=== PATIENT | female | born 1935 | race African-American/Black ===

== ENCOUNTER 2017-03-07 14:50 | Emergency (ER) | payer OTHER ==
[2017-03-07 15:20] VITALS: TEMP 97.3; BMI 20.7
--- NOTE | 2017-03-07 15:30 | PDOC ---
Attending Attestation - Resident Resident Name: Heather Abarca - HPI HPI: 03/07/17 18:48 Pt presents to the ED after witnessed fall down 12 stairs. Denies pain. Denies LOC. Patient was able to ambulate after the injury. - Physicial Exam PE: 03/07/17 18:49 Agree with resident exam. Patient is alert and oriented x 3, with no external signs of trauma except for small abrasion to head. Bedside FAST negative. - Medical Decision Making 03/07/17 18:53 Pt presents to the ED after fall down 12 stairs. Despite age and mechanism of injury, patient is largely asymptomatic. Ct head and C spine checked to rule out intracranial or cervical spinal injury. Xray pelvis is negative for fx. Will check cxr to rule out rib fracture. Patient complaining of vertigo, improved after meclizine. Will discharge home if cxr is negative.
--- NOTE | 2017-03-07 15:45 | PDOC ---
History of Present Illness - General Chief Complaint: Injury Stated Complaint: FALL/HEAD INJURY Time Seen by Provider: 03/07/17 15:28 History Source: Patient - History of Present Illness Initial Comments: 03/07/17 15:43 Patient is a 81 y.o. female with a PMH of HTN, DLD, Breast CA (s/p radiation) who presents following a fall down 12 stairs. Patient states she was walking down a flight of stairs when she tripped and slid down the stairs on her back. Patient denies any pre-fall dyspnea, chest pain, nausea or lightheadedness. Patient denies any post fall LOC and was immediately ambulatory after the fall. Patient is c/o of headache but denies and visual changes, AMS, nausea/ vomiting. NKDA Surgical: cholecystectomy Past History - Past Medical History Allergies/Adverse Reactions: Allergies Allergy/AdvReac Type Severity Reaction Status Date / Time No Known Drug Allergies Allergy Verified 03/07/17 15:17 Home Medications: Ambulatory Orders Atenolol [Tenormin -] 50 mg PO DAILY 03/07/17 Bimatoprost [Lumigan] 1 drop OU HS 03/07/17 Brimonidine Tartrate/Timolol [Combigan Eye Drops] 1 drop OU BID 03/07/17 Diltiazem Cd [Cardizem Cd -] 240 mg PO DAILY 03/07/17 Hydrochlorothiazide 12.5 mg PO DAILY 03/07/17 Lisinopril [Prinivil -] 40 mg PO DAILY 03/07/17 Meclizine HCl 25 mg PO TID PRN #21 tab.chew 03/07/17 [place]-3 Fatty Acids [[place]-3] 1,000 mg PO DAILY 03/07/17 Pilocarpine 4% [Pilostat 4% -] 1 drop OS TID 03/07/17 Cancer: Yes (lt breast) COPD: No HTN: Yes - Immunization History Immunization Up to Date: No - Suicide/Smoking/Psychosocial Hx Smoking History: Never smoked Have you smoked in the past 12 months: No Information on smoking cessation initiated: No Hx Alcohol Use: No Drug/Substance Use Hx: No Substance Use Type: None Review of Systems - Review of Systems Constitutional: No: Chills, Fever HEENTM: No: Blurred Vision, Double Vision Respiratory: No: Shortness of Breath Cardiac (ROS): No: Chest Pain, Lightheadedness *Physical Exam - Vital Signs Last Vital Signs Temp Pulse Resp BP Pulse Ox 97.3 F L 52 L 20 175/58 98 03/07/17 15:17 03/07/17 15:17 03/07/17 15:17 03/07/17 15:17 03/07/17 15:17 - Physical Exam General Appearance: Yes: Nourished, Appropriately Dressed HEENT: positive: EOMI, BRITTNY, Other ((-) Peña sign). negative: TM Bulging, TM Dull, TM Erythema Neck: positive: Trachea midline, Supple Respiratory/Chest: positive: Lungs Clear Cardiovascular: positive: S1, S2 Gastrointestinal/Abdominal: positive: Normal Bowel Sounds, Soft Musculoskeletal: positive: Other (No C-spine/vertebral tenderness/step-off; patient moving all 4 extremities). negative: Decreased Range of Motion, Vertebral Tenderness Neurologic: positive: bobbin doffer II-XII NML intact, Fully Oriented, Alert ED Treatment Course - RADIOLOGY Radiology Studies Ordered: Category Date Time Status CERVICAL SPINE CT W/O CONTR [CT] Stat CT Scan 03/07/17 15:[address] WITHOUT CONTRAST [CT] Stat CT Scan 03/07/17 15:33 Ordered CHEST PA & LAT [RAD] Stat Radiology 03/07/17 15:39 Ordered PELVIS [RAD] Stat Radiology 03/07/17 15:38 Ordered Medical Decision Making - Medical Decision Making 03/07/17 16:06 Patient is an 81 y.o. female who presents following a likely mechanical fall. On PE patient is hemodynamically stable, alert, moving all 4 extremities. PLAN: 1. CT Head 2. C-spine 03/07/17 17:28 CT Head/C-spine negative. Bedside FAS negative. Patient c/o vertigo. Meclizine for vertigo + Tylenol for pain control. Will irrigate superficial head laceration, CXR/Pelvic XR pending. Reasess. 03/07/17 20:36 Patient resting comfortably. Meclizine for vertigo. Patient signed out to Dr. Beasley (Resident) and Dr. Dolan (Attending) - likely dispo home pending CXR result. *DC/Admit/Observation/Transfer Diagnosis at time of Disposition: Injury - Prescriptions Prescriptions: Meclizine HCl 25 mg PO TID PRN #21 tab.chew PRN Reason: Headache - Referrals Referrals: Tiffani Sandoval [Primary Care Provider] - - Patient Instructions - Post Discharge Activity
[2017-03-07] MEDS ORDERED: ACETAMINOPHEN 500 MG TABLET (FP) PO ONE (17:12)
[2017-03-07] MEDS ORDERED: MECLIZINE HCL 12.5 MG TABLET PO ONE (17:13)
[2017-03-07] MEDS ORDERED: MECLIZINE HCL 12.5 MG TABLET ONE (17:21)
[2017-03-07] MEDS ORDERED: ACETAMINOPHEN 325 MG TABLET (FP) ONE (17:21)
[2017-03-07 17:47] VITALS: BP 175/65; PULSE 55
[2017-03-07] MEDS ORDERED: TETANUS IMMUNE GLOBULIN 250 UNITS DISP.SYRIN IM ONE (18:55)
[2017-03-07] MEDS ORDERED: DIPHTH,PERTUSS(ACELL),TET 0.5 ML DISP.SYRIN IM ONE (18:58)
--- NOTE | 2017-03-07 21:55 | PDOC ---
*Physical Exam - Vital Signs Last Vital Signs Temp Pulse Resp BP Pulse Ox 97.3 F L 55 L 16 175/65 100 03/07/17 17:46 03/07/17 17:46 03/07/17 17:46 03/07/17 17:46 03/07/17 17:46 03/07/17 21:48 Patient's care signed out to me by Dr. Abarca at the beginning of my shift. 81F with HTN, DLD, Breast CA (s/p radiation) p/w mechanical fall and and slid down 12 stairs. Patient is c/o of headache but denies and visual changes, AMS, nausea /vomiting. Awaiting CXR official read from radiologist. If the CXR shows no acute processes, and the patient's re-assessment is benign, she will be discharged home. ED Treatment Course - Medications Given in the ED: ED Medications Discontinued Medications Generic Name Dose Route Start Last Admin Trade Name Freq PRN Reason Stop Dose Admin Acetaminophen 1,000 mg 03/07/17 17:12 03/07/17 17:25 Tylenol - PO 03/07/17 17:13 1,000 mg ONCE ONE Administration Diphtheria/Tetanus/Acell Pertussis 0.5 ml 03/07/17 18:58 03/07/17 20:25 Boostrix - IM 03/07/17 18:59 0.5 ml .ONCE ONE Administration Meclizine HCl 12.5 mg 03/07/17 17:13 03/07/17 17:26 Antivert - PO 03/07/17 17:14 12.5 mg ONCE ONE Administration Tetanus Immune Globulin 250 units 03/07/17 18:55 03/07/17 21:26 Hypertet S-D 250 Units Syringe - IM 03/07/17 18:56 Not Given .ONCE ONE *DC/Admit/Observation/Transfer Diagnosis at time of Disposition: Fall Qualifiers: Encounter type: initial encounter Qualified Code(s): W19.XXXA - Unspecified fall, initial encounter Headache Qualifiers: Headache type: unspecified Headache chronicity pattern: unspecified pattern Intractability: not intractable Qualified Code(s): R51 - Headache Closed head injury Qualifiers: Encounter type: initial encounter Qualified Code(s): S09.90XA - Unspecified injury of head, initial encounter Scalp abrasion Qualifiers: Encounter type: initial encounter Qualified Code(s): S00.01XA - Abrasion of scalp, initial encounter - Discharge Dispostion Disposition: HOME Condition at time of disposition: Stable Admit: No - Prescriptions Prescriptions: Meclizine HCl 25 mg PO TID PRN #21 tab.chew PRN Reason: Headache - Referrals Referrals: Tiffani Sandoval [Primary Care Provider] - - Patient Instructions Printed Discharge Instructions: DI for Closed Head Injury Additional Instructions: You were seen in the ER for a fall down stairs and a headache. We did a head CT , neck CT, hip/pelvis x-ray, and chest x-ray and there were no concerning findings. We also noted an abrasion on your head that did not need stitches. Please follow up with your regular doctor early next week, or return to the ER for any new or worsening symptoms. - Post Discharge Activity
== END 2017-03-07 22:08 | disposition home or self-care (01) ==
LOC: JER 14:50
PROC: 3E0234Z Introduction of Serum, Toxoid and Vaccine into Muscle, Percutaneous Approach (ICD-10-PCS; principal; 2017-03-07)
DX: S01.01XA Laceration without foreign body of scalp, initial encounter (principal); W10.8XXA Fall (on) (from) other stairs and steps, initial encounter; Y93.89 Activity, other specified; Y92.89 Other specified places as the place of occurrence of the external cause; Y99.8 Other external cause status; I10 Essential (primary) hypertension; Z85.3 Personal history of malignant neoplasm of breast
CPT/HCPCS: 70450-TC; 71045-TC; 72125-TC; 72170-TC; 90471; 90715; 99282-25

== ENCOUNTER 2017-05-22 21:08 | Inpatient (IN) | payer OTHER ==
[2017-05-22] MEDS ORDERED: ASPIRIN 81 MG CHEWABLE TABLETS PO ONE (21:34)
--- NOTE | 2017-05-22 21:36 | PDOC ---
Rapid Medical Evaluation Time Seen by Provider: 05/22/17 21:32 Medical Evaluation: Allergies Allergy/AdvReac Type Severity Reaction Status Date / Time No Known Drug Allergies Allergy Verified 03/07/17 15:17 05/22/17 21:32 I have performed a brief in-person evaluation of this patient. The patient presents with a chief complaint of: "funny feeling in chest" Pertinent physical exam findings: anitra to 28, weak appearing I have ordered the following: cardiac workup The patient will proceed to the ED for further evaluation. Discharge Disposition - Diagnosis Chest discomfort - Referrals - Patient Instructions - Post Discharge Activity
[2017-05-22 21:59] LABS: BASO % 0.5 % (0-2.0); EOS % 0.9 % (0-4.5); HEMATOCRIT 34.1 % (32.4-45.2); HEMOGLOBIN 11.7 GM/dL (10.7-15.3); LYMPH % 19.7 % (8-40); MCH 32.9 pg (25.7-33.7); MCHC 34.2 g/dl (32.0-36.0); MEAN CELL VOLUME 96.1 fl (80-96); MONO % 7.4 % (3.8-10.2); NEUT % 71.5 % (42.8-82.8); PLATELET COUNT 195 K/MM3 (134-434); RBC 3.54 M/mm3 (3.60-5.2); WHITE BLOOD COUNT 9.2 K/mm3 (4.0-10.0)
[2017-05-22 22:13] LABS: INR 1.07 (0.82-1.09); PROTHROMBIN TIME (PATIENT) 12.1 SEC (9.98-11.88)
--- NOTE | 2017-05-22 22:24 | PDOC ---
History of Present Illness - General Chief Complaint: Chest Pain Stated Complaint: COLD SYMPTOMS Time Seen by Provider: 05/22/17 21:32 History Source: Patient Exam Limitations: No Limitations - History of Present Illness Initial Comments: 05/22/17 22:18 Patient is an 81F with history of a heart murmur, HTN, HLD, and breast cancer here today complaining of weakness, shortness of breath and chest pain that started today. She describes the pain as a pressure in her substernal chest. Denies fevers, chills, nausea, vomiting, cough. She endorses associated shortness of breath. She states that her legs have been more swollen recently. Denies ever having a blood clot, recent travel. Patient takes cardizem and atenolol, denies history of afib or prior cardiac issues. Past History - Past Medical History Allergies/Adverse Reactions: Allergies Allergy/AdvReac Type Severity Reaction Status Date / Time No Known Drug Allergies Allergy Verified 05/22/17 22:18 Home Medications: Ambulatory Orders Atenolol [Tenormin -] 50 mg PO DAILY 03/07/17 Bimatoprost [Lumigan] 1 drop OU HS 03/07/17 Brimonidine Tartrate/Timolol [Combigan Eye Drops] 1 drop OU BID 03/07/17 Diltiazem Cd [Cardizem Cd -] 240 mg PO DAILY 03/07/17 Hydrochlorothiazide 12.5 mg PO DAILY 03/07/17 Lisinopril [Prinivil -] 40 mg PO DAILY 03/07/17 Meclizine HCl 25 mg PO TID PRN #21 tab.chew 03/07/17 [place]-3 Fatty Acids [[place]-3] 1,000 mg PO DAILY 03/07/17 Pilocarpine 4% [Pilostat 4% -] 1 drop OS TID 03/07/17 Cancer: Yes (lt breast) COPD: No HTN: Yes - Immunization History Immunization Up to Date: No - Suicide/Smoking/Psychosocial Hx Smoking History: Never smoked Have you smoked in the past 12 months: No Information on smoking cessation initiated: No Hx Alcohol Use: No Drug/Substance Use Hx: No Substance Use Type: None Review of Systems - Review of Systems Comments:: 05/22/17 22:20 GENERAL/CONSTITUTIONAL: No fever or chills. Positive for weakness. HEAD, EYES, EARS, NOSE AND THROAT: No change in vision. No sore throat. CARDIOVASCULAR: Positive for chest pain and shortness of breath RESPIRATORY: No cough, wheezing, or hemoptysis. GASTROINTESTINAL: No nausea, vomiting, diarrhea or constipation. GENITOURINARY: No dysuria, frequency, or change in urination. MUSCULOSKELETAL: No joint or muscle swelling or pain. No neck or back pain. SKIN: No rash NEUROLOGIC: No headache, vertigo, loss of consciousness, or change in strength/ sensation. HEMATOLOGIC/LYMPHATIC: No anemia, easy bleeding, or history of blood clots. ALLERGIC/IMMUNOLOGIC: No hives or skin allergy. *Physical Exam - Vital Signs Last Vital Signs Temp Pulse Resp BP Pulse Ox 36 L 18 118/69 100 05/22/17 21:15 05/22/17 21:15 05/22/17 21:15 05/22/17 21:15 - Physical Exam Comments: 05/22/17 22:21 GENERAL: Awake, alert, and fully oriented, in no acute distress HEAD: No signs of trauma, normocephalic, atraumatic EYES: PERRLA, EOMI, sclera anicteric, conjunctiva clear ENT: Auricles normal inspection, hearing grossly normal, nares patent, oropharynx clear without exudates. Moist mucosa NECK: Normal ROM, supple, no lymphadenopathy, JVD, or masses LUNGS: No distress, speaks full sentences, clear to auscultation bilaterally HEART: Bradycardic, no m/r/g, peripheral pulses normal and equal bilaterally. ABDOMEN: Soft, nontender, normoactive bowel sounds. No guarding, no rebound. No masses EXTREMITIES: Normal inspection, Normal range of motion, bilateral pitting edema. No clubbing or cyanosis. NEUROLOGICAL: Cranial nerves II through XII grossly intact. Normal speech, no focal sensorimotor deficits SKIN: Warm, Dry, normal turgor, no rashes or lesions noted. Heart Score/ECG Review - History History: Moderately suspicious - Electrocardiogram EKG: Non specific repolarization disturbance - Age Age: >/= 65 - Risk Factors Risk Factors Heart Score: Yes Hx Hypercholesterolemia, Yes Hx Hypertension Based on the list above the patient has:: 1-2 risk factors - Troponin Troponin: 1-3x normal limit - Score Heart Score - Total: 6 ED Treatment Course - LABORATORY CBC & Chemistry Diagram: 05/22/17 21:51 05/22/17 21:51 - ADDITIONAL ORDERS Additional order review: Laboratory Results 05/22/17 21:51 PT with INR 12.10 H INR 1.07 05/22/17 21:51 RBC 3.54 L MCV 96.1 H MCHC 34.2 RDW 13.0 MPV 10.0 Neutrophils % 71.5 Lymphocytes % 19.7 D Monocytes % 7.4 Eosinophils % 0.9 D Basophils % 0.5 Medical Decision Making - Medical Decision Making 05/22/17 22:21 Patient is an 81F with history of HTN, HLD, Breast cancer, heart murmur here today with shortness of breath, chest pain, bilateral pitting edema. Vital signs notable for bradycardia to 30s, BPs stable, patient mentating well. Has some chest pain and shortness of breath, but appears comfortable. DDx includes, but is not limited to: ACS, arrhythmia, CHF exacerbation. EKG shows junctional bradycardia, no p waves visible. Rate 32. Diffusely flattened t waves, inverted in V5/6. . No st depressions or inversions. Normal QRS width. 05/22/17 22:27 CXR shows mild pulmonary vascular congestion, no acute cardiopulmonary process. 05/22/17 22:49 Patient reassessed, HR now 43. BPs remain stable. Patient asymptomatic. 05/22/17 22:52 Laboratory Tests 04/04/15 05/22/17 05/22/17 23:41 21:51 21:51 WBC 9.2 Hgb 11.7 Hct 34.1 Plt Count 195 INR 1.07 Potassium BUN Creatinine 1.9 H Troponin I 05/22/17 21:51 WBC Hgb Hct Plt Count INR Potassium 5.0 BUN 48 H Creatinine 3.0 H Troponin I 0.13 H CBC normal. Troponin in indeterminate zone at .13. Cr 3.0, only other prior value 1.9. 05/22/17 22:58 Dr Cm from cardiology consulted. Patient is stable, does not need immediate placement of pacemaker or transfer. Suggest placement of patient in ICU for close monitored. Suggests giving calcium or glucagon if patient becomes unstable. 05/22/17 23:07 Approved for ICU by CEDRICK Contreras. Accepted for admission by Dr Rubi. *DC/Admit/Observation/Transfer Diagnosis at time of Disposition: Chest pain - Discharge Dispostion Condition at time of disposition: Guarded Admit: Yes - Referrals - Patient Instructions - Post Discharge Activity
[2017-05-22 22:31] LABS: ALBUMIN 3.1 g/dl (3.4-5.0); ANION GAP 10 (8-16); BILIRUBIN,TOTAL 0.2 mg/dL (0.2-1.0); BLOOD UREA NITROGEN 48 mg/dL (7-18); CALCIUM 8.6 mg/dL (8.5-10.1); CHLORIDE 102 mmol/L (98-107); CO2 26 mmol/L (21-32); GLUCOSE,RANDOM 158 mg/dL (74-106); MAGNESIUM 2.9 mg/dL (1.8-2.4); SGOT/AST 98 U/L (15-37); SGPT/ALT 95 U/L (12-78); SODIUM 138 mmol/L (136-145); TOT PROT 7.5 g/dl (6.4-8.2)
[2017-05-22 22:33] LABS: ALK PHOS 93 U/L (45-117)
[2017-05-22] MEDS ORDERED: ASPIRIN 81 MG CHEWABLE TABLETS ONE (22:58)
--- NOTE | 2017-05-22 23:32 | CONSULT ---
Consult - text type - Consultation Consultation Note: Pt seen and examined CC: Bradycardia, chest pain HPI: Briefly Ms Aguirre is an 81F with history of a heart murmur, HTN, HLD, and breast cancer (not on active chemo) who presented to ED today with 1 day hx of weakness, SOB, and substernal chxt pressure. This is a novel complaint for her. She denies LOC, N/V/D, sick prodrome or contacts, falls, recent illness or hospitalization. No recent med changes. No hx of dysrhthmias. She also relates mild increase in LE edema. No hx of recent travel. In ED pt was afebrile, normotensive, HR in 30s, RR 20, spo2 oK on RA. EKG showed junctional rhythm, no p waves, twave flattening in lateral leads, no ST elevation, intervals otherwise WNL. Electrolytes WNL. Cr elevated at 3, up from 1.6 ~ 2 yrs ago. Trop Pt was without acute decompensation. Cardiology was consulted. [place] likely to be med related, and asked for ICU admission. Opted against TVP. First Trop 0.13. Given Asa 162mg. Transferred to ICU, on arrival in ICU pt converted to sinus with HR 62, without complaint or hemodynamic changes. Recent Travel: none PAST MEDICAL HISTORY: as above PAST SURGICAL HISTORY: as above, cholecystectomy (>30 yrs ago), hysterectomy Social History: retired Smoking: denies Alcohol: denies Drugs: denies Family History: father- HTN, stroke (1972) - passed at age 67, eldest brother - stroke Allergies No Known Drug Allergies Allergy (Verified 05/22/17 22:18) HOME MEDICATIONS: Home Medications Medication Instructions Recorded Atenolol [Tenormin -] 50 mg PO DAILY 03/07/17 Bimatoprost [Lumigan] 1 drop OU HS 03/07/17 Brimonidine Tartrate/Timolol 1 drop OU BID 03/07/17 [Combigan Eye Drops] Diltiazem Cd [Cardizem Cd -] 240 mg PO DAILY 03/07/17 Hydrochlorothiazide 12.5 mg PO DAILY 03/07/17 [place]-3 Fatty Acids [[place]-3] 1,000 mg PO DAILY 03/07/17 Pilocarpine 4% [Pilostat 4% -] 1 drop OS TID 03/07/17 Amlodipine Besylate/Valsartan 1 each PO DAILY 05/22/17 [Amlodipine-Valsartan 10-160 mg] Folic Acid - 1 mg PO DAILY 05/22/17 Rosuvastatin [Crestor -] 5 mg PO HS 05/22/17 Current Medications Atropine Sulfate (Atropine Injection -) 0.4 mg IVPUSH Q6H PRN PRN Reason: MAP<65mm Hg OR SBP <90 Chlorhexidine Gluconate (Hibiclens For Decolonization -) 1 applic TP HS MARIA TERESA Sodium Chloride (Normal Saline -) 1,000 mls @ 75 mls/hr IV ASDIR MARIA TERESA Mupirocin (Bactroban Ointment (For Decolonization) -) 1 applic NS BID MARIA TERESA Stop: 05/28/17 09:59 Non-Formulary Medication (Bimatoprost [Lumigan]) 1 drop OU HS MARIA TERESA Non-Formulary Medication (Brimonidine Tartrate/Timolol [Combigan 0.2%-0.5% Eye Drops]) 1 drop OU BID MARIA TERESA Pilocarpine HCl (Pilostat 4% -) 1 drop OS TID MARIA TERESA Rosuvastatin Calcium (Crestor -) 5 mg PO HS MARIA TERESA CBCD WBC 9.2 K/mm3 (4.0-10.0) 05/22/17 21:51 RBC 3.54 M/mm3 (3.60-5.2) L 05/22/17 21:51 Hgb 11.7 GM/dL (10.7-15.3) 05/22/17 21:51 Hct 34.1 % (32.4-45.2) 05/22/17 21:51 MCV 96.1 fl (80-96) H 05/22/17 21:51 MCHC 34.2 g/dl (32.0-36.0) 05/22/17 21:51 RDW 13.0 % (11.6-15.6) 05/22/17 21:51 Plt Count 195 K/MM3 (134-434) 05/22/17 21:51 MPV 10.0 fl (7.5-11.1) 05/22/17 21:51 CMP Sodium 138 mmol/L (136-145) 05/22/17 21:51 Potassium 5.0 mmol/L (3.5-5.1) 05/22/17 21:51 Chloride 102 mmol/L (98-107) 05/22/17 21:51 Carbon Dioxide 26 mmol/L (21-32) 05/22/17 21:51 Anion Gap 10 (8-16) 05/22/17 21:51 BUN 48 mg/dL (7-18) H 05/22/17 21:51 Creatinine 3.0 mg/dL (0.55-1.02) H 05/22/17 21:51 Creat Clearance w eGFR 14.98 (>60) 05/22/17 21:51 Random Glucose 158 mg/dL (74-106) H 05/22/17 21:51 Calcium 8.6 mg/dL (8.5-10.1) 05/22/17 21:51 Total Bilirubin 0.2 mg/dL (0.2-1.0) D 05/22/17 21:51 AST 98 U/L (15-37) H 05/22/17 21:51 ALT 95 U/L (12-78) H 05/22/17 21:51 Alkaline Phosphatase 93 U/L (45-117) 05/22/17 21:51 Total Protein 7.5 g/dl (6.4-8.2) 05/22/17 21:51 Albumin 3.1 g/dl (3.4-5.0) L 05/22/17 21:51 CARDIAC ENZYMES Creatine Kinase 46 IU/L (26-192) 05/22/17 21:51 Troponin I 0.13 ng/ml (0.00-0.05) H 05/22/17 21:51 Vital Signs Temp 97.8 F 05/23/17 02:00 Pulse 63 05/23/17 02:00 Resp 18 05/23/17 02:00 BP 126/61 05/23/17 02:00 Pulse Ox 100 05/22/17 23:55 Intake & Output 05/22/17 05/22/17 05/23/17 11:59 23:59 11:59 Weight 66.366 kg Other: Voiding Method Toilet Height 4 ft 10 in Body Mass Index (BMI) 30.5 Weight Measurement Method Built in [facility] Weight Measurement Method Est/Stated by Patient ROS: 10 pt review, negative except as per HPI CXR: clear, no infiltrate or ptx EKG: junctional at 38 with diffuse flattened twave, inverted in V5, V6 GENERAL: eld woman, no distress HEENT: NCAT PERRL, EOMI LUNGS: Clear bilat, no wheezes HEART: RRR, no m/r/g ABDOMEN: Soft, NT, Non distended, no palp masses EXT: no edema, 2+ pulses throughout NEUROLOGICAL: non focal exam A/ 81 y/o woman with symptomatic bradycardia, medication or ACS related now resolved, admitted to ICU for observation P/ -cards consulted -holding antihtn and BB -tele -atropine, glucagon/Ca++ if reoccurs and unstable -TTE -serial trop x 3 -gentle hydration for ? ESPERANZA, f/u with outpt records for baseline Cr - ok for tele in am if remains in sinus Ben CHARLESP 2016 [id number]
[2017-05-23 00:46] VITALS: BMI 30.5
--- NOTE | 2017-05-23 01:07 | PDOC ---
Attending Attestation - HPI HPI: 05/23/17 01:08 Patient is an 81 year old female with a significant past medical history of HTN , DLD, Breast CA (s/p radiation), who presents to the ED with complaints of chest discomfort that began earlier tonight at 7:30pm. Patient reports initially feeling chest discomfort within her chest followed by associated symptoms of fever, chills and increased sweating, prompting her to come into the ED for further evaluaion. Denies nausea, vomiting. Denies contact with sick individuals, out of state travelling. Denies any other symptoms. Allergies: None Social history: No smoking. No alcohol. No illicit drugs. Surgical history: cholecystectomy, gallstones. PMD: Not on staff. <Efra Aguila - Last Filed: 05/23/17 01:08> - Resident Resident Name: Sen Rojas - ED Attending Attestation I have performed the following: I have examined & evaluated the patient, The case was reviewed & discussed with the resident, I agree w/resident's findings & plan, Exceptions are as noted - Physicial Exam PE: 05/23/17 01:06 *Physical Exam General Appearance: Yes: Appropriately Dressed. No: Apparent Distress, Intoxicated HEENT: positive: EOMI, BRITTNY, Normal ENT Inspection, Normal Voice, TMs Normal, Pharynx Normal. negative: Pale Conjunctivae, Photophobia, Scleral Icterus (R), Scleral Icterus (L) Neck: positive: Trachea midline, Normal Thyroid, Supple. negative: Tender, Rigid, Carotid bruit, Stridor, Lymphadenopathy (R), Lymphadenopathy (L), Thyromegaly Respiratory/Chest: positive: Lungs Clear, Normal Breath Sounds. negative: Chest Tender, Respiratory Distress, Accessory Muscle Use, Labored Respiration, RES, Crackles, Rales, Rhonchi, Stridor, Wheezing, Dullness Cardiovascular: positive: Mian Rhythm, Regular Rate, S1, S2. negative: Edema , JVD, Murmur, Bradycardia, Tachycardia Vascular Pulses: Dorsalis-Pedis (R): 2+, Doralis-Pedis (L): 2+ Gastrointestinal/Abdominal: positive: Normal Bowel Sounds, Flat, Soft. negative : Tender, Organomegaly, Pulsatile Mass, Increased Bowel Sounds, Decreased BS, Distended, Guarding, Rebound, Hernia, Hepatomegaly, Spleenomegaly Lymphatic: negative: Adenopathy, Tenderness Musculoskeletal: positive: Normal Inspection. negative: CVA Tenderness, Decreased Range of Motion Extremity: positive: Normal Capillary Refill, Normal Inspection, Normal Range of Motion, Pelvis Stable. negative: Tender, Pedal Edema, Swelling, Erythema Integumentary: positive: Normal Color, Dry, Warm. negative: Cyanotic, Erythema , Jaundice, Rash Neurologic: positive: cook syrup maker II-XII NML intact, Fully Oriented, Alert, Normal Mood/ Affect, Motor Strength 5/5. negative: EOM Palsy, Facial Droop, Sensory Deficit - Medical Decision Making 05/27/17 19:17 Pt admitted to ICU for further evaluation and care <Ludin Arnold - Last Filed: 05/27/17 19:17>
[2017-05-23] MEDS ORDERED: SODIUM CHLORIDE 1,000 ML IV SCH (01:30)
[2017-05-23] MEDS ORDERED: ATROPINE SO4 0.4 MG/1 ML VIAL IVPUSH PRN ×3 (01:30→19:35)
--- NOTE | 2017-05-23 02:06 | HP ---
CHIEF COMPLAINT: chest discomfort x 1 day PCP: HISTORY OF PRESENT ILLNESS: 81 y/o old F with a PMH likely aortic stenosis, HTN, HLD, L Breast CA 2005 (s/p radiation, and chemo pill for 5 yrs after), who presents to the ED c/o chest discomfort over the past day. As per pt, at 2pm, pt developed a "funny feeling" in her chest, which was intermittent. She is unable to adequately characterize it, but states that it was a/w diaphoresis and mild SOB at rest, and did not have radiation or associated chest pain. Her sx were mildly alleviated by placing cool water on her face. During this time, pt also endorsed nausea ( without emesis), and increased frequency of BM's, however not characterized as diarrhea. She denies palpitations, SHARMA, fever, chills, chest pain or pressure, or changes in urinary function. While in the ED, pt's EKG showed junctional bradycardia, without p waves visible , with rate of 32 and diffusely flattened t waves, inverted in V5-v6. She was given a dose of aspirin 162mg x 1, and was later reevaluated to have improved rate of in low 40's. Pt was asymptomatic at the time, cardiology was consulted and patient was recommended ICU placement for close observation. On exam in ICU , pt still w/o complaint of chest pain, feeling well. Pt states that she has had no significant past cardiac hx, and has never had an arrythmia in the past. She was just told by a grant coordinator recently that one of her heart valves was "narrow" when she had an ECHO done. ER course was notable for: (1) jnc bradycardia (2) aspirin 162mg PO x 1 (3) Trop + 0.13 Recent Travel: none PAST MEDICAL HISTORY: as above PAST SURGICAL HISTORY: as above, cholecystectomy (>30 yrs ago), hysterectomy Social History: retired Smoking: denies Alcohol: denies Drugs: denies Family History: father- HTN, stroke (1972) - passed at age 67, eldest brother - stroke Allergies No Known Drug Allergies Allergy (Verified 05/22/17 22:18) HOME MEDICATIONS: Home Medications Medication Instructions Recorded Atenolol [Tenormin -] 50 mg PO DAILY 03/07/17 Bimatoprost [Lumigan] 1 drop OU HS 03/07/17 Brimonidine Tartrate/Timolol 1 drop OU BID 03/07/17 [Combigan Eye Drops] Diltiazem Cd [Cardizem Cd -] 240 mg PO DAILY 03/07/17 Hydrochlorothiazide 12.5 mg PO DAILY 03/07/17 Phoenix-3 Fatty Acids [Phoenix-3] 1,000 mg PO DAILY 03/07/17 Pilocarpine 4% [Pilostat 4% -] 1 drop OS TID 03/07/17 Amlodipine Besylate/Valsartan 1 each PO DAILY 05/22/17 [Amlodipine-Valsartan 10-160 mg] Folic Acid - 1 mg PO DAILY 05/22/17 Rosuvastatin [Crestor -] 5 mg PO HS 05/22/17 REVIEW OF SYSTEMS CONSTITUTIONAL: Absent: fever, chills, diaphoresis, generalized weakness, malaise, loss of appetite, weight change HEENT: Absent: rhinorrhea, nasal congestion, throat pain, throat swelling, difficulty swallowing, mouth swelling, ear pain, eye pain, visual changes CARDIOVASCULAR: +chest discomfort Absent: chest pain, syncope, palpitations, irregular heart rate, lightheadedness , peripheral edema RESPIRATORY: +SOB Absent: cough, shortness of breath, dyspnea with exertion, orthopnea, wheezing, stridor, hemoptysis GASTROINTESTINAL: Absent: abdominal pain, abdominal distension, nausea, vomiting, diarrhea, constipation, melena, hematochezia GENITOURINARY: Absent: dysuria, frequency, urgency, hesitancy, hematuria, flank pain, genital pain MUSCULOSKELETAL: Absent: myalgia, arthralgia, joint swelling, back pain, neck pain SKIN: Absent: rash, itching, pallor HEMATOLOGIC/IMMUNOLOGIC: Absent: easy bleeding, easy bruising, lymphadenopathy, frequent infections ENDOCRINE: Absent: unexplained weight gain, unexplained weight loss, heat intolerance, cold intolerance NEUROLOGIC: Absent: headache, focal weakness or paresthesias, dizziness, unsteady gait, seizure, mental status changes, bladder or bowel incontinence PSYCHIATRIC: Absent: anxiety, depression, suicidal or homicidal ideation, hallucinations. PHYSICAL EXAMINATION Vital Signs 05/22/17 05/22/17 05/22/17 21:15 23:10 23:21 Temperature 97.6 F 97.6 F Pulse Rate 36 L 61 Pulse Rate [ 32 L Apical] Respiratory 18 18 18 Rate Blood Pressure 118/69 144/54 Blood Pressure 111/41 [Right Arm] O2 Sat by Pulse 100 100 100 Oximetry (%) GENERAL: Pleasant woman, resting comfortably. Awake, alert, and fully oriented, in no acute distress. HEAD: Normal with no signs of trauma. EYES: Pupils equal, round and reactive to light, extraocular movements intact, sclera anicteric, conjunctiva clear. EARS, NOSE, THROAT: Ears normal, nares patent, oropharynx clear without exudates. Dry mucous membranes NECK: Normal range of motion, supple LUNGS: Breath sounds equal, clear to auscultation bilaterally. No wheezes, and no crackles. No accessory muscle use. HEART: Regular rate and rhythm, normal S1 and S2. +systolic murmur 2nd IS. without rubs, thrills ABDOMEN: Soft, nontender, not distended, normoactive bowel sounds, no guarding, no rebound, no masses. MUSCULOSKELETAL: Decreased ROM in R knee d/t arthritis. No bony deformities or tenderness. No CVA tenderness. UPPER EXTREMITIES: 2+ radial pulses, warm, well-perfused. No cyanosis. No clubbing. No peripheral edema. LOWER EXTREMITIES: 2+ posterior tibial pulses, warm, well-perfused. No calf tenderness. No peripheral edema. NEUROLOGICAL: Cranial nerves II-XII intact. Laboratory Results 05/22/17 05/22/17 05/22/17 21:51 21:51 21:51 WBC 9.2 RBC 3.54 L Hgb 11.7 Hct 34.1 MCV 96.1 H MCH 32.9 MCHC 34.2 RDW 13.0 Plt Count 195 MPV 10.0 Neutrophils % 71.5 Lymphocytes % 19.7 D Monocytes % 7.4 Eosinophils % 0.9 D Basophils % 0.5 PT with INR 12.10 H INR 1.07 Sodium 138 Potassium 5.0 Chloride 102 Carbon Dioxide 26 Anion Gap 10 BUN 48 H Creatinine 3.0 H Creat Clearance w eGFR 14.98 Random Glucose 158 H Calcium 8.6 Magnesium 2.9 H Total Bilirubin 0.2 D AST 98 H ALT 95 H Alkaline Phosphatase 93 Creatine Kinase 46 Troponin I 0.13 H Total Protein 7.5 Albumin 3.1 L CXR: no infiltrates, without pleural effusion or pulm congestion EKG: junctional bradycardia, without p waves visible, with rate of 32 and diffusely flattened t waves, inverted in V5-v6 ASSESSMENT/PLAN: 81 y/o old F with a PMH likely aortic stenosis, HTN, HLD, L Breast CA 2005 (s/p radiation, and chemo pill for 5 yrs after), who presents to the ED c/o chest discomfort over the past day. Pt admitted to ICU for further monitoring of [facility] bradycardia. #Junctional bradycardia -Pt with initial EKG with rate 32 while in ED, without complaint of pain -Currently rate ~60's -Initial trop + 0.13 -continue to follow trops q6h, next trop 3AM -Serial EKGs -Cardio consult: Dr. Cm -Atropine 0.4 mg IVP q6h if symptomatic -As per cardio, does not need immediate placement of pacemaker or transfer -transcutaneous pacing if necessary to maintain HR >60 -calcium or glucagon if patient becomes unstable -ICU admission -Telemetry monitoring -F/u ECHO #HTN -Currently holding BP meds d/t bradycardia including: -Amlodipine/valsartan 10-160mg PO qd -Atenolol 50mg PO qd -Diltiazem 240 mg PO qd -HCTZ 25mg PO qd #ESPERANZA likely prerenal 2/2 fluid depletion -Pt clinically dry with bump in Cr to 1.9 to 3 (since 2015) -Gentle hydration IV NS 75 cc/hr -F/u renal sono -F/u urine lytes, Uosm, sOsm #HLD -Continue crestor 5mg PO qd #Hx L breast CA 2005 (s/p radiation, chemo pill 5 yrs after) -Currently without complaint -Continue outpatient f/u #F/E/N IV NS 75 cc/hr gentle hydration Serial lytes Sodium controlled diet ; can adjust accordingly #PPX DVT: Hep SQ 5000 BID #Dispo Need for ICU monitoring Visit type - Emergency Visit Emergency Visit: Yes ED Registration Date: 05/22/17 Care time: The patient presented to the Emergency Department on the above date and was hospitalized for further evaluation of their emergent condition. - New Patient This patient is new to me today: Yes Date on this admission: 05/23/17 - Critical Care Critical Care patient: No Hospitalist Screening - Colonoscopy Questionnaire Colonoscopy Questionnaire: Colonoscopy Questionnaire - Patient: 50 - 75 years old and never had a screening colonoscopy: Unknown History of colon or rectal polyps, or CA: Unknown History of IBD, Crohn's disease or UC: Unknown History of abdominal radiation therapy as a child: Unknown - Relative: 1 with colon or rectal CA, or polyps at age 60 or younger: Unknown Colon or rectal CA diagnosed at age 45 or younger: Unknown Multiple relatives with colon or rectal CA: Unknown - Outcome: Screening Result: Negative Screen
--- NOTE | 2017-05-23 03:12 | PN ---
Teaching Attending Note Name of Resident: Luciana Davidson ATTENDING PHYSICIAN STATEMENT I saw and evaluated the patient. Chart, data, imaging reviewed. I reviewed the resident's note and discussed the case with the resident. I agree with the resident's findings and plan as documented. SUBJECTIVE: 81 year old woman with HTN, DLD, Breast CA s/p left mastectomy and radiation presented with "funny" feeling in her chest which started 4/5 in the morning. She denied any chest pain or significant shortness of breath. She was found to be bradycardic in the ER with and EKG significant for junctional escape rhythm. Patient was otherwise hemodynamically stable. There was no syncope. Cardiology risk management professional was contacted and recommended admission to ICU. OBJECTIVE: Last Vital Signs Temp Pulse Resp BP Pulse Ox 97.8 F 63 18 126/61 100 05/23/17 02:00 05/23/17 02:00 05/23/17 02:00 05/23/17 02:00 05/22/17 23:55 General - appears comfortable, nad heent- at, nc, moist oral mucosa neck -supple, no jvd cv -s1+s2+ rrr, systolic murmur chest- cta b/l abdomen -soft, obese , scar sp cholecystectomy ext- no pedal edema appreciated Abnormal Lab Results 05/22/17 05/22/17 05/22/17 21:51 21:51 21:51 RBC 3.54 L MCV 96.1 H PT with INR 12.10 H BUN 48 H Creatinine 3.0 H Random Glucose 158 H Magnesium 2.9 H AST 98 H ALT 95 H Troponin I 0.13 H Albumin 3.1 L EKG -junctional escape rhythm, bradycardia ASSESSMENT AND PLAN: #Severe bradycardia with transient Junctional escape rhythm on EKG from ER. Currently asymptomatic. Elevated troponin may be cardiac in nature vs ESPERANZA. Low clinical suspiscion for ACS. -admit to ICU for monitoring -atropine 0.5mg IV PRN if symptomatic bradycardia -cardiology evaluation -transcutaneous pacing if necessary to maintain HR >60 -TTE -no Bblockers, or CCBs -trend troponins #ESPERANZA- unknown etiology -daily weights -I/o -rendon catheter -avoid nephrotoxic meds -renal U/S -urine lytes -urine osm -serum osm -UA -continue regular home medications #DVT ppx -heparin sc
[2017-05-23 06:02] LABS: BASO % 0.5 % (0-2.0); EOS % 0.2 % (0-4.5); HEMATOCRIT 33.4 % (32.4-45.2); HEMOGLOBIN 11.6 GM/dL (10.7-15.3); LYMPH % 20.7 % (8-40); MCH 33.2 pg (25.7-33.7); MCHC 34.8 g/dl (32.0-36.0); MEAN CELL VOLUME 95.6 fl (80-96); MEAN PLT VOLUME 11.3 fl (7.5-11.1); MONO % 6.5 % (3.8-10.2); NEUT % 72.1 % (42.8-82.8); PLATELET COUNT 155 K/MM3 (134-434); RBC 3.49 M/mm3 (3.60-5.2); RDW 12.6 % (11.6-15.6); WHITE BLOOD COUNT 8.7 K/mm3 (4.0-10.0)
[2017-05-23 06:20] LABS: ANION GAP 10 (8-16); BLOOD UREA NITROGEN 48 mg/dL (7-18); CALCIUM 8.9 mg/dL (8.5-10.1); CHLORIDE 104 mmol/L (98-107); CO2 26 mmol/L (21-32); CREATININE 2.4 mg/dL (0.55-1.02); GLUCOSE,RANDOM 90 mg/dL (74-106); MAGNESIUM 2.9 mg/dL (1.8-2.4); PHOSPHOROUS 4.5 mg/dL (2.5-4.9); POTASSIUM 4.3 mmol/L (3.5-5.1); SODIUM 140 mmol/L (136-145)
[2017-05-23 06:28] LABS: INR 1.05 (0.82-1.09); PROTHROMBIN TIME (PATIENT) 11.9 SEC (9.98-11.88)
[2017-05-23] MEDS ORDERED: TIMOLOL 0.5% OPHTHALMIC SOL 5 ML BOTTLE OU SCH (10:00)
[2017-05-23] MEDS ORDERED: BRIMONIDINE TARTRATE 0.2% OPHTHALMIC 5 ML BOTTLE OU SCH (10:00)
[2017-05-23] MEDS ORDERED: PATIENT'S OWN MEDICATION (NON-FORMULARY) (Brimonidine Tartrate/Timolol [Combigan 0.2%-0.5% OU SCH (10:00)
[2017-05-23] MEDS ORDERED: MUPIROCIN 2% TOPICAL OINTMENT FOR DECOLONIZATION NS SCH (10:00)
[2017-05-23] MEDS ORDERED: HEPARIN NA (PORCINE) 5,000 UNITS/ML 1ML VIAL SQ SCH (10:00)
[2017-05-23] MEDS ORDERED: PT OWN MED DRAWER 7, Y5N ONE (10:50)
--- NOTE | 2017-05-23 11:54 | CON.CARD ---
Cardiology Consult (text) - Consultation Consultation Note: cc: cp hpi: 81 f hx htn, hld, breast ca here with cp. Occasionally has central chest tightness, mild, better when rubs chest. Had it yesterday at rest but stronger than usual. Also had diaphoresis and generalized weakness. No palps, dizzy, loc, pnd, orthopnea, le edema. In ER found to be in sinus arrest with jcnal escape in 30s. Bp stable. Monitored in icu overnight and now in sr, 60s-70s. Pt feels well, no further cp. pmh: per hpi psh: nc social: no tob ros: per hpi; no vomiting, fever, nausea, diarrhea, miller, vision changes, muscle pains, hematuria, dysuria, gib fam: no premature cad meds: Ambulatory Orders Atenolol [Tenormin -] 50 mg PO DAILY 03/07/17 Bimatoprost [Lumigan] 1 drop OU HS 03/07/17 Brimonidine Tartrate/Timolol [Combigan Eye Drops] 1 drop OU BID 03/07/17 Diltiazem Cd [Cardizem Cd -] 240 mg PO DAILY 03/07/17 Hydrochlorothiazide 12.5 mg PO DAILY 03/07/17 Cabins-3 Fatty Acids [Cabins-3] 1,000 mg PO DAILY 03/07/17 Pilocarpine 4% [Pilostat 4% -] 1 drop OS TID 03/07/17 Amlodipine Besylate/Valsartan [Amlodipine-Valsartan 10-160 mg] 1 each PO DAILY 05/22/17 Folic Acid - 1 mg PO DAILY 05/22/17 Rosuvastatin [Crestor -] 5 mg PO HS 05/22/17 pe: Vital Signs Temp 98.0 F 05/23/17 10:00 Pulse 71 05/23/17 10:00 Resp 17 05/23/17 10:00 BP 115/44 05/23/17 10:00 Pulse Ox 100 05/22/17 23:55 Intake & Output 05/22/17 05/22/17 05/23/17 11:59 23:59 11:59 Intake Total 300 Output Total 400 Balance -100 Weight 146 lb 5 oz 146 lb 5 oz Intake: IV 300 Normal Saline - 1,000 ml 300 @ 75 mls/hr IV ASDIR MARIA TERESA Rx#:[id number] Output: Urine 400 Void 400 Other: Voiding Method Toilet Height 4 ft 10 in Body Mass Index (BMI) 30.5 Weight Measurement Method [facility] Method Est/Stated by Patient nad no jvd rrr s1s2 no r/g, + murmur cta bl nl eff no le e/c/c abd nt nd pos bs no jaundice diaphoresis +dp pt no carotid bruits aa0x3 Laboratory Last Values WBC 8.7 K/mm3 (4.0-10.0) 05/23/17 05:15 RBC 3.49 M/mm3 (3.60-5.2) L 05/23/17 05:15 Hgb 11.6 GM/dL (10.7-15.3) 05/23/17 05:15 Hct 33.4 % (32.4-45.2) 05/23/17 05:15 MCV 95.6 fl (80-96) 05/23/17 05:15 MCH 33.2 pg (25.7-33.7) 05/23/17 05:15 MCHC 34.8 g/dl (32.0-36.0) 05/23/17 05:15 RDW 12.6 % (11.6-15.6) 05/23/17 05:15 Plt Count 155 K/MM3 (134-434) D 05/23/17 05:15 MPV 11.3 fl (7.5-11.1) H D 05/23/17 05:15 Neutrophils % 72.1 % (42.8-82.8) 05/23/17 05:15 Lymphocytes % 20.7 % (8-40) 05/23/17 05:15 Monocytes % 6.5 % (3.8-10.2) 05/23/17 05:15 Eosinophils % 0.2 % (0-4.5) 05/23/17 05:15 Basophils % 0.5 % (0-2.0) 05/23/17 05:15 PT with INR 11.90 SEC (9.98-11.88) H 05/23/17 05:15 INR 1.05 (0.82-1.09) 05/23/17 05:15 Sodium 140 mmol/L (136-145) 05/23/17 05:15 Potassium 4.3 mmol/L (3.5-5.1) 05/23/17 05:15 Chloride 104 mmol/L (98-107) 05/23/17 05:15 Carbon Dioxide 26 mmol/L (21-32) 05/23/17 05:15 Anion Gap 10 (8-16) 05/23/17 05:15 BUN 48 mg/dL (7-18) H 05/23/17 05:15 Creatinine 2.4 mg/dL (0.55-1.02) H 05/23/17 05:15 Creat Clearance w eGFR 14.98 (>60) 05/22/17 21:51 Random Glucose 90 mg/dL (74-106) 05/23/17 05:15 Serum Osmolality 301 mosm/kg (278-305) 05/23/17 05:15 Calcium 8.9 mg/dL (8.5-10.1) 05/23/17 05:15 Phosphorus 4.5 mg/dL (2.5-4.9) 05/23/17 05:15 Magnesium 2.9 mg/dL (1.8-2.4) H 05/23/17 05:15 Total Bilirubin 0.2 mg/dL (0.2-1.0) D 05/22/17 21:51 AST 98 U/L (15-37) H 05/22/17 21:51 ALT 95 U/L (12-78) H 05/22/17 21:51 Alkaline Phosphatase 93 U/L (45-117) 05/22/17 21:51 Creatine Kinase 46 IU/L (26-192) 05/22/17 21:51 Troponin I 0.13 ng/ml (0.00-0.05) H 05/23/17 05:00 Total Protein 7.5 g/dl (6.4-8.2) 05/22/17 21:51 Albumin 3.1 g/dl (3.4-5.0) L 05/22/17 21:51 Blood Type B NEGATIVE 05/22/17 21:51 Antibody Screen Negative 05/22/17 21:51 initial ecg: sinus arrest with junctional escape in 30s repeat ecg: sr, nl intervals, nonspec st-t changes tele: sr 60s-70s cxr: clear lungs a/p: 81 f hx htn, hld, breast ca here with cp. bradycardia: -pt presented with sinus arrest and junctional escape rhythm in 30s -likely related to her home meds of both atenolol and dilt, along with ESPERANZA -after holding meds, now in NSR -avoid further use of meds that cause bradycardia -check echo, tsh -monitor on tele (ok to downgrade from icu now) cp: -atypical, resolved -no signs acs -possibly related to bradycardia -ce's neg -check echo -monitor for now murmur: -possibly -check echo esperanza on ckd: -improving today htn: -dc home dilt and atenolol as above -bp ok now, if needed would resume home norvasc. hold home arb 2/2 esperanza.
--- NOTE | 2017-05-23 12:01 | PN ---
Teaching Attending Note Name of Resident: Jamison Potter ATTENDING PHYSICIAN STATEMENT I saw and evaluated the patient. I reviewed the resident's note and discussed the case with the resident. I agree with the resident's findings and plan as documented. SUBJECTIVE: Patient seen and examined in the ICU. Awake and alert. No CP or SOB. ECHO being performed at the bedside. NSR noted. Intake & Output 05/20/17 05/21/17 05/22/17 05/23/17 23:59 23:59 23:59 23:59 Intake Total 300 Output Total 400 Balance -100 Weight 146 lb 5 oz 146 lb 5 oz Last Vital Signs Temp Pulse Resp BP Pulse Ox 98.0 F 71 17 115/44 100 05/23/17 10:00 05/23/17 10:00 05/23/17 10:00 05/23/17 10:00 05/22/17 23:55 Active Medications Atropine Sulfate (Atropine Injection -) 0.4 mg IVPUSH Q6H PRN PRN Reason: MAP<65mm Hg OR SBP <90 Brimonidine Tartrate (Alphagan 0.2% -) 1 drop OU BID [facility] Last Admin: 05/23/17 10:52 Dose: 1 drop Chlorhexidine Gluconate (Hibiclens For Decolonization -) 1 applic TP HS [facility] Heparin Sodium (Porcine) (Heparin -) 5,000 unit SQ BID [facility] Last Admin: 05/23/17 10:49 Dose: 5,000 unit Sodium Chloride (Normal Saline -) 1,000 mls @ 75 mls/hr IV ASDIR [facility] Last Admin: 05/23/17 02:00 Dose: 75 mls/hr Latanoprost (Xalatan 0.005% Eye Drops -) 1 drop OU HS [facility] Mupirocin (Bactroban Ointment (For Decolonization) -) 1 applic NS BID [facility] Stop: 05/28/17 09:59 Last Admin: 05/23/17 10:51 Dose: 1 applic Pilocarpine HCl (Pilostat 4% -) 1 drop OS TID MARIA TERESA Rosuvastatin Calcium (Crestor -) 5 mg PO HS [facility] Timolol Maleate (Timoptic 0.5%) 1 drop OU BID [facility] Last Admin: 05/23/17 10:51 Dose: 1 drop GENERAL: Awake and alert, NAD HEENT: NCAT PERRL, EOMI LUNGS: Clear, no wheezes HEART: RRR, IV/ DEEJAY heard best over LSB ABDOMEN: Soft, NT, Non distended, no palp masses EXT: trace edema, 2+ pulses throughout NEUROLOGICAL: non focal exam Laboratory Results - last 24 hr 05/22/17 05/22/17 05/22/17 21:51 21:51 21:51 WBC 9.2 RBC 3.54 L Hgb 11.7 Hct 34.1 MCV 96.1 H MCH 32.9 MCHC 34.2 RDW 13.0 Plt Count 195 MPV 10.0 Neutrophils % 71.5 Lymphocytes % 19.7 D Monocytes % 7.4 Eosinophils % 0.9 D Basophils % 0.5 PT with INR 12.10 H INR 1.07 Sodium 138 Potassium 5.0 Chloride 102 Carbon Dioxide 26 Anion Gap 10 BUN 48 H Creatinine 3.0 H Creat Clearance w eGFR 14.98 Random Glucose 158 H Serum Osmolality Calcium 8.6 Phosphorus Magnesium 2.9 H Total Bilirubin 0.2 D AST 98 H ALT 95 H Alkaline Phosphatase 93 Creatine Kinase 46 Troponin I 0.13 H Total Protein 7.5 Albumin 3.1 L Blood Type Antibody Screen 05/22/17 05/23/17 05/23/17 21:51 05:00 05:15 WBC 8.7 RBC 3.49 L Hgb 11.6 Hct 33.4 MCV 95.6 MCH 33.2 MCHC 34.8 RDW 12.6 Plt Count 155 D MPV 11.3 H D Neutrophils % 72.1 Lymphocytes % 20.7 Monocytes % 6.5 Eosinophils % 0.2 Basophils % 0.5 PT with INR INR Sodium Potassium Chloride Carbon Dioxide Anion Gap BUN Creatinine Creat Clearance w eGFR Random Glucose Serum Osmolality Calcium Phosphorus Magnesium Total Bilirubin AST ALT Alkaline Phosphatase Creatine Kinase Troponin I 0.13 H Total Protein Albumin Blood Type B NEGATIVE Antibody Screen Negative 05/23/17 05/23/17 05/23/17 05:15 05:15 05:15 WBC RBC Hgb Hct MCV MCH MCHC RDW Plt Count MPV Neutrophils % Lymphocytes % Monocytes % Eosinophils % Basophils % PT with INR 11.90 H INR 1.05 Sodium 140 Potassium 4.3 Chloride 104 Carbon Dioxide 26 Anion Gap 10 BUN 48 H Creatinine 2.4 H Creat Clearance w eGFR Random Glucose 90 Serum Osmolality 301 Calcium 8.9 Phosphorus 4.5 Magnesium 2.9 H Total Bilirubin AST ALT Alkaline Phosphatase Creatine Kinase Troponin I Total Protein Albumin Blood Type Antibody Screen IMP: Symptomatic bradycardia likely due to Beta biju R/O ACS Acute on CKD Holding BB ECHO IVF Follow Renal function Cardiology evaluation Cardiac Telemetry monitoring Dr Martinez Critical care time spent in reviewing chart, evaluating patient and formulating plan - 36 minutes.
--- NOTE | 2017-05-23 12:27 | EKG ---
Test Reason : Blood Pressure : / mmHG Vent. Rate : 062 BPM Atrial Rate : 062 BPM P-R Int : 196 ms QRS Dur : 080 ms QT Int : 402 ms P-R-T Axes : 027 -04 186 degrees QTc Int : 408 ms NORMAL SINUS RHYTHM MINIMAL VOLTAGE CRITERIA FOR LVH, MAY BE NORMAL VARIANT NONSPECIFIC ST AND T WAVE ABNORMALITY ABNORMAL ECG WHEN COMPARED WITH ECG OF 22-MAY-2017 21:52, SINUS RHYTHM HAS REPLACED JUNCTIONAL RHYTHM VENT. RATE HAS INCREASED BY 30 BPM NONSPECIFIC T WAVE ABNORMALITY HAS REPLACED INVERTED T WAVES IN LATERAL LEADS QT HAS LENGTHENED Confirmed by ALEKSANDAR MORRIS, MIGUEL ([id number]) on 05/23/2017 12:27:11 PM Referred By: Confirmed By:MIGUEL HUERTAS MD
--- NOTE | 2017-05-23 13:36 | PN ---
Physical Exam: SUBJECTIVE: Patient seen and examined No acute events overnight. Patient feels better this AM. In normal sinus rhtyhm. Denies chest pain, shortness of breath, or any palpitations. Yesterday found to have junctional bradycardia to the 30's. Patient started 2 new bp medications. OBJECTIVE: Vital Signs Period Temp Pulse Resp BP Sys/Camacho Pulse Ox Last 24 Hr 97.6 F-98.0 F 32-76 14-19 111-144/41-69 98-100 GENERAL: The patient is awake, alert, and fully oriented, in no acute distress. HEAD: Normal with no signs of trauma. EYES: PERRL, extraocular movements intact, sclera anicteric, conjunctiva clear. No ptosis. ENT: Oropharynx clear without exudates, dry mucous membranes. NECK: Trachea midline, full range of motion, supple. LUNGS: Breath sounds equal, clear to auscultation bilaterally, no wheezes, no crackles, no accessory muscle use. HEART: Regular rate and rhythm, S1, S2 +aortic stenosis murmur 3/6 ABDOMEN: Soft, nontender, nondistended, normoactive bowel sounds, no guarding, no rebound, no hepatosplenomegaly, no masses. EXTREMITIES: 2+ pulses, warm, well-perfused, no edema. NEUROLOGICAL: Cranial nerves II through XII grossly intact. Normal speech, gait not observed. PSYCH: Normal mood, normal affect. SKIN: Warm, dry, normal turgor, no rashes or lesions noted Laboratory Results - last 24 hr 05/22/17 05/22/17 05/22/17 21:51 21:51 21:51 WBC 9.2 RBC 3.54 L Hgb 11.7 Hct 34.1 MCV 96.1 H MCH 32.9 MCHC 34.2 RDW 13.0 Plt Count 195 MPV 10.0 Neutrophils % 71.5 Lymphocytes % 19.7 D Monocytes % 7.4 Eosinophils % 0.9 D Basophils % 0.5 PT with INR 12.10 H INR 1.07 Sodium 138 Potassium 5.0 Chloride 102 Carbon Dioxide 26 Anion Gap 10 BUN 48 H Creatinine 3.0 H Creat Clearance w eGFR 14.98 Random Glucose 158 H Serum Osmolality Calcium 8.6 Phosphorus Magnesium 2.9 H Total Bilirubin 0.2 D AST 98 H ALT 95 H Alkaline Phosphatase 93 Creatine Kinase 46 Troponin I 0.13 H Total Protein 7.5 Albumin 3.1 L Blood Type Antibody Screen 05/22/17 05/23/17 05/23/17 21:51 05:00 05:15 WBC 8.7 RBC 3.49 L Hgb 11.6 Hct 33.4 MCV 95.6 MCH 33.2 MCHC 34.8 RDW 12.6 Plt Count 155 D MPV 11.3 H D Neutrophils % 72.1 Lymphocytes % 20.7 Monocytes % 6.5 Eosinophils % 0.2 Basophils % 0.5 PT with INR INR Sodium Potassium Chloride Carbon Dioxide Anion Gap BUN Creatinine Creat Clearance w eGFR Random Glucose Serum Osmolality Calcium Phosphorus Magnesium Total Bilirubin AST ALT Alkaline Phosphatase Creatine Kinase Troponin I 0.13 H Total Protein Albumin Blood Type B NEGATIVE Antibody Screen Negative 05/23/17 05/23/17 05/23/17 05:15 05:15 05:15 WBC RBC Hgb Hct MCV MCH MCHC RDW Plt Count MPV Neutrophils % Lymphocytes % Monocytes % Eosinophils % Basophils % PT with INR 11.90 H INR 1.05 Sodium 140 Potassium 4.3 Chloride 104 Carbon Dioxide 26 Anion Gap 10 BUN 48 H Creatinine 2.4 H Creat Clearance w eGFR Random Glucose 90 Serum Osmolality 301 Calcium 8.9 Phosphorus 4.5 Magnesium 2.9 H Total Bilirubin AST ALT Alkaline Phosphatase Creatine Kinase Troponin I Total Protein Albumin Blood Type Antibody Screen 05/23/17 11:15 WBC RBC Hgb Hct MCV MCH MCHC RDW Plt Count MPV Neutrophils % Lymphocytes % Monocytes % Eosinophils % Basophils % PT with INR INR Sodium Potassium Chloride Carbon Dioxide Anion Gap BUN Creatinine Creat Clearance w eGFR Random Glucose Serum Osmolality Calcium Phosphorus Magnesium Total Bilirubin AST ALT Alkaline Phosphatase Creatine Kinase Troponin I 0.13 H Total Protein Albumin Blood Type Antibody Screen Active Medications Generic Name Dose Route Start Last Admin Trade Name Freq PRN Reason Stop Dose Admin Atropine Sulfate 0.4 mg 05/23/17 01:58 Atropine Injection - IVPUSH Q6H PRN MAP<65mm Hg OR SBP <90 Brimonidine Tartrate 1 drop 05/23/17 10:00 05/23/17 10:52 Alphagan 0.2% - OU 1 drop BID MARIA TERESA Administration Chlorhexidine Gluconate 1 applic 05/23/17 22:00 Hibiclens For Decolonization - TP HS MARIA TERESA Heparin Sodium (Porcine) 5,000 unit 05/23/17 10:00 05/23/17 10:49 Heparin - SQ 5,000 unit BID MARIA TERESA Administration Sodium Chloride 1,000 mls @ 75 mls/hr 05/23/17 01:30 05/23/17 02:00 Normal Saline - IV 75 mls/hr ASDIR MARIA TERESA Administration Latanoprost 1 drop 05/23/17 22:00 Xalatan 0.005% Eye Drops - OU HS MARIA TERESA Mupirocin 1 applic 05/23/17 10:00 05/23/17 10:51 Bactroban Ointment (For Decolonization) - NS 05/28/17 09:59 1 applic BID MARIA TERESA Administration Pilocarpine HCl 1 drop 05/23/17 06:00 Pilostat 4% - OS TID MARIA TERESA Rosuvastatin Calcium 5 mg 05/23/17 22:00 Crestor - PO HS MARIA TERESA Timolol Maleate 1 drop 05/23/17 10:00 05/23/17 10:51 Timoptic 0.5% OU 1 drop BID MARIA TERESA Administration ASSESSMENT/PLAN: 81 y/o old F with a PMH likely aortic stenosis, HTN, HLD, L Breast CA 2005 (s/p radiation, and chemo pill for 5 yrs after), who presents to the ED c/o chest discomfort over the past day. Pt admitted to ICU for further monitoring of [facility] bradycardia. #Junctional bradycardia, resolved -Holding BP meds -Trops 0.13 x 3 -Cardio consult: Dr. Cm -Atropine 0.4 mg IVP q6h if symptomatic -transcutaneous pacing if necessary to maintain HR >60 -Telemetry monitoring -F/u Echo, TSH #HTN -Currently holding BP meds d/t bradycardia including:-- WILL DC DILT AND ATENOLOL PER CARDIOLOGY -Amlodipine/valsartan 10-160mg PO qd -Atenolol 50mg PO qd -Diltiazem 240 mg PO qd -HCTZ 25mg PO qd #ESPERANZA, likely prerenal vs medication induced -Gentle hydration IV NS 75 cc/hr -renal sono- small right and left kidney--no hydro and stones -F/u urine lytes, Uosm, sOsm -Holding home BP meds #HLD -Continue crestor 5mg PO qd #Hx L breast CA -Currently without complaint -Continue outpatient f/u #F/E/N -IV NS 75 cc/hr gentle hydration -Serial lytes -Sodium controlled diet #PPX -DVT: Hep SQ 5000 BID #Dispo -Transfer to telemetry Visit type - Emergency Visit Emergency Visit: Yes ED Registration Date: 05/22/17 Care time: The patient presented to the Emergency Department on the above date and was hospitalized for further evaluation of their emergent condition. - New Patient This patient is new to me today: Yes Date on this admission: 05/23/17 - Critical Care Critical Care patient: Yes Total Critical Care Time (in minutes): 40 Critical Care Statement: The care of this patient involved high complexity decision making to prevent further life threatening deterioration of the patient 's condition and/or to evaluate & treat vital organ system(s) failure or risk of failure.
--- NOTE | 2017-05-23 14:10 | EKG ---
Test Reason : Blood Pressure : / mmHG Vent. Rate : 032 BPM Atrial Rate : 034 BPM P-R Int : 000 ms QRS Dur : 072 ms QT Int : 476 ms P-R-T Axes : 000 007 238 degrees QTc Int : 347 ms POOR DATA QUALITY, INTERPRETATION MAY BE ADVERSELY AFFECTED JUNCTIONAL BRADYCARDIA MINIMAL VOLTAGE CRITERIA FOR LVH, MAY BE NORMAL VARIANT ABNORMAL ECG WHEN COMPARED WITH ECG OF 04-APR-2015 23:38, JUNCTIONAL RHYTHM HAS REPLACED SINUS RHYTHM VENT. RATE HAS DECREASED BY 23 BPM INVERTED T WAVES HAVE REPLACED NONSPECIFIC T WAVE ABNORMALITY IN LATERAL LEADS QT HAS LENGTHENED Confirmed by ALEKSANDAR MORRIS, MIGUEL ([id number]) on 05/23/2017 2:10:15 PM Referred By: Confirmed By:MIGUEL HUERTAS MD
--- NOTE | 2017-05-23 14:28 | PN ---
Physical Exam: SUBJECTIVE: Ms. Aguirre reports resolution of her chest pain and that she feels like her normal self. OBJECTIVE: Vital Signs Period Temp Pulse Resp BP Sys/Camacho Pulse Ox Last 24 Hr 97.6 F-98.0 F 32-76 14-19 111-144/41-69 98-100 GENERAL: The patient is awake, alert, and fully oriented, in no acute distress. HEAD: Normal with no signs of trauma. EYES: PERRL, extraocular movements intact, sclera anicteric, conjunctiva clear. No ptosis. ENT: Ears normal, nares patent, oropharynx clear without exudates, moist mucous membranes. NECK: Trachea midline, full range of motion, supple. LUNGS: Breath sounds equal, clear to auscultation bilaterally, no wheezes, no crackles, no accessory muscle use. HEART: Regular rate and rhythm, S1, S2 without murmur, rub or gallop. ABDOMEN: Soft, nontender, nondistended, normoactive bowel sounds, no guarding, no rebound, no hepatosplenomegaly, no masses. EXTREMITIES: 2+ pulses, warm, well-perfused, no edema. NEUROLOGICAL: Cranial nerves II through XII grossly intact. Normal speech, gait not observed. PSYCH: Normal mood, normal affect. SKIN: Warm, dry, normal turgor, no rashes or lesions noted Laboratory Results - last 24 hr 05/22/17 05/22/17 05/22/17 21:51 21:51 21:51 WBC 9.2 RBC 3.54 L Hgb 11.7 Hct 34.1 MCV 96.1 H MCH 32.9 MCHC 34.2 RDW 13.0 Plt Count 195 MPV 10.0 Neutrophils % 71.5 Lymphocytes % 19.7 D Monocytes % 7.4 Eosinophils % 0.9 D Basophils % 0.5 PT with INR 12.10 H INR 1.07 Sodium 138 Potassium 5.0 Chloride 102 Carbon Dioxide 26 Anion Gap 10 BUN 48 H Creatinine 3.0 H Creat Clearance w eGFR 14.98 Random Glucose 158 H Serum Osmolality Calcium 8.6 Phosphorus Magnesium 2.9 H Total Bilirubin 0.2 D AST 98 H ALT 95 H Alkaline Phosphatase 93 Creatine Kinase 46 Troponin I 0.13 H Total Protein 7.5 Albumin 3.1 L Blood Type Antibody Screen 05/22/17 05/23/17 05/23/17 21:51 05:00 05:15 WBC 8.7 RBC 3.49 L Hgb 11.6 Hct 33.4 MCV 95.6 MCH 33.2 MCHC 34.8 RDW 12.6 Plt Count 155 D MPV 11.3 H D Neutrophils % 72.1 Lymphocytes % 20.7 Monocytes % 6.5 Eosinophils % 0.2 Basophils % 0.5 PT with INR INR Sodium Potassium Chloride Carbon Dioxide Anion Gap BUN Creatinine Creat Clearance w eGFR Random Glucose Serum Osmolality Calcium Phosphorus Magnesium Total Bilirubin AST ALT Alkaline Phosphatase Creatine Kinase Troponin I 0.13 H Total Protein Albumin Blood Type B NEGATIVE Antibody Screen Negative 05/23/17 05/23/17 05/23/17 05:15 05:15 05:15 WBC RBC Hgb Hct MCV MCH MCHC RDW Plt Count MPV Neutrophils % Lymphocytes % Monocytes % Eosinophils % Basophils % PT with INR 11.90 H INR 1.05 Sodium 140 Potassium 4.3 Chloride 104 Carbon Dioxide 26 Anion Gap 10 BUN 48 H Creatinine 2.4 H Creat Clearance w eGFR Random Glucose 90 Serum Osmolality 301 Calcium 8.9 Phosphorus 4.5 Magnesium 2.9 H Total Bilirubin AST ALT Alkaline Phosphatase Creatine Kinase Troponin I Total Protein Albumin Blood Type Antibody Screen 05/23/17 11:15 WBC RBC Hgb Hct MCV MCH MCHC RDW Plt Count MPV Neutrophils % Lymphocytes % Monocytes % Eosinophils % Basophils % PT with INR INR Sodium Potassium Chloride Carbon Dioxide Anion Gap BUN Creatinine Creat Clearance w eGFR Random Glucose Serum Osmolality Calcium Phosphorus Magnesium Total Bilirubin AST ALT Alkaline Phosphatase Creatine Kinase Troponin I 0.13 H Total Protein Albumin Blood Type Antibody Screen Active Medications Generic Name Dose Route Start Last Admin Trade Name Freq PRN Reason Stop Dose Admin Atropine Sulfate 0.4 mg 05/23/17 01:58 Atropine Injection - IVPUSH Q6H PRN MAP<65mm Hg OR SBP <90 Brimonidine Tartrate 1 drop 05/23/17 10:00 05/23/17 10:52 Alphagan 0.2% - OU 1 drop BID MARIA TERESA Administration Chlorhexidine Gluconate 1 applic 05/23/17 22:00 Hibiclens For Decolonization - TP HS MARIA TERESA Heparin Sodium (Porcine) 5,000 unit 05/23/17 10:00 05/23/17 10:49 Heparin - SQ 5,000 unit BID MARIA TERESA Administration Sodium Chloride 1,000 mls @ 75 mls/hr 05/23/17 01:30 05/23/17 02:00 Normal Saline - IV 75 mls/hr ASDIR MARIA TERESA Administration Latanoprost 1 drop 05/23/17 22:00 Xalatan 0.005% Eye Drops - OU HS MARIA TERESA Mupirocin 1 applic 05/23/17 10:00 05/23/17 10:51 Bactroban Ointment (For Decolonization) - NS 05/28/17 09:59 1 applic BID MARIA TERESA Administration Pilocarpine HCl 1 drop 05/23/17 06:00 Pilostat 4% - OS TID MARIA TERESA Rosuvastatin Calcium 5 mg 05/23/17 22:00 Crestor - PO HS MARIA TERESA Timolol Maleate 1 drop 05/23/17 10:00 05/23/17 10:51 Timoptic 0.5% OU 1 drop BID MARIA TERESA Administration ASSESSMENT/PLAN: Ms. Aguirre is an 81 yo female w/ pmh of aortic stenosis, HTN, HLD, Breast Cancer (s/p radiation on left side and chemo for 5 years) who presents with chest discomfort to ICU with associated bradycardia after beginning beta jeb recently. Patient reporting resolution of symptoms this AM and bradycardia now resolved. Bradycardia - Resolved this AM - Holding Beta Jeb - Trended troponins value 0.13 for all 3 - Dr. Cm consulted - Transcutaneous pacing if necessary - Telemetry monitoring - Echo, TSH pending HTN - Holding home meds with bradycardia ESPERANZA - Prerenal picture with BUN/Cr 48/2.4 (08/03) today - NS for protection FEN - 75 mL/hr NS - Replete electrolytes PRN - Sodium controlled diet PPX - SQH Disposition: Transfer to telemetry for further care. Visit type - Emergency Visit Emergency Visit: Yes ED Registration Date: 05/22/17 Care time: The patient presented to the Emergency Department on the above date and was hospitalized for further evaluation of their emergent condition. - New Patient This patient is new to me today: Yes Date on this admission: 05/23/17 - Critical Care Critical Care patient: Yes Total Critical Care Time (in minutes): 35 Critical Care Statement: The care of this patient involved high complexity decision making to prevent further life threatening deterioration of the patient 's condition and/or to evaluate & treat vital organ system(s) failure or risk of failure.
--- NOTE | 2017-05-23 14:38 | PN ---
Teaching Attending Note Name of Resident: Tono Noriega ATTENDING PHYSICIAN STATEMENT I saw and evaluated the patient. I reviewed the resident's note and discussed the case with the resident. I agree with the resident's findings and plan as documented. SUBJECTIVE: Patient has no complaints. She is sitting in a chair. She denies CP , SOB. OBJECTIVE: Vital Signs Period Temp Pulse Resp BP Sys/Camacho Pulse Ox Last 24 Hr 97.6 F-98.0 F 32-76 14-19 111-144/41-69 98-100 HEART: S1S2, RRR, (+) 3/6 SM LUNGS: Clear ABDOMEN: Soft, non-tender, non-distended, normal BS EXTREMITIES: No edema Laboratory Results - last 24 hr 05/22/17 05/22/17 05/22/17 21:51 21:51 21:51 WBC 9.2 RBC 3.54 L Hgb 11.7 Hct 34.1 MCV 96.1 H MCH 32.9 MCHC 34.2 RDW 13.0 Plt Count 195 MPV 10.0 Neutrophils % 71.5 Lymphocytes % 19.7 D Monocytes % 7.4 Eosinophils % 0.9 D Basophils % 0.5 PT with INR 12.10 H INR 1.07 Sodium 138 Potassium 5.0 Chloride 102 Carbon Dioxide 26 Anion Gap 10 BUN 48 H Creatinine 3.0 H Creat Clearance w eGFR 14.98 Random Glucose 158 H Serum Osmolality Calcium 8.6 Phosphorus Magnesium 2.9 H Total Bilirubin 0.2 D AST 98 H ALT 95 H Alkaline Phosphatase 93 Creatine Kinase 46 Troponin I 0.13 H Total Protein 7.5 Albumin 3.1 L Blood Type Antibody Screen 05/22/17 05/23/17 05/23/17 21:51 05:00 05:15 WBC 8.7 RBC 3.49 L Hgb 11.6 Hct 33.4 MCV 95.6 MCH 33.2 MCHC 34.8 RDW 12.6 Plt Count 155 D MPV 11.3 H D Neutrophils % 72.1 Lymphocytes % 20.7 Monocytes % 6.5 Eosinophils % 0.2 Basophils % 0.5 PT with INR INR Sodium Potassium Chloride Carbon Dioxide Anion Gap BUN Creatinine Creat Clearance w eGFR Random Glucose Serum Osmolality Calcium Phosphorus Magnesium Total Bilirubin AST ALT Alkaline Phosphatase Creatine Kinase Troponin I 0.13 H Total Protein Albumin Blood Type B NEGATIVE Antibody Screen Negative 05/23/17 05/23/1718 05:15 05:15 05:15 WBC RBC Hgb Hct MCV MCH MCHC RDW Plt Count MPV Neutrophils % Lymphocytes % Monocytes % Eosinophils % Basophils % PT with INR 11.90 H INR 1.05 Sodium 140 Potassium 4.3 Chloride 104 Carbon Dioxide 26 Anion Gap 10 BUN 48 H Creatinine 2.4 H Creat Clearance w eGFR Random Glucose 90 Serum Osmolality 301 Calcium 8.9 Phosphorus 4.5 Magnesium 2.9 H Total Bilirubin AST ALT Alkaline Phosphatase Creatine Kinase Troponin I Total Protein Albumin Blood Type Antibody Screen 05/23/17 11:15 WBC RBC Hgb Hct MCV MCH MCHC RDW Plt Count MPV Neutrophils % Lymphocytes % Monocytes % Eosinophils % Basophils % PT with INR INR Sodium Potassium Chloride Carbon Dioxide Anion Gap BUN Creatinine Creat Clearance w eGFR Random Glucose Serum Osmolality Calcium Phosphorus Magnesium Total Bilirubin AST ALT Alkaline Phosphatase Creatine Kinase Troponin I 0.13 H Total Protein Albumin Blood Type Antibody Screen Current Medications Generic Name Dose Route Start Last Admin Trade Name Freq PRN Reason Stop Dose Admin Atropine Sulfate 0.4 mg 05/23/17 01:58 Atropine Injection - IVPUSH Q6H PRN MAP<65mm Hg OR SBP <90 Brimonidine Tartrate 1 drop 05/23/17 10:00 05/23/17 10:52 Alphagan 0.2% - OU 1 drop BID MARIA TERESA Administration Chlorhexidine Gluconate 1 applic 05/23/17 22:00 Hibiclens For Decolonization - TP HS MARIA TERESA Heparin Sodium (Porcine) 5,000 unit 05/23/17 10:00 05/23/17 10:49 Heparin - SQ 5,000 unit BID MARIA TERESA Administration Sodium Chloride 1,000 mls @ 75 mls/hr 05/23/17 01:30 05/23/17 02:00 Normal Saline - IV 75 mls/hr ASDIR MARIA TERESA Administration Latanoprost 1 drop 05/23/17 22:00 Xalatan 0.005% Eye Drops - OU HS MARIA TERESA Mupirocin 1 applic 05/23/17 10:00 05/23/17 10:51 Bactroban Ointment (For Decolonization) - NS 05/28/17 09:59 1 applic BID MARIA TERESA Administration Pilocarpine HCl 1 drop 05/23/17 06:00 Pilostat 4% - OS TID MARIA TERESA Rosuvastatin Calcium 5 mg 04/06/18 22:00 Crestor - PO HS MARIA TERESA Timolol Maleate 1 drop 05/23/17 10:00 05/23/17 10:51 Timoptic 0.5% OU 1 drop BID MARIA TERESA Administration ASSESSMENT AND PLAN: This is an 81 year old woman with a history of HTN, hyperlipidemia, breast cancer who presented to the ED with chest discomfort. 1. Junctional bradycardia - Improved - Atenolol, Cardizem CD held 2. Acute kidney injury - Improving - Renal US shows small kidneys - Diovan, HCTZ held - Continue IV fluid 3. Chest pain - Likely secondary to bradycardia 4. Probable demand ischemia - Check echo 5. Probable aortic stenosis - Check echo 6. HTN - Currently on no medications - Diovan, Norvasc, Cardizem CD, HCTZ held secondary to bradycardia, ESPERANZA 7. Hyperlipidemia - Continue Crestor 8. History of breast cancer
[2017-05-23] MEDS: SODIUM CHLORIDE 1,000 ML IV SCH (20:00)
[2017-05-23] MEDS: HEPARIN NA (PORCINE) 5,000 UNITS/ML 1ML VIAL SQ SCH (21:12)
[2017-05-23] MEDS: PILOCARPINE 4% OS SCH (21:13)
[2017-05-23] MEDS: BRIMONIDINE TARTRATE 0.2% OPHTHALMIC 5 ML BOTTLE OU SCH (21:14)
[2017-05-23] MEDS: TIMOLOL 0.5% OPHTHALMIC SOL 5 ML BOTTLE OU SCH (21:14)
[2017-05-23] MEDS: LATANOPROST 0.005% OPHTH SOLN 2.5ML BOTTLE OU SCH (21:15)
[2017-05-23] MEDS ORDERED: PATIENT'S OWN MEDICATION (NON-FORMULARY) (Bimatoprost [Lumigan] 1 DROP) OU SCH (22:00)
[2017-05-23] MEDS ORDERED: ROSUVASTATIN CA 5 MG TABLET (FP) PO SCH (22:00)
[2017-05-23] MEDS ORDERED: CHLORHEXIDINE GLUCONATE 4% CLEANSER FOR DECOLONIZATION TP SCH (22:00)
[2017-05-23] MEDS ORDERED: LATANOPROST 0.005% OPHTH SOLN 2.5ML BOTTLE OU SCH (22:00)
[2017-05-23] MEDS: ROSUVASTATIN CA 5 MG TABLET (FP) PO SCH (22:01)
[2017-05-24] MEDS: PILOCARPINE 4% OS SCH ×4 (06:08→21:18)
[2017-05-24 07:04] LABS: ALBUMIN 2.9 g/dl (3.4-5.0); ANION GAP 9 (8-16); BILIRUBIN,TOTAL 0.3 mg/dL (0.2-1.0); BLOOD UREA NITROGEN 37 mg/dL (7-18); CALCIUM 8.2 mg/dL (8.5-10.1); CHLORIDE 108 mmol/L (98-107); CO2 26 mmol/L (21-32); GLUCOSE,RANDOM 73 mg/dL (74-106); POTASSIUM 4.3 mmol/L (3.5-5.1); SODIUM 143 mmol/L (136-145)
[2017-05-24 07:49] LABS: ALK PHOS 88 U/L (45-117)
[2017-05-24 09:11] LABS: CREATININE 1.6 mg/dL (0.55-1.02); SGOT/AST 44 U/L (15-37); SGPT/ALT 71 U/L (12-78); TOT PROT 6.5 g/dl (6.4-8.2)
[2017-05-24] MEDS ORDERED: PT OWN MED DRAWER 7, Y5N ONE ×2 (09:11→20:52)
[2017-05-24] MEDS: HEPARIN NA (PORCINE) 5,000 UNITS/ML 1ML VIAL SQ SCH ×2 (09:29→21:18)
[2017-05-24] MEDS: TIMOLOL 0.5% OPHTHALMIC SOL 5 ML BOTTLE OU SCH ×2 (09:30→21:18)
[2017-05-24] MEDS: BRIMONIDINE TARTRATE 0.2% OPHTHALMIC 5 ML BOTTLE OU SCH ×2 (09:31→21:17)
--- NOTE | 2017-05-24 10:07 | PN ---
Teaching Attending Note Name of Resident: Tono Noriega ATTENDING PHYSICIAN STATEMENT I saw and evaluated the patient. I reviewed the resident's note and discussed the case with the resident. I agree with the resident's findings and plan as documented. SUBJECTIVE: Patient has no complaints. OBJECTIVE: Vital Signs Period Temp Pulse Resp BP Sys/Camacho Pulse Ox Last 24 Hr 98.1 F-98.5 F 52-68 12-20 98-134/42-52 100-100 HEART: S1S2, RRR, (+) 3/6 SM LUNGS: Clear ABDOMEN: Obese, soft, non-tender, non-distended, normal BS EXTREMITIES: No edema Laboratory Results - last 24 hr 05/23/17 05/24/17 11:15 05:45 Sodium 143 Potassium 4.3 Chloride 108 H Carbon Dioxide 26 Anion Gap 9 BUN 37 H Creatinine 1.6 H Creat Clearance w eGFR 30.94 Random Glucose 73 L Calcium 8.2 L Total Bilirubin 0.3 D AST 44 H ALT 71 Alkaline Phosphatase 88 Creatine Kinase 54 Troponin I 0.13 H 0.13 H Total Protein 6.5 Albumin 2.9 L TSH 1.21 Current Medications Generic Name Dose Route Start Last Admin Trade Name Freq PRN Reason Stop Dose Admin Atropine Sulfate 0.4 mg 05/23/17 19:35 Atropine Injection - IVPUSH Q6H PRN MAP<65mm Hg OR SBP <90 Brimonidine Tartrate 1 drop 05/23/17 22:00 05/24/17 09:31 Alphagan 0.2% - OU 1 drop BID MARIA TERESA Administration Heparin Sodium (Porcine) 5,000 unit 05/23/17 22:00 05/24/17 09:29 Heparin - SQ 5,000 unit BID MARIA TERESA Administration Sodium Chloride 1,000 mls @ 75 mls/hr 05/23/17 19:35 05/23/17 20:00 Normal Saline - IV 75 mls/hr ASDIR MARIA TERESA Administration Latanoprost 1 drop 05/23/17 22:00 05/23/17 21:15 Xalatan 0.005% Eye Drops - OU 1 drop HS MARIA TERESA Administration Pilocarpine HCl 1 drop 05/23/17 22:00 05/24/17 06:08 Pilostat 4% - OS 1 drop TID MARIA TERESA Administration Rosuvastatin Calcium 5 mg 05/23/17 22:00 05/23/17 22:01 Crestor - PO 5 mg HS MARIA TERESA Administration Timolol Maleate 1 drop 05/23/17 22:00 05/24/17 09:30 Timoptic 0.5% OU 1 drop BID MARIA TERESA Administration ASSESSMENT AND PLAN: This is an 81 year old woman with a history of HTN, hyperlipidemia, breast cancer who presented to the ED with chest discomfort. 1. Junctional bradycardia - Improved - Atenolol, Cardizem CD discontinued 2. Acute kidney injury - Improved - Renal US shows small kidneys - Diovan, HCTZ held 3. Stage 3 CKD 4. Chest pain - Likely secondary to bradycardia 5. Probable demand ischemia 6. Severe aortic regurgitation - Cardiology follow up 6. HTN - Currently on no medications - Diovan, Norvasc, Cardizem CD, HCTZ held secondary to bradycardia, ESPERANZA 7. Hyperlipidemia - Continue Crestor 8. History of breast cancer
--- NOTE | 2017-05-24 15:39 | PN ---
Progress Note (short form) - Note Progress Note: cc: cp S: no further chest heaviness. Feels well, no sob, palps, dizziness. Current Medications Atropine Sulfate (Atropine Injection -) 0.4 mg IVPUSH Q6H PRN PRN Reason: MAP<65mm Hg OR SBP <90 Brimonidine Tartrate (Alphagan 0.2% -) 1 drop OU BID [facility] Last Admin: 05/24/17 21:17 Dose: 1 drop Heparin Sodium (Porcine) (Heparin -) 5,000 unit SQ BID [facility] Last Admin: 05/24/17 21:18 Dose: 5,000 unit Sodium Chloride (Normal Saline -) 1,000 mls @ 75 mls/hr IV ASDIR [facility] Last Admin: 05/24/17 21:17 Dose: 75 mls/hr Latanoprost (Xalatan 0.005% Eye Drops -) 1 drop OU HS [facility] Last Admin: 05/24/17 21:19 Dose: 1 drop Pilocarpine HCl (Pilostat 4% -) 1 drop OS TID [facility] Last Admin: 05/24/17 21:18 Dose: 1 drop Rosuvastatin Calcium (Crestor -) 5 mg PO HS [facility] Last Admin: 05/24/17 21:18 Dose: 5 mg Timolol Maleate (Timoptic 0.5%) 1 drop OU BID [facility] Last Admin: 05/24/17 21:18 Dose: 1 drop pe: Vital Signs - 24 hr 05/24/17 05/24/17 05/24/17 00:22 02:05 04:00 Temperature 98.3 F Pulse Rate 52 L 54 L 54 L Respiratory 13 15 14 Rate Blood Pressure 100/46 98/42 116/50 O2 Sat by Pulse Oximetry (%) 05/24/17 05/24/17 05/24/17 06:15 10:00 14:00 Temperature 98.5 F 98.7 F 97.8 F Pulse Rate 55 L 57 L 56 L Respiratory 15 16 18 Rate Blood Pressure 100/46 115/56 133/57 O2 Sat by Pulse 98 Oximetry (%) Intake & Output 05/22/17 05/23/17 05/24/17 05/25/17 07:59 07:59 07:59 07:59 Intake Total 300 0 920 Output Total 400 Balance -100 2049 920 Weight 146 lb 5 oz nad no jvd rrr s1s2 no r/g, 2/6 sys murmur at sternal border cta bl nl eff no le e/c/c abd nt nd pos bs no jaundice diaphoresis +dp pt no carotid bruits aa0x3 CBC, BMP 05/23/17 05:15 05/24/17 05:45 Laboratory Tests 05/22/17 05/23/17 05/23/17 21:51 05:00 05:15 Creatinine 3.0 H 2.4 H Magnesium 2.9 H Total Bilirubin AST 98 H ALT Alkaline Phosphatase Creatine Kinase 46 Troponin I 0.13 H 0.13 H Albumin TSH 05/23/17 05/24/17 11:15 05:45 Creatinine Magnesium Total Bilirubin 0.3 D AST 44 H ALT 71 Alkaline Phosphatase 88 Creatine Kinase 54 Troponin I 0.13 H 0.13 H Albumin 2.9 L TSH 1.21 initial ecg: sinus arrest with junctional escape in 30s repeat ecg: sr, nl intervals, nonspec st-t changes tele: sr/sb 50's-70's echo 05/2017: nl lv size/fn. tds for rwma. rv not well seen. cannot assess . severe AR (suboptimal study, would recommend confirmation on repeat echo). - OF NOTE: Discussed with patient. She had a recent echo last month with her outpatient drilling contractor. + , no sig AR. Since this echo tds, would defer to last months echo with her outpatient drilling contractor for accurate assessment of valve. cxr: clear lungs a/p: 81 f hx htn (on atenolol and dilt), hld, , Lt breast ca s/p xrt here with cp and found to be in sinus arrest with junctional escape in 30s (hemodynamically stable). bradycardia: -pt presented with sinus arrest and junctional escape rhythm in 30s -likely related to her home meds of both atenolol and dilt, along with ESPERANZA and underlying conduction abnormalities (baseline hr in the 50's) -after holding meds, now back to baseline (SR/SB 50's-70's) - tsh wnl -avoid further use of meds that cause bradycardia -echo with grossly nl systolic function. cp: -atypical, resolved since HR's improved. CE's stable at 0.13 x 4. Repeat ekg ( in SR) without acute ischemic changes. no signs acs. intermediate trop elevation likely 2/2 demand in setting of HR in the 30's. - con't crestor. Patient was on ASA as outpatient, will resume. /AR - suboptimal images on echo. AR reported as severe and unable to assess severity of . Patient states she had recent echo assessment of aortic valve last month with her outpatient drilling contractor --> was told AV was narrow, but not signficantly leaky. Since echo here tds, would defer to patient's outpatient echo for AV findings. esperanza on ckd: -improving s/p IVF and normalization of heart rate. htn: -dc's home dilt and atenolol as above -bp ok now. if needed would resume home norvasc. hold home arb 2/2 esperanza and chlorthalidone while on IVF. stable from CV perspective.
--- NOTE | 2017-05-24 18:34 | PN ---
Physical Exam: SUBJECTIVE: Patient seen and examined No acute events overnight. Patient feels well this AM. In normal sinus rhtyhm. Denies chest pain, shortness of breath, or any palpitations. OBJECTIVE: Vital Signs Period Temp Pulse Resp BP Sys/Camacho Pulse Ox Last 24 Hr 97.8 F-98.7 F 52-82 12-20 98-138/42-63 98-100 GENERAL: The patient is awake, alert, and fully oriented, in no acute distress. HEAD: Normal with no signs of trauma. EYES: PERRL, extraocular movements intact, sclera anicteric, conjunctiva clear. No ptosis. ENT: Oropharynx clear without exudates, dry mucous membranes. NECK: Trachea midline, full range of motion, supple. LUNGS: Breath sounds equal, clear to auscultation bilaterally, no wheezes, no crackles, no accessory muscle use. HEART: Regular rate and rhythm, S1, S2 +Murmur 3/6 ABDOMEN: Soft, nontender, nondistended, normoactive bowel sounds, no guarding, no rebound, no hepatosplenomegaly, no masses. EXTREMITIES: 2+ pulses, warm, well-perfused, no edema. NEUROLOGICAL: Cranial nerves II through XII grossly intact. Normal speech, gait not observed. PSYCH: Normal mood, normal affect. SKIN: Warm, dry, normal turgor, no rashes or lesions noted Laboratory Results - last 24 hr 05/23/17 05/23/17 05/23/17 06:00 11:15 12:00 Sodium Potassium Chloride Carbon Dioxide Anion Gap BUN Creatinine Creat Clearance w eGFR Random Glucose Calcium Total Bilirubin AST ALT Alkaline Phosphatase Creatine Kinase Troponin I Total Protein Albumin TSH 1.21 Urine Osmolality 261 L Ur Random Sodium 50 Ur Random Potassium 15.0 Ur Random Chloride 43 05/24/17 05:45 Sodium 143 Potassium 4.3 Chloride 108 H Carbon Dioxide 26 Anion Gap 9 BUN 37 H Creatinine 1.6 H Creat Clearance w eGFR 30.94 Random Glucose 73 L Calcium 8.2 L Total Bilirubin 0.3 D AST 44 H ALT 71 Alkaline Phosphatase 88 Creatine Kinase 54 Troponin I 0.13 H Total Protein 6.5 Albumin 2.9 L TSH Urine Osmolality Ur Random Sodium Ur Random Potassium Ur Random Chloride Active Medications Generic Name Dose Route Start Last Admin Trade Name Freq PRN Reason Stop Dose Admin Atropine Sulfate 0.4 mg 05/23/17 19:35 Atropine Injection - IVPUSH Q6H PRN MAP<65mm Hg OR SBP <90 Brimonidine Tartrate 1 drop 05/23/17 22:00 05/24/17 09:31 Alphagan 0.2% - OU 1 drop BID MARIA TERESA Administration Heparin Sodium (Porcine) 5,000 unit 05/23/17 22:00 05/24/17 09:29 Heparin - SQ 5,000 unit BID MARIA TERESA Administration Sodium Chloride 1,000 mls @ 75 mls/hr 05/23/17 19:35 05/23/17 20:00 Normal Saline - IV 75 mls/hr ASDIR MARIA TERESA Administration Latanoprost 1 drop 05/23/17 22:00 05/23/17 21:15 Xalatan 0.005% Eye Drops - OU 1 drop HS MARIA TERESA Administration Pilocarpine HCl 1 drop 05/23/17 22:00 05/24/17 15:00 Pilostat 4% - OS 1 drop TID MARIA TERESA Administration Rosuvastatin Calcium 5 mg 05/23/17 22:00 05/23/17 22:01 Crestor - PO 5 mg HS MARIA TERESA Administration Timolol Maleate 1 drop 05/23/17 22:00 05/24/17 09:30 Timoptic 0.5% OU 1 drop BID MARIA TERESA Administration ASSESSMENT/PLAN: 81 y/o old F with a PMH likely aortic stenosis, HTN, HLD, L Breast CA 2005 (s/p radiation, and chemo pill for 5 yrs after), who presents to the ED c/o chest discomfort over the past day. Pt admitted to ICU for further monitoring of jnc bradycardia. #Junctional bradycardia, resolved -Holding BP meds -Trops 0.13 x 3 -Cardio consult: Dr. Cm -Atropine 0.4 mg IVP q6h if symptomatic -transcutaneous pacing if necessary to maintain HR >60 -Telemetry monitoring -Echo: severe AR -Will monitor 1 more night #HTN -Currently holding BP meds d/t bradycardia including:-- WILL DC DILT AND ATENOLOL PER CARDIOLOGY -Amlodipine/valsartan 10-160mg PO qd -Atenolol 50mg PO qd -Diltiazem 240 mg PO qd -Chlorthalidone #ESPERANZA, likely prerenal vs medication induced, resolving -Gentle hydration IV NS 75 cc/hr -renal sono- small right and left kidney--no hydro and stones -Holding home BP meds #HLD -Continue crestor 5mg PO qd #Hx L breast CA -Currently without complaint -Continue outpatient f/u #F/E/N -IV NS 75 cc/hr gentle hydration -Serial lytes -Sodium controlled diet #PPX -DVT: Hep SQ 5000 BID #Dispo -Tele Visit type - Emergency Visit Emergency Visit: Yes ED Registration Date: 05/22/17 Care time: The patient presented to the Emergency Department on the above date and was hospitalized for further evaluation of their emergent condition. - New Patient This patient is new to me today: No - Critical Care Critical Care patient: No
[2017-05-24] MEDS: SODIUM CHLORIDE 1,000 ML IV SCH (21:17)
[2017-05-24] MEDS: ROSUVASTATIN CA 5 MG TABLET (FP) PO SCH (21:18)
[2017-05-24] MEDS: LATANOPROST 0.005% OPHTH SOLN 2.5ML BOTTLE OU SCH (21:19)
[2017-05-25 06:34] LABS: ANION GAP 11 (8-16); BLOOD UREA NITROGEN 26 mg/dL (7-18); CALCIUM 8.2 mg/dL (8.5-10.1); CHLORIDE 110 mmol/L (98-107); CO2 24 mmol/L (21-32); GLUCOSE,RANDOM 70 mg/dL (74-106); SODIUM 145 mmol/L (136-145)
[2017-05-25 06:36] LABS: CREATININE 1.2 mg/dL (0.55-1.02)
[2017-05-25] MEDS: PILOCARPINE 4% OS SCH (08:08)
[2017-05-25] MEDS ORDERED: PT OWN MED DRAWER 7, Y5N ONE (09:45)
[2017-05-25] MEDS: BRIMONIDINE TARTRATE 0.2% OPHTHALMIC 5 ML BOTTLE OU SCH (09:50)
[2017-05-25] MEDS: TIMOLOL 0.5% OPHTHALMIC SOL 5 ML BOTTLE OU SCH (09:50)
[2017-05-25] MEDS: HEPARIN NA (PORCINE) 5,000 UNITS/ML 1ML VIAL SQ SCH (09:51)
[2017-05-25] MEDS ORDERED: ASPIRIN COATED 81 MG TABLET.EC PO SCH (10:00)
--- NOTE | 2017-05-25 11:09 | PN ---
Progress Note (short form) - Note Progress Note: S: no further chest heaviness. Feels well, no sob, palps, dizziness. Current Medications Generic Name Dose Route Start Last Admin Trade Name Rebecca PRN Reason Stop Dose Admin Aspirin 81 mg 05/25/17 10:00 05/25/17 09:50 Ecotrin - PO 81 mg DAILY MARIA TERESA Administration Atropine Sulfate 0.4 mg 05/23/17 19:35 Atropine Injection - IVPUSH Q6H PRN MAP<65mm Hg OR SBP <90 Brimonidine Tartrate 1 drop 05/23/17 22:00 05/25/17 09:50 Alphagan 0.2% - OU 1 drop BID MARIA TERESA Administration Heparin Sodium (Porcine) 5,000 unit 05/23/17 22:00 05/25/17 09:51 Heparin - SQ 5,000 unit BID MARIA TERESA Administration Sodium Chloride 1,000 mls @ 75 mls/hr 05/23/17 19:35 05/24/17 21:17 Normal Saline - IV 75 mls/hr ASDIR MARIA TERESA Administration Latanoprost 1 drop 05/23/17 22:00 05/24/17 21:19 Xalatan 0.005% Eye Drops - OU 1 drop HS MARIA TERESA Administration Pilocarpine HCl 1 drop 05/23/17 22:00 05/25/17 08:08 Pilostat 4% - OS 1 drop TID MARIA TERESA Administration Rosuvastatin Calcium 5 mg 05/23/17 22:00 05/24/17 21:18 Crestor - PO 5 mg HS MARIA TERESA Administration Timolol Maleate 1 drop 05/23/17 22:00 05/25/17 09:50 Timoptic 0.5% OU 1 drop BID MARIA TERESA Administration pe: Vital Signs Period Temp Pulse Resp BP Sys/Camacho Pulse Ox Last 24 Hr 97.8 F-98.5 F 53-82 15-18 117-138/43-63 98 nad no jvd rrr s1s2 no r/g, 2/6 sys murmur at sternal border cta bl nl eff no le e/c/c abd nt nd pos bs no jaundice diaphoresis aa0x3 CBC, BMP 05/23/17 05:15 05/25/17 05:50 initial ecg: sinus arrest with junctional escape in 30s repeat ecg: sr, nl intervals, nonspec st-t changes tele: sr/sb 50's-70's echo 05/2017: nl lv size/fn. tds for rwma. rv not well seen. cannot assess . severe AR (suboptimal study, would recommend confirmation on repeat echo). - OF NOTE: Discussed with patient. She had a recent echo last month with her outpatient mgmt analyst. + , no sig AR. Since this echo tds, would defer to last months echo with her outpatient mgmt analyst for accurate assessment of valve. cxr: clear lungs a/p: 81 f hx htn (on atenolol and dilt), hld, , Lt breast ca s/p xrt here with cp and found to be in sinus arrest with junctional escape in 30s (hemodynamically stable). bradycardia: -pt presented with sinus arrest and junctional escape rhythm in 30s -likely related to her home meds of both atenolol and dilt, along with STIVEN and underlying conduction abnormalities (baseline hr in the 50's) -after holding meds, now back to baseline (SR/SB 50's-70's) - tsh wnl -avoid further use of meds that cause bradycardia -echo with grossly nl systolic function. cp: -atypical, resolved since HR's improved. CE's stable at 0.13 x 4. Repeat ekg ( in SR) without acute ischemic changes. no signs acs. intermediate trop elevation likely 2/2 demand in setting of HR in the 30's. - con't crestor. Patient was on ASA as outpatient, will resume. /AR - suboptimal images on echo. AR reported as severe and unable to assess severity of . Patient states she had recent echo assessment of aortic valve last month with her outpatient mgmt analyst --> was told AV was narrow, but not signficantly leaky. Since echo here tds, would defer to patient's outpatient echo for AV findings. stiven on ckd: -improving s/p IVF and normalization of heart rate. htn: -dc's home dilt and atenolol as above -bp ok now. if needed would resume home norvasc. hold home arb 2/2 stiven and chlorthalidone stable from CV perspective.
--- NOTE | 2017-05-25 11:30 | DS ---
Physical Exam: SUBJECTIVE: Patient seen and examined. She is awake and alert, sitting in chair. She has no complaints. OBJECTIVE: Vital Signs Period Temp Pulse Resp BP Sys/Camacho Pulse Ox Last 24 Hr 97.8 F-98.5 F 53-82 15-18 117-138/43-63 98 PHYSICAL EXAM GENERAL: The patient is awake, alert, and fully oriented, in no acute distress. LUNGS: Breath sounds equal, clear to auscultation bilaterally, no wheezes, no crackles, no accessory muscle use. HEART: Regular rate and rhythm, S1, S2, (+) 2/6 SM. ABDOMEN: Obese, soft, nontender, nondistended, normoactive bowel sounds, no guarding, no rebound, no hepatosplenomegaly, no masses. EXTREMITIES: 2+ pulses, warm, well-perfused, no edema. LABS Laboratory Results - last 24 hr 05/23/17 05/23/17 05/25/17 06:00 12:00 05:50 Sodium 145 Potassium 4.0 Chloride 110 H Carbon Dioxide 24 Anion Gap 11 BUN 26 H Creatinine 1.2 H Random Glucose 70 L Calcium 8.2 L Urine Osmolality 261 L Ur Random Sodium 50 Ur Random Potassium 15.0 Ur Random Chloride 43 HOSPITAL COURSE: Date of Admission:05/22/17 Date of Discharge: 05/25/17 Minutes to complete discharge: 30 Discharge Summary Reason For Visit: CHEST PAIN Current Active Problems CKD (chronic kidney disease) stage 3, GFR 30-59 ml/min (Chronic) Acute kidney injury (Acute) HLD (hyperlipidemia) (Chronic) HTN (hypertension) (Chronic) Junctional bradycardia (Acute) Chest pain (Acute) Hospital Course: This is an 81 year old woman who presentsed to the ED on 05/23/17 complaining of chest discomfort. She reported having intermittent chest pain with diaphoresis, nausea, and SOB. In the ED she was found to have junctional bradycardia with HR 32. She follows with a air defense control officer in [facility] and reported being told that she has a narrow valve on a recent echocardiogram and that she should have a stress test. Her heart rate improved without intervention. It was noted that she was taking atenolol, diltiazem, and Combigan eye drops. She was admitted to the ICU. Atenolol and diltiazem were discontinued. She was seen by cardiology. Troponin was 0.13 x4. Echocardiogram was technically difficult and showed normal LV, normal LVEF, severe aortic regurgitation, mild aortic sclerosis. Significant aortic stenosis could not be excluded. She had no bradycardia, chest pain, palpitations or SOB while in the hospital. In the ED, she was found to have creatinine 3.0. Valsartan and HCTZ were discontinued. She was treated with IV fluid. Renal ultrasound showed small kidneys. Renal function improved (creatinine is 1.2 on 05/25/17). She is being discharged home on 05/25/17. At the time of discharge, BP is 131/50 and HR is 53. She is advised to remain off atenolol, diltiazem, valsartan, and HCTZ, and to follow up this week with her air defense control officer regarding BP, HR, and the discrepancy in echocardiograms. Condition: Improved - Instructions Diet, Activity, Other Instructions: You were in the hospital due to a slow heart rate. We believe this is likely due to the medications you were taking. Please stop taking all of your home blood pressure medications for now ( Chlorthalidone, atenolol, diltiazam, and amlodipine/valsartan). You may resume your usual diet and activity. Please follow up with your primary care provider and with your air defense control officer within 1 week. If you have chest pain, shortness of breath, or any new/worsening symptoms please come back to the hospital immediately. Referrals: Torey Humphrey MD [Staff Physician] - Florencio Cm MD [Staff Physician] - Disposition: HOME - Home Medications Comprehensive Discharge Medication List: Ambulatory Orders Bimatoprost [Lumigan] 1 drop OU HS 03/07/17 Brimonidine Tartrate/Timolol [Combigan 0.2%-0.5% Eye Drops] 1 drop OU BID [place]-3 Fatty Acids [[place]-3] 1,000 mg PO DAILY 03/07/17 Pilocarpine 4% [Pilostat 4% -] 1 drop OS TID 03/07/17 Folic Acid - 1 mg PO DAILY 05/22/17 Rosuvastatin [Crestor -] 5 mg PO HS 05/22/17 Aspirin Coated [Ecotrin -] 81 mg PO DAILY tablet.ec 05/25/17 Problem List - Problems (1) CKD (chronic kidney disease) stage 3, GFR 30-59 ml/min Code(s): N18.3 - CHRONIC KIDNEY DISEASE, STAGE 3 (MODERATE) (2) Acute kidney injury Code(s): N17.9 - ACUTE KIDNEY FAILURE, UNSPECIFIED This patient is new to me today: No Emergency Visit: Yes ED Registration Date: 05/22/17 Care time: The patient presented to the Emergency Department on the above date and was hospitalized for further evaluation of their emergent condition. Critical Care patient: No - Discharge Referral Referred to [facility] Med [facility] No
[2017-05-25 11:41] VITALS: BP 122/76; PULSE 67; TEMP 98.5
== END 2017-05-25 12:22 | disposition home or self-care (01) | DRG 309 ==
LOC: JER 21:08 → JERBED 23:10 → JICU 05-23 00:18 → J2W 05-23 12:02
PROVIDERS: ADMIT Internal Medicine; ATTEND Internal Medicine
DX: R00.1 Bradycardia, unspecified (principal); N17.9 Acute kidney failure, unspecified; I24.8 Other forms of acute ischemic heart disease; E78.5 Hyperlipidemia, unspecified; I35.0 Nonrheumatic aortic (valve) stenosis; Z85.3 Personal history of malignant neoplasm of breast; R07.89 Other chest pain; R01.1 Cardiac murmur, unspecified; I12.9 Hypertensive chronic kidney disease with stage 1 through stage 4 chronic kidney disease, or unspecified chronic kidney disease; N18.3 Chronic kidney disease, stage 3 (moderate)
CPT/HCPCS: 36415; 71045-TC-FY; 76775-TC; 80048; 80053; 82436; 82550; 83735; 83930; 83935; 84100; 84133; 84300; 84443; 84484; 85025; 85610; 86850; 86900; 86901; 93005; 93010; 93306-TC; 99285-25; J1644; J7030

== ENCOUNTER 2021-07-30 22:10 | Inpatient (IN) | payer OTHER ==
[2021-07-30] MEDS ORDERED: ASPIRIN 81 MG CHEWABLE TABLETS PO ONE (23:23)
[2021-07-30] MEDS ORDERED: ASPIRIN 81 MG CHEWABLE TABLETS ONE (23:35)
[2021-07-31 00:15] LABS: BASO % 0.3 % (0-2.0); EOS % 0.2 % (0-4.5); HEMATOCRIT 36.6 % (32.4-45.2); HEMOGLOBIN 12.3 GM/dL (10.7-15.3); LYMPH % 12.7 % (8-40); MCH 32.3 pg (25.7-33.7); MCHC 33.7 g/dl (32.0-36.0); MEAN CELL VOLUME 95.7 fl (80-96); MEAN PLT VOLUME 10.2 fl (7.5-11.1); MONO % 7.6 % (3.8-10.2); NEUT % 79.2 % (42.8-82.8); PLATELET COUNT 262 10^3/uL (134-434); RBC 3.83 M/mm3 (3.60-5.2); RDW 13.2 % (11.6-15.6); WHITE BLOOD COUNT 10.6 K/mm3 (4.0-10.0)
[2021-07-31 00:34] LABS: CHLORIDE 104 mmol/L (98-107); SODIUM 136 mmol/L (136-145)
[2021-07-31 00:37] LABS: ANION GAP 5 MMOL/L (8-16); CALCIUM 9.6 mg/dL (8.5-10.1); CO2 27 mmol/L (21-32); MAGNESIUM 2.5 mg/dL (1.8-2.4)
[2021-07-31 00:38] LABS: ALBUMIN 3.7 g/dl (3.4-5.0)
[2021-07-31 00:39] LABS: BLOOD UREA NITROGEN 36.4 mg/dL (7-18); GLUCOSE,RANDOM 122 mg/dL (74-106)
[2021-07-31 00:40] LABS: SGOT/AST 62 U/L (15-37)
[2021-07-31 00:41] LABS: CREATININE 1.2 mg/dL (0.55-1.3); SGPT/ALT 62 U/L (13-61)
[2021-07-31 00:42] LABS: TOT PROT 8.7 g/dl (6.4-8.2)
[2021-07-31 00:43] LABS: BILIRUBIN,TOTAL 0.4 mg/dL (0.2-1)
[2021-07-31 00:44] LABS: ALK PHOS 96 U/L (45-117)
[2021-07-31 00:53] LABS: ACTIVATED PTT 27.4 SECONDS (25.2-36.5); INR 0.97 (0.83-1.09); PROTHROMBIN TIME (PATIENT) 11.2 SEC (9.7-13.0)
[2021-07-31] MEDS ORDERED: POLYETHYLENE GLYCOL (HEALTHYLAX) 3350 17 GM PACKET PO PRN (02:42)
[2021-07-31] MEDS ORDERED: ACETAMINOPHEN 325 MG TABLET (FP) PO PRN (02:42)
[2021-07-31 03:38] LABS: BLOOD UREA NITROGEN 33.1 mg/dL (7-18); CALCIUM 9.3 mg/dL (8.5-10.1); MAGNESIUM 2.4 mg/dL (1.8-2.4)
[2021-07-31 03:41] LABS: CREATININE 1.3 mg/dL (0.55-1.3)
[2021-07-31 08:16] LABS: CHOLESTEROL 183 mg/dL (50-200); HDL CHOLESTEROL 88 mg/dL (40-60); LDL CHOLESTEROL (ONLY DFH) 84 mg/dl (5-100); TRIGLYCERIDES 53 mg/dL (0-150)
[2021-07-31] MEDS ORDERED: LOSARTAN POTASSIUM 50 MG TABLET ONE (08:45)
[2021-07-31] MEDS ORDERED: amLODIPine BESYLATE 10 MG TABLET (FP) ONE (08:45)
[2021-07-31] MEDS ORDERED: ENOXAPARIN NA (PORCINE) 40 MG/0.4 ML DISP.SYRIN SQ ONE (08:45)
[2021-07-31] MEDS: LOSARTAN POTASSIUM 50 MG TABLET PO SCH (10:35)
[2021-07-31] MEDS: ENOXAPARIN NA (PORCINE) 40 MG/0.4 ML DISP.SYRIN SQ SCH (10:35)
[2021-07-31] MEDS: amLODIPine BESYLATE 10 MG TABLET (FP) PO SCH (10:35)
[2021-07-31 14:49] LABS: N-TERMINAL BNP 1277.4 pg/ml (5-450)
[2021-07-31] MEDS: PILOCARPINE 4% OS SCH (16:24)
[2021-07-31] MEDS ORDERED: LATANOPROST 0.005% OPHTH SOLN 2.5ML BOTTLE OU SCH (22:00)
[2021-07-31] MEDS ORDERED: ROSUVASTATIN CA 5 MG TABLET PO SCH (22:00)
[2021-08-01] MEDS: PILOCARPINE 4% OS SCH ×3 (02:02→15:22)
[2021-08-01 07:18] LABS: BASO % 0.3 % (0-2.0); EOS % 0.2 % (0-4.5); HEMATOCRIT 33.9 % (32.4-45.2); HEMOGLOBIN 11.5 GM/dL (10.7-15.3); LYMPH % 11.5 % (8-40); MCH 32.3 pg (25.7-33.7); MCHC 33.9 g/dl (32.0-36.0); MEAN CELL VOLUME 95.1 fl (80-96); MEAN PLT VOLUME 9.7 fl (7.5-11.1); MONO % 8.3 % (3.8-10.2); NEUT % 79.7 % (42.8-82.8); PLATELET COUNT 202 10^3/uL (134-434); RBC 3.57 M/mm3 (3.60-5.2); RDW 13.3 % (11.6-15.6); WHITE BLOOD COUNT 8.4 K/mm3 (4.0-10.0)
[2021-08-01] MEDS ORDERED: amLODIPine BESYLATE 10 MG TABLET (FP) ONE (07:36)
[2021-08-01] MEDS ORDERED: ENOXAPARIN NA (PORCINE) 40 MG/0.4 ML DISP.SYRIN SQ ONE (07:36)
[2021-08-01] MEDS ORDERED: LOSARTAN POTASSIUM 50 MG TABLET ONE (07:36)
[2021-08-01 07:41] LABS: ALBUMIN 3.2 g/dl (3.4-5.0); BLOOD UREA NITROGEN 24.9 mg/dL (7-18)
[2021-08-01 07:44] LABS: CREATININE 1.2 mg/dL (0.55-1.3)
[2021-08-01 07:46] LABS: BILIRUBIN,TOTAL 0.5 mg/dL (0.2-1); TOT PROT 7.1 g/dl (6.4-8.2)
[2021-08-01] MEDS: amLODIPine BESYLATE 10 MG TABLET (FP) PO SCH (10:30)
[2021-08-01] MEDS: ENOXAPARIN NA (PORCINE) 40 MG/0.4 ML DISP.SYRIN SQ SCH (10:30)
[2021-08-01] MEDS: LOSARTAN POTASSIUM 50 MG TABLET PO SCH (10:30)
[2021-08-01] MEDS ORDERED: PATIENT'S OWN MEDICATION (NON-FORMULARY) (Brimonidine Tartrate/Timolol [Combigan 0.2%-0.5% OS SCH (12:45)
[2021-08-01 14:38] VITALS: BMI 31.6
[2021-08-01] MEDS ORDERED: ACETAMINOPHEN 325 MG TABLET (FP) PO PRN (15:20)
[2021-08-01] MEDS ORDERED: POLYETHYLENE GLYCOL (HEALTHYLAX) 3350 17 GM PACKET PO PRN (15:20)
[2021-08-01] MEDS: ROSUVASTATIN CA 5 MG TABLET PO SCH (21:48)
[2021-08-01] MEDS: BRIMONIDINE TARTRATE 0.2% OPHTHALMIC 5 ML BOTTLE OS SCH (21:50)
[2021-08-01] MEDS ORDERED: BRIMONIDINE TARTRATE 0.2% OPHTHALMIC 5 ML BOTTLE OS SCH (22:00)
[2021-08-01] MEDS ORDERED: TIMOLOL 0.5% OPHTHALMIC SOL 5 ML BOTTLE OS SCH (22:00)
[2021-08-02] MEDS ORDERED: REGADENOSON 0.4 MG/5 ML PRE-FILLED SYRINGE IVPUSH ONE ×2 (10:58→11:15)
[2021-08-02] MEDS: LOSARTAN POTASSIUM 50 MG TABLET PO SCH (16:42)
[2021-08-02] MEDS: ENOXAPARIN NA (PORCINE) 40 MG/0.4 ML DISP.SYRIN SQ SCH (16:43)
[2021-08-02] MEDS: amLODIPine BESYLATE 10 MG TABLET (FP) PO SCH (16:43)
[2021-08-02] MEDS: BRIMONIDINE TARTRATE 0.2% OPHTHALMIC 5 ML BOTTLE OS SCH ×2 (16:43→22:42)
[2021-08-02] MEDS: ROSUVASTATIN CA 5 MG TABLET PO SCH (22:42)
[2021-08-03 07:03] VITALS: BP 120/51; PULSE 63; TEMP 98.6
[2021-08-03] MEDS: ENOXAPARIN NA (PORCINE) 40 MG/0.4 ML DISP.SYRIN SQ SCH (09:41)
[2021-08-03] MEDS: amLODIPine BESYLATE 10 MG TABLET (FP) PO SCH (09:41)
[2021-08-03] MEDS: BRIMONIDINE TARTRATE 0.2% OPHTHALMIC 5 ML BOTTLE OS SCH (09:41)
[2021-08-03] MEDS: LOSARTAN POTASSIUM 50 MG TABLET PO SCH (09:41)
== END 2021-08-03 11:39 | disposition home or self-care (01) | DRG 313 ==
LOC: JER 22:10 → JERBED 07-31 02:06 → J8W 08-01 14:15
PROVIDERS: ADMIT Hospitalist; ATTEND Internal Medicine
DX: R07.89 Other chest pain (principal); R77.8 Other specified abnormalities of plasma proteins; R01.1 Cardiac murmur, unspecified; E78.5 Hyperlipidemia, unspecified; R00.1 Bradycardia, unspecified; Z85.3 Personal history of malignant neoplasm of breast; I12.9 Hypertensive chronic kidney disease with stage 1 through stage 4 chronic kidney disease, or unspecified chronic kidney disease; N18.30 Chronic kidney disease, stage 3 unspecified; I35.0 Nonrheumatic aortic (valve) stenosis
CPT/HCPCS: 36415; 71045-TC-FY; 78452-TC; 80048; 80053; 80061; 82550; 82962; 83735; 83880; 84484; 85025; 85610; 85730; 93005; 93010; 93017; 93306-TC; 93970-TC; 99285-25; A9502; C9803-CS; J2785; U0003; U0005

== ENCOUNTER 2021-08-21 19:27 | Inpatient (IN) | payer OTHER ==
[2021-08-21 23:29] LABS: BASO % 0.4 % (0-2.0); EOS % 1.2 % (0-4.5); HEMATOCRIT 38.7 % (32.4-45.2); HEMOGLOBIN 13.1 GM/dL (10.7-15.3); LYMPH % 19.6 % (8-40); MCH 32.4 pg (25.7-33.7); MCHC 33.9 g/dl (32.0-36.0); MEAN CELL VOLUME 95.6 fl (80-96); MEAN PLT VOLUME 10.4 fl (7.5-11.1); NEUT % 71.8 % (42.8-82.8); PLATELET COUNT 138 10^3/uL (134-434); RBC 4.05 M/mm3 (3.60-5.2); RDW 12.7 % (11.6-15.6); WHITE BLOOD COUNT 8.6 K/mm3 (4.0-10.0)
[2021-08-21 23:36] LABS: INR 0.98 (0.83-1.09); PROTHROMBIN TIME (PATIENT) 11.3 SEC (9.7-13.0)
[2021-08-21 23:39] LABS: ACTIVATED PTT 21.1 SECONDS (25.2-36.5)
[2021-08-21 23:49] LABS: CHLORIDE 99 mmol/L (98-107); SODIUM 138 mmol/L (136-145)
[2021-08-21 23:52] LABS: ALBUMIN 3.9 g/dl (3.4-5.0); ANION GAP 8 MMOL/L (8-16); BLOOD UREA NITROGEN 35.2 mg/dL (7-18); CO2 30 mmol/L (21-32); GLUCOSE,RANDOM 117 mg/dL (74-106); LIPASE 490 U/L (73-393); MAGNESIUM 2.5 mg/dL (1.8-2.4)
[2021-08-21 23:54] LABS: CREATININE 1.4 mg/dL (0.55-1.3); PHOSPHOROUS 3.2 mg/dL (2.5-4.9); SGPT/ALT 69 U/L (13-61)
[2021-08-21 23:55] LABS: SGOT/AST 38 U/L (15-37)
[2021-08-21 23:56] LABS: BILIRUBIN,TOTAL 0.5 mg/dL (0.2-1); TOT PROT 8.6 g/dl (6.4-8.2)
[2021-08-21 23:57] LABS: ALK PHOS 87 U/L (45-117)
[2021-08-22] MEDS ORDERED: ASPIRIN 81 MG CHEWABLE TABLETS PO ONE (00:49)
[2021-08-22] MEDS ORDERED: HEPARIN NA (PORCINE) 5,000 UNITS/ML 1ML VIAL IVPUSH ONE (01:37)
[2021-08-22] MEDS ORDERED: HEPARIN NA (PORCINE) 5,000 UNITS/ML 1ML VIAL IVPUSH PRN ×2 (01:42)
[2021-08-22] MEDS ORDERED: HEPARIN - 25,000 UNIT in SODIUM CHLORIDE 495 ML IV SCH (01:45)
[2021-08-22] MEDS ORDERED: ASPIRIN 81 MG CHEWABLE TABLETS ONE (02:25)
[2021-08-22] MEDS ORDERED: HEPARIN INFUSION - 25,000 UNITS/500 ML INFUS.BAG IVPB ONE (02:26)
[2021-08-22] MEDS ORDERED: HEPARIN NA (PORCINE) 5,000 UNITS/ML 1ML VIAL ONE (02:26)
[2021-08-22 04:32] VITALS: BMI 29.4
[2021-08-22] MEDS ORDERED: PATIENT'S OWN MEDICATION (NON-FORMULARY) (Brimonidine Tartrate/Timolol [Combigan 0.2%-0.5% OS SCH (10:00)
[2021-08-22] MEDS ORDERED: MAG HYDROX/AL HYDROX/SIMETH 30 ML UNIT-DOSE CUP PO PRN (10:18)
[2021-08-22] MEDS: BRIMONIDINE TARTRATE 0.2% OPHTHALMIC 5 ML BOTTLE OS SCH ×2 (10:51→23:05)
[2021-08-22] MEDS: TIMOLOL 0.5% OPHTHALMIC SOL 5 ML BOTTLE OS SCH ×2 (10:57→23:06)
[2021-08-22] MEDS: FOLIC ACID 1 MG TABLET (FP) PO SCH (10:58)
[2021-08-22] MEDS: PANTOPRAZOLE 20 MG TABLET PO SCH ×2 (10:58→22:53)
[2021-08-22] MEDS: amLODIPine BESYLATE 10 MG TABLET (FP) PO SCH (10:58)
[2021-08-22] MEDS: LOSARTAN POTASSIUM 50 MG TABLET PO SCH (10:58)
[2021-08-22] MEDS: OMEGA-3 ACID ETHYL ESTERS (FATTY-ACIDS) 1 GM CAPSULE (FP) PO SCH (10:59)
[2021-08-22] MEDS: APIXABAN 5 MG TABLET PO SCH ×2 (14:44→22:52)
[2021-08-22 19:31] LABS: EPI CELLS 7 /uL (0-25.1); HYALINE CASTS 0 /uL (0-3.1); PH,URINE 6.5 (5.0-8.0); URINE APPEARANCE CLEAR; URINE BACTERIA 101 /uL (0-1359); URINE BILIRUBIN NEGATIVE (NEGATIVE); URINE COLOR YELLOW; URINE GLUCOSE (UA) NEGATIVE (NEGATIVE); URINE KETONE NEGATIVE (NEGATIVE); URINE LEUK ESTERASE TRACE (NEGATIVE); URINE NITRITE NEGATIVE (NEGATIVE); URINE PROTEIN NEGATIVE (NEGATIVE); URINE RBC 5 /uL (0-23.9); URINE UROBILINOGEN 0.2 mg/dL (0.2-1.0); URINE WBC 8 /uL (0-25.8)
[2021-08-22] MEDS ORDERED: ROSUVASTATIN CA 5 MG TABLET PO SCH (22:00)
[2021-08-22] MEDS ORDERED: LATANOPROST 0.005% OPHTH SOLN 2.5ML BOTTLE OU SCH (22:00)
[2021-08-23 07:30] LABS: BASO % 0.6 % (0-2.0); EOS % 1.8 % (0-4.5); HEMATOCRIT 31.4 % (32.4-45.2); HEMOGLOBIN 10.8 GM/dL (10.7-15.3); LYMPH % 23.3 % (8-40); MCH 32.9 pg (25.7-33.7); MCHC 34.3 g/dl (32.0-36.0); MEAN CELL VOLUME 95.7 fl (80-96); MEAN PLT VOLUME 10.6 fl (7.5-11.1); NEUT % 65.3 % (42.8-82.8); PLATELET COUNT 132 10^3/uL (134-434); RBC 3.28 M/mm3 (3.60-5.2); RDW 12.4 % (11.6-15.6); WHITE BLOOD COUNT 6.5 K/mm3 (4.0-10.0)
[2021-08-23 07:38] LABS: INR 2.4 (0.83-1.09); PROTHROMBIN TIME (PATIENT) 27.8 SEC (9.7-13.0)
[2021-08-23 07:55] LABS: BILIRUBIN,DIRECT 0.2 mg/dL (0.0-0.2); BLOOD UREA NITROGEN 24.3 mg/dL (7-18)
[2021-08-23 07:59] LABS: BILIRUBIN,TOTAL 0.7 mg/dL (0.2-1); CREATININE 1.3 mg/dL (0.55-1.3)
[2021-08-23 08:04] LABS: ALBUMIN 2.8 g/dl (3.4-5.0); CALCIUM 9.1 mg/dL (8.5-10.1); TOT PROT 6.1 g/dl (6.4-8.2)
[2021-08-23] MEDS: APIXABAN 5 MG TABLET PO SCH ×2 (09:01→21:01)
[2021-08-23] MEDS: amLODIPine BESYLATE 10 MG TABLET (FP) PO SCH (09:01)
[2021-08-23] MEDS: FOLIC ACID 1 MG TABLET (FP) PO SCH (09:01)
[2021-08-23] MEDS: OMEGA-3 ACID ETHYL ESTERS (FATTY-ACIDS) 1 GM CAPSULE (FP) PO SCH (09:01)
[2021-08-23] MEDS: PANTOPRAZOLE 20 MG TABLET PO SCH ×2 (09:01→21:00)
[2021-08-23] MEDS: BRIMONIDINE TARTRATE 0.2% OPHTHALMIC 5 ML BOTTLE OS SCH ×2 (09:01→21:01)
[2021-08-23] MEDS: LOSARTAN POTASSIUM 50 MG TABLET PO SCH (09:01)
[2021-08-23] MEDS: TIMOLOL 0.5% OPHTHALMIC SOL 5 ML BOTTLE OS SCH ×2 (09:17→21:01)
[2021-08-23] MEDS ORDERED: MAG HYDROX/AL HYDROX/SIMETH 30 ML UNIT-DOSE CUP PO PRN (19:34)
[2021-08-23] MEDS ORDERED: ROSUVASTATIN CA 5 MG TABLET PO SCH (22:00)
[2021-08-23] MEDS ORDERED: LATANOPROST 0.005% OPHTH SOLN 2.5ML BOTTLE OU SCH (22:00)
[2021-08-24] MEDS ORDERED: FOLIC ACID 1 MG TABLET (FP) PO SCH (10:00)
[2021-08-24] MEDS ORDERED: LOSARTAN POTASSIUM 50 MG TABLET PO SCH (10:00)
[2021-08-24] MEDS ORDERED: OMEGA-3 ACID ETHYL ESTERS (FATTY-ACIDS) 1 GM CAPSULE (FP) PO SCH (10:00)
[2021-08-24] MEDS ORDERED: amLODIPine BESYLATE 10 MG TABLET (FP) PO SCH (10:00)
[2021-08-24] MEDS: PANTOPRAZOLE 20 MG TABLET PO SCH (10:41)
[2021-08-24] MEDS: APIXABAN 5 MG TABLET PO SCH (10:41)
[2021-08-24] MEDS: BRIMONIDINE TARTRATE 0.2% OPHTHALMIC 5 ML BOTTLE OS SCH (10:42)
[2021-08-24] MEDS: TIMOLOL 0.5% OPHTHALMIC SOL 5 ML BOTTLE OS SCH (10:42)
[2021-08-24 10:49] LABS: BASO % 0.7 % (0-2.0); EOS % 1.6 % (0-4.5); HEMATOCRIT 34.4 % (32.4-45.2); HEMOGLOBIN 11.7 GM/dL (10.7-15.3); LYMPH % 22.1 % (8-40); MCH 32.4 pg (25.7-33.7); MCHC 33.9 g/dl (32.0-36.0); MEAN CELL VOLUME 95.7 fl (80-96); MEAN PLT VOLUME 10.2 fl (7.5-11.1); MONO % 7.5 % (3.8-10.2); NEUT % 68.1 % (42.8-82.8); PLATELET COUNT 156 10^3/uL (134-434); RBC 3.59 M/mm3 (3.60-5.2); RDW 12.6 % (11.6-15.6); WHITE BLOOD COUNT 6.7 K/mm3 (4.0-10.0)
[2021-08-24 11:01] VITALS: BP 117/53; PULSE 84; TEMP 98
[2021-08-24 11:21] LABS: CREATININE 1.6 mg/dL (0.55-1.3)
[2021-08-26 00:06] LABS: IGG QN IMMUNOGLOBULIN 1252 mg/dL (586-1602); IGG SUBCLASS 1 591 mg/dL (248-810); IGG SUBCLASS 2 292 mg/dL (130-555); IGG SUBCLASS 3 28 mg/dL (15-102)
== END 2021-08-24 14:56 | disposition home or self-care (01) | DRG 176 ==
LOC: JER 19:27 → JERBED 08-22 00:52 → J4W 08-22 04:26 → J5S 08-23 18:23
PROVIDERS: ADMIT Internal Medicine; ATTEND Internal Medicine
DX: I26.99 Other pulmonary embolism without acute cor pulmonale (principal); I24.8 Other forms of acute ischemic heart disease; I12.9 Hypertensive chronic kidney disease with stage 1 through stage 4 chronic kidney disease, or unspecified chronic kidney disease; N18.30 Chronic kidney disease, stage 3 unspecified; D64.9 Anemia, unspecified; R74.01 Elevation of levels of liver transaminase levels; E78.5 Hyperlipidemia, unspecified
CPT/HCPCS: 36415; 71045-TC-FY; 74177-TC; 76700-TC; 80048; 80053; 80061; 80076; 81003; 82272; 82784; 82787; 83605; 83690; 83735; 83883; 84100; 84155; 84165; 84443; 84484; 85025; 85610; 85730; 86038; 86334; 86704; 86709; 86803; 87086; 87340; 87517; 93005; 93010; 93970-TC; 99285-25; C9803-CS; J1644; Q9967; U0003; U0005

== ENCOUNTER → 2022-03-06 | Day surgery (SDC) | payer OTHER | END | disposition home or self-care (01) | LOC: JRADUS-SUR 12:30 | PROVIDERS: ATTEND Internal Medicine | PROC: 0H9T3ZX Drainage of Right Breast, Percutaneous Approach, Diagnostic (ICD-10-PCS; principal; 2022-03-06) | DX: C50.911 Malignant neoplasm of unspecified site of right female breast (principal) | CPT/HCPCS: 19083; 77065-TC; 87899; 88305-TC; 88342-TC; A4648 ==

== ENCOUNTER 2022-04-30 04:05 | Day surgery (SDC) | payer OTHER ==
[2022-04-26 12:41] VITALS: BMI 28.8
[2022-04-30] MEDS ORDERED: LIDOCAINE HCL 1%, 10 MG/ML (10ML VIAL) MDV ONE (07:15)
[2022-04-30] MEDS ORDERED: ISOSULFAN BLUE 50 MG/5 ML VIAL SQ ONE (07:15)
[2022-04-30] MEDS ORDERED: MIDAZOLAM HCL 2 MG/2 ML SINGLE DOSE VIAL ONE (08:17)
[2022-04-30] MEDS ORDERED: PROPOFOL 40 ML ONE (08:17)
[2022-04-30] MEDS ORDERED: LIDOCAINE HCL/PF 2% SDV 5ML VIAL ONE (08:17)
[2022-04-30 08:28] LABS: HEMATOCRIT 31.6 % (32.4-45.2); HEMOGLOBIN 10.9 GM/dL (10.7-15.3); MCH 32.5 pg (25.7-33.7); MCHC 34.7 g/dl (32.0-36.0); MEAN CELL VOLUME 93.8 fl (80-96); PLATELET COUNT 170 10^3/uL (134-434); RBC 3.36 M/mm3 (3.60-5.2); RDW 13.5 % (11.6-15.6); WHITE BLOOD COUNT 6.7 K/mm3 (4.0-10.0)
[2022-04-30] MEDS ORDERED: ceFAZolin SODIUM 1 GM VIAL ONE (10:08)
[2022-04-30] MEDS ORDERED: DEXAMETHASONE SOD PHOSPHATE 4 MG/1 ML VIAL ONE (10:08)
[2022-04-30] MEDS ORDERED: ceFAZolin SODIUM 1 GM VIAL IVPB ONE (10:10)
[2022-04-30] MEDS ORDERED: LIDOCAINE HCL 1%, 10 MG/ML (20ML VIAL) INF ONE ×2 (10:19)
[2022-04-30] MEDS ORDERED: ONDANSETRON 4 MG/2 ML VIAL ONE ×2 (10:28→13:05)
[2022-04-30] MEDS ORDERED: KETOROLAC TROMETHAMINE 30 MG/1 ML VIAL ONE (10:45)
[2022-04-30] MEDS ORDERED: oxyCODONE HCL 5 MG TABLET PO PRN ×2 (11:11)
[2022-04-30] MEDS ORDERED: ONDANSETRON 4 MG/2 ML VIAL IVPUSH PRN (11:11)
[2022-04-30] MEDS ORDERED: PROMETHAZINE HCL 25 MG/1 ML VIAL IVPB PRN (11:11)
[2022-04-30] MEDS ORDERED: ACETAMINOPHEN 1000 MG/100 ML BAG IVPB ONE (11:11)
[2022-04-30] MEDS ORDERED: LACTATED RINGERS SOLUTION 1,000 ML IV SCH (11:15)
[2022-04-30] MEDS ORDERED: ACETAMINOPHEN INJECTION 100 ML IVPB ONE (11:56)
[2022-04-30 13:44] VITALS: PULSE 53; RESP 18; TEMP 97.5
[2022-04-30 16:34] VITALS: BP 141/56
== END 2022-04-30 15:00 | disposition home or self-care (01) ==
LOC: JASU-SURG 04:05
PROVIDERS: ATTEND Surgery
PROC: 0HBT0ZZ Excision of Right Breast, Open Approach (ICD-10-PCS; principal; 2022-04-30 09:00)
PROC: 0HBT0ZX Excision of Right Breast, Open Approach, Diagnostic (ICD-10-PCS; 2022-04-30 09:00)
DX: C50.911 Malignant neoplasm of unspecified site of right female breast (principal)
CPT/HCPCS: 36415; 78195-TC; 85027; 88307-TC; 88341-TC; 88342-TC; 94760; A9541

== ENCOUNTER 2022-06-07 04:21 | Day surgery (SDC) | payer OTHER ==
[2022-06-06 13:56] VITALS: BMI 28.8
[2022-06-07 08:38] LABS: BASO % 0.7 % (0-2.0); EOS % 1.2 % (0-4.5); HEMATOCRIT 33.5 % (32.4-45.2); HEMOGLOBIN 11.5 GM/dL (10.7-15.3); LYMPH % 23.6 % (8-40); MCH 31.9 pg (25.7-33.7); MCHC 34.3 g/dl (32.0-36.0); MEAN CELL VOLUME 92.9 fl (80-96); MEAN PLT VOLUME 9.3 fl (7.5-11.1); MONO % 10.8 % (3.8-10.2); NEUT % 63.7 % (42.8-82.8); PLATELET COUNT 187 10^3/uL (134-434); RDW 13.2 % (11.6-15.6); WHITE BLOOD COUNT 6.6 K/mm3 (4.0-10.0)
[2022-06-07 08:39] LABS: INR 1.08 (0.83-1.09); PROTHROMBIN TIME (PATIENT) 12.5 SEC (9.7-13.0)
[2022-06-07 11:12] VITALS: RESP 18
[2022-06-07 12:15] VITALS: TEMP 97.5
[2022-06-07 12:53] VITALS: BP 134/51; PULSE 60
== END 2022-06-07 13:05 | disposition home or self-care (01) ==
LOC: JRADIR 04:21
PROVIDERS: ATTEND Registered Nurse
PROC: 0JH63WZ Insertion of Totally Implantable Vascular Access Device into Chest Subcutaneous Tissue and Fascia, Percutaneous Approach (ICD-10-PCS; principal; 2022-06-07)
DX: C50.919 Malignant neoplasm of unspecified site of unspecified female breast (principal)
CPT/HCPCS: 36561; C1788; 36415; 77001-TC-FY; 85025; 85610

== ENCOUNTER 2022-06-19 09:46 | Day surgery (SDC) | payer OTHER ==
[2022-06-19 09:45] LABS: BASO % 0.9 % (0-2.0); EOS % 1.3 % (0-4.5); HEMATOCRIT 31.4 % (32.4-45.2); HEMOGLOBIN 10.9 GM/dL (10.7-15.3); LYMPH % 21.5 % (8-40); MCH 32.3 pg (25.7-33.7); MCHC 34.7 g/dl (32.0-36.0); MEAN CELL VOLUME 93.1 fl (80-96); MEAN PLT VOLUME 9.5 fl (7.5-11.1); MONO % 12.3 % (3.8-10.2); PLATELET COUNT 175 10^3/uL (134-434); RBC 3.37 M/mm3 (3.60-5.2); RDW 13.1 % (11.6-15.6); WHITE BLOOD COUNT 5.8 K/mm3 (4.0-10.0)
[2022-06-19 10:06] LABS: POTASSIUM 4.2 mmol/L (3.5-5.1)
[2022-06-19 10:08] LABS: ALBUMIN 3.4 g/dl (3.4-5.0); CALCIUM 9.4 mg/dL (8.5-10.1)
[2022-06-19 10:10] LABS: BLOOD UREA NITROGEN 26.7 mg/dL (7-18)
[2022-06-19 10:11] LABS: BILIRUBIN,DIRECT 0.1 mg/dL (0.0-0.2); CREATININE 1.3 mg/dL (0.55-1.3)
[2022-06-19 10:13] LABS: BILIRUBIN,TOTAL 0.4 mg/dL (0.2-1); TOT PROT 7.2 g/dl (6.4-8.2)
[2022-06-19] MEDS ORDERED: DEXAMETHASONE SODIUM PHOSPHATE 10 MG, DIPHENHYDRAMINE 25 MG in SODIUM CHLORIDE 100 ML IVPB ONE (11:30)
[2022-06-19] MEDS ORDERED: FAMOTIDINE 20 MG/50 ML IVPB 20 MG/50 ML MG IVPB ONE (11:30)
[2022-06-19] MEDS ORDERED: TRASTUZUMAB ANNS IVPB ONE (12:00)
[2022-06-19] MEDS ORDERED: SODIUM CHLORIDE IVPB ONE ×2 (12:00→13:30)
[2022-06-19] MEDS ORDERED: PACLITAXEL IVPB ONE (13:30)
[2022-06-19] MEDS ORDERED: SODIUM CHLORIDE 250 ML IV ONE (14:50)
[2022-06-19] MEDS ORDERED: methylPREDNISolone NA SUCC 40 MG/1 ML VIAL IVPUSH ONE (14:50)
[2022-06-19 18:10] VITALS: RESP 18; TEMP 98.2
[2022-06-19] MEDS ORDERED: PORTA CATH FLUSH 10 ML IVPUSH PRN (18:10)
[2022-06-19 18:16] VITALS: BP 139/50; PULSE 60
== END 2022-06-19 17:35 | disposition home or self-care (01) ==
LOC: J7W 09:46 → JONCCHEMO 09:46
PROVIDERS: ATTEND Specialist
PROC: 3E04305 Introduction of Other Antineoplastic into Central Vein, Percutaneous Approach (ICD-10-PCS; principal; 2022-06-19)
PROC: XW0 New Technology, Anatomical Regions, Introduction (ICD-10-PCS; 2022-06-19)
DX: Z51.11 Encounter for antineoplastic chemotherapy (principal); C50.011 Malignant neoplasm of nipple and areola, right female breast; Z17.0 Estrogen receptor positive status [ER+]
CPT/HCPCS: 36415; 80048; 80076; 85025; 96367; 96375; 96413; 96417; Q5117

== ENCOUNTER 2022-06-26 09:15 | Day surgery (SDC) | payer OTHER ==
[2022-06-26] MEDS ORDERED: DEXAMETHASONE SODIUM PHOSPHATE 10 MG, DIPHENHYDRAMINE 25 MG in SODIUM CHLORIDE 100 ML IVPB ONE (09:30)
[2022-06-26] MEDS ORDERED: FAMOTIDINE 20 MG/50 ML IVPB 20 MG/50 ML MG IVPB ONE (09:30)
[2022-06-26 09:57] LABS: BASO % 0.6 % (0-2.0); EOS % 2.6 % (0-4.5); HEMATOCRIT 29.3 % (32.4-45.2); HEMOGLOBIN 10.3 GM/dL (10.7-15.3); LYMPH % 29.4 % (8-40); MCH 32.8 pg (25.7-33.7); MCHC 35.2 g/dl (32.0-36.0); MEAN CELL VOLUME 93.2 fl (80-96); MEAN PLT VOLUME 10.8 fl (7.5-11.1); MONO % 5.3 % (3.8-10.2); NEUT % 62.1 % (42.8-82.8); PLATELET COUNT 159 10^3/uL (134-434); RBC 3.15 M/mm3 (3.60-5.2); RDW 12.7 % (11.6-15.6)
[2022-06-26 10:27] LABS: POTASSIUM 4.4 mmol/L (3.5-5.1)
[2022-06-26] MEDS ORDERED: SODIUM CHLORIDE IVPB ONE (10:30)
[2022-06-26] MEDS ORDERED: TRASTUZUMAB ANNS IVPB ONE (10:30)
[2022-06-26 10:31] LABS: CALCIUM 9.1 mg/dL (8.5-10.1)
[2022-06-26 10:32] LABS: ALBUMIN 3.4 g/dl (3.4-5.0); BLOOD UREA NITROGEN 20.9 mg/dL (7-18)
[2022-06-26 10:34] LABS: BILIRUBIN,DIRECT 0.2 mg/dL (0.0-0.2)
[2022-06-26 10:35] LABS: CREATININE 1.1 mg/dL (0.55-1.3)
[2022-06-26 10:36] LABS: BILIRUBIN,TOTAL 0.6 mg/dL (0.2-1)
[2022-06-26 10:37] LABS: TOT PROT 7.3 g/dl (6.4-8.2)
[2022-06-26] MEDS ORDERED: PACLITAXEL 132 MG in SODIUM CHLORIDE 250 ML IVPB ONE (11:00)
[2022-06-26 16:40] VITALS: BP 158/51; PULSE 59; RESP 18; TEMP 97.9
[2022-06-26] MEDS ORDERED: PORTA CATH FLUSH 10 ML IVPUSH PRN (16:40)
== END 2022-06-26 16:10 | disposition home or self-care (01) ==
LOC: JONCCHEMO 09:15 → J7W 09:21 → JONCCHEMO 16:10
PROVIDERS: ATTEND Specialist
DX: Z51.11 Encounter for antineoplastic chemotherapy (principal); C50.919 Malignant neoplasm of unspecified site of unspecified female breast
CPT/HCPCS: 36415; 80048; 80076; 85025; 96367; 96413; 96417; Q5117

== ENCOUNTER 2022-07-03 09:12 | Day surgery (SDC) | payer OTHER ==
[2022-07-03] MEDS ORDERED: FAMOTIDINE 20 MG/50 ML IVPB 20 MG/50 ML MG IVPB ONE (10:00)
[2022-07-03] MEDS ORDERED: DEXAMETHASONE SODIUM PHOSPHATE 10 MG, DIPHENHYDRAMINE 25 MG in SODIUM CHLORIDE 100 ML IVPB ONE (10:00)
[2022-07-03] MEDS ORDERED: SODIUM CHLORIDE IVPB ONE (10:30)
[2022-07-03] MEDS ORDERED: TRASTUZUMAB ANNS IVPB ONE (10:30)
[2022-07-03 10:32] LABS: HEMATOCRIT 24.7 % (32.4-45.2); HEMOGLOBIN 8.5 GM/dL (10.7-15.3); MCH 31.7 pg (25.7-33.7); MCHC 34.2 g/dl (32.0-36.0); MEAN CELL VOLUME 92.7 fl (80-96); MEAN PLT VOLUME 9.7 fl (7.5-11.1); PLATELET COUNT 190 10^3/uL (134-434); RBC 2.67 M/mm3 (3.60-5.2); RDW 12.8 % (11.6-15.6)
[2022-07-03 10:42] LABS: WHITE BLOOD COUNT 1.4 K/mm3 (4.0-10.0)
[2022-07-03 10:45] LABS: POTASSIUM 4.2 mmol/L (3.5-5.1)
[2022-07-03 10:47] LABS: CALCIUM 8.5 mg/dL (8.5-10.1)
[2022-07-03 10:48] LABS: BLOOD UREA NITROGEN 18.6 mg/dL (7-18)
[2022-07-03 10:51] LABS: BILIRUBIN,DIRECT 0.2 mg/dL (0.0-0.2); CREATININE 1.1 mg/dL (0.55-1.3)
[2022-07-03 10:52] LABS: BILIRUBIN,TOTAL 0.6 mg/dL (0.2-1)
[2022-07-03 10:53] LABS: TOT PROT 6.4 g/dl (6.4-8.2)
[2022-07-03 11:21] LABS: ANISOCYTOSIS 0; HELMET CELLS 0; HOWELL-JOLLY BODIES 0; MACROCYTOSIS 0; OVALOCYTE 0; ROULEAU 0; SICKELED CELLS 0; TARGET CELLS 0; TEAR DROP CELLS 0; TOXIC GRANULATION 0
[2022-07-03 14:46] VITALS: BP 121/47; PULSE 57; RESP 18; TEMP 98.2
[2022-07-03] MEDS ORDERED: PORTA CATH FLUSH 10 ML IVPUSH PRN (14:46)
== END 2022-07-03 13:45 | disposition home or self-care (01) ==
LOC: JONCCHEMO 09:12 → J7W 09:23 → JONCCHEMO 13:45
PROVIDERS: ATTEND Specialist
DX: Z51.11 Encounter for antineoplastic chemotherapy (principal); C50.011 Malignant neoplasm of nipple and areola, right female breast; Z17.0 Estrogen receptor positive status [ER+]
CPT/HCPCS: 36415; 80048; 80076; 85025; 96367; 96413; Q5117

== ENCOUNTER 2022-07-10 09:29 | Day surgery (SDC) | payer OTHER ==
[2022-07-10] MEDS ORDERED: FAMOTIDINE 20 MG/50 ML IVPB 20 MG/50 ML MG IVPB ONE (09:30)
[2022-07-10] MEDS ORDERED: DEXAMETHASONE SODIUM PHOSPHATE 4 MG, DIPHENHYDRAMINE 25 MG in SODIUM CHLORIDE 100 ML IVPB ONE (09:30)
[2022-07-10 09:38] LABS: BASO % 1.4 % (0-2.0); EOS % 3.3 % (0-4.5); HEMATOCRIT 29.5 % (32.4-45.2); HEMOGLOBIN 9.8 GM/dL (10.7-15.3); LYMPH % 31.2 % (8-40); MCH 30.9 pg (25.7-33.7); MCHC 33.2 g/dl (32.0-36.0); MEAN CELL VOLUME 93.1 fl (80-96); MEAN PLT VOLUME 8.6 fl (7.5-11.1); NEUT % 44.1 % (42.8-82.8); PLATELET COUNT 270 10^3/uL (134-434); RBC 3.17 M/mm3 (3.60-5.2); RDW 13.1 % (11.6-15.6); WHITE BLOOD COUNT 3.7 K/mm3 (4.0-10.0)
[2022-07-10 09:55] LABS: POTASSIUM 4.4 mmol/L (3.5-5.1)
[2022-07-10 09:57] LABS: CALCIUM 9.3 mg/dL (8.5-10.1)
[2022-07-10 09:58] LABS: ALBUMIN 3.4 g/dl (3.4-5.0); BLOOD UREA NITROGEN 18.4 mg/dL (7-18)
[2022-07-10] MEDS ORDERED: TRASTUZUMAB ANNS IVPB ONE (10:00)
[2022-07-10] MEDS ORDERED: SODIUM CHLORIDE IVPB ONE ×2 (10:00→10:30)
[2022-07-10 10:01] LABS: BILIRUBIN,DIRECT 0.1 mg/dL (0.0-0.2); CREATININE 1.2 mg/dL (0.55-1.3)
[2022-07-10 10:03] LABS: BILIRUBIN,TOTAL 0.3 mg/dL (0.2-1); TOT PROT 7.2 g/dl (6.4-8.2)
[2022-07-10] MEDS ORDERED: PACLITAXEL IVPB ONE (10:30)
[2022-07-10] MEDS ORDERED: PACLITAXEL 126 MG in SODIUM CHLORIDE 250 ML IVPB ONE (11:00)
[2022-07-10 15:32] VITALS: BP 121/73; PULSE 64; RESP 18; TEMP 97.9
== END 2022-07-10 14:45 | disposition home or self-care (01) ==
LOC: JONCCHEMO 09:29 → J7W 09:31 → JONCCHEMO 14:45
PROVIDERS: ATTEND Specialist
DX: Z51.11 Encounter for antineoplastic chemotherapy (principal); C50.911 Malignant neoplasm of unspecified site of right female breast
CPT/HCPCS: 36415; 80048; 80076; 85025; 96367; 96413; 96417; Q5117

== ENCOUNTER 2022-07-17 09:11 | Day surgery (SDC) | payer OTHER ==
[2022-07-17] MEDS ORDERED: DEXAMETHASONE SODIUM PHOSPHATE 4 MG, DIPHENHYDRAMINE 25 MG in SODIUM CHLORIDE 100 ML IVPB ONE (09:30)
[2022-07-17] MEDS ORDERED: FAMOTIDINE 20 MG/50 ML IVPB 20 MG/50 ML MG IVPB ONE (09:30)
[2022-07-17] MEDS ORDERED: SODIUM CHLORIDE IVPB ONE (10:00)
[2022-07-17] MEDS ORDERED: TRASTUZUMAB ANNS IVPB ONE (10:00)
[2022-07-17 10:14] LABS: BASO % 1.3 % (0-2.0); EOS % 1.9 % (0-4.5); HEMOGLOBIN 9.1 GM/dL (10.7-15.3); LYMPH % 29.3 % (8-40); MCH 31.2 pg (25.7-33.7); MCHC 33.7 g/dl (32.0-36.0); MEAN CELL VOLUME 92.7 fl (80-96); MONO % 9.3 % (3.8-10.2); NEUT % 58.2 % (42.8-82.8); PLATELET COUNT 222 10^3/uL (134-434); RBC 2.91 M/mm3 (3.60-5.2); WHITE BLOOD COUNT 3.5 K/mm3 (4.0-10.0)
[2022-07-17] MEDS ORDERED: PACLITAXEL 126 MG in SODIUM CHLORIDE 250 ML IVPB ONE (10:30)
[2022-07-17 10:56] LABS: POTASSIUM 4.8 mmol/L (3.5-5.1)
[2022-07-17 11:00] LABS: CALCIUM 9.5 mg/dL (8.5-10.1)
[2022-07-17 11:01] LABS: ALBUMIN 3.3 g/dl (3.4-5.0); BLOOD UREA NITROGEN 18.6 mg/dL (7-18)
[2022-07-17 11:03] LABS: BILIRUBIN,DIRECT 0.2 mg/dL (0.0-0.2)
[2022-07-17 11:04] LABS: CREATININE 1.2 mg/dL (0.55-1.3)
[2022-07-17 11:05] LABS: BILIRUBIN,TOTAL 0.5 mg/dL (0.2-1); TOT PROT 6.8 g/dl (6.4-8.2)
[2022-07-17 15:35] VITALS: BP 167/61; PULSE 70; RESP 18; TEMP 97.8
== END 2022-07-17 15:30 | disposition home or self-care (01) ==
LOC: J7W 09:11 → JONCCHEMO 09:11
PROVIDERS: ATTEND Specialist
DX: Z51.11 Encounter for antineoplastic chemotherapy (principal); C50.911 Malignant neoplasm of unspecified site of right female breast
CPT/HCPCS: 36415; 80048; 80076; 85025; 96367; 96413; 96417; Q5117

== ENCOUNTER 2022-07-24 09:01 | Day surgery (SDC) | payer OTHER ==
[2022-07-24 09:23] LABS: HEMATOCRIT 27.4 % (32.4-45.2); HEMOGLOBIN 9.1 GM/dL (10.7-15.3); MCH 31.1 pg (25.7-33.7); MCHC 33.1 g/dl (32.0-36.0); MEAN CELL VOLUME 93.8 fl (80-96); MEAN PLT VOLUME 9.1 fl (7.5-11.1); PLATELET COUNT 215 10^3/uL (134-434); RBC 2.92 M/mm3 (3.60-5.2); RDW 13.1 % (11.6-15.6); WHITE BLOOD COUNT 2.2 K/mm3 (4.0-10.0)
[2022-07-24 09:42] LABS: POTASSIUM 3.9 mmol/L (3.5-5.1)
[2022-07-24 09:47] LABS: BLOOD UREA NITROGEN 22.9 mg/dL (7-18)
[2022-07-24 09:48] LABS: ALBUMIN 3.4 g/dl (3.4-5.0); CALCIUM 9.2 mg/dL (8.5-10.1)
[2022-07-24 09:49] LABS: CREATININE 1.2 mg/dL (0.55-1.3)
[2022-07-24 09:51] LABS: BILIRUBIN,DIRECT 0.2 mg/dL (0.0-0.2)
[2022-07-24 09:52] LABS: BILIRUBIN,TOTAL 0.4 mg/dL (0.2-1)
[2022-07-24] MEDS ORDERED: FAMOTIDINE 20 MG/50 ML IVPB 20 MG/50 ML MG IVPB ONE (10:00)
[2022-07-24] MEDS ORDERED: DEXAMETHASONE SODIUM PHOSPHATE 4 MG, DIPHENHYDRAMINE 25 MG in SODIUM CHLORIDE 100 ML IVPB ONE (10:00)
[2022-07-24 10:07] LABS: ANISOCYTOSIS 0; MACROCYTOSIS 1+
[2022-07-24] MEDS ORDERED: SODIUM CHLORIDE IVPB ONE (11:00)
[2022-07-24] MEDS ORDERED: TRASTUZUMAB ANNS IVPB ONE (11:00)
[2022-07-24] MEDS ORDERED: PACLITAXEL 126 MG in SODIUM CHLORIDE 250 ML IVPB ONE (11:30)
[2022-07-24 15:49] VITALS: BP 145/58; PULSE 73; RESP 16; TEMP 98.2
[2022-07-24] MEDS ORDERED: PORTA CATH FLUSH 10 ML IVPUSH PRN (15:49)
== END 2022-07-24 12:25 | disposition home or self-care (01) ==
LOC: JONCCHEMO 09:01 → J7W 09:03 → JONCCHEMO 12:25
PROVIDERS: ATTEND Specialist
DX: Z51.11 Encounter for antineoplastic chemotherapy (principal); C50.011 Malignant neoplasm of nipple and areola, right female breast; Z17.0 Estrogen receptor positive status [ER+]
CPT/HCPCS: 36415; 80048; 80076; 85025; 96367; 96413; Q5117

== ENCOUNTER 2022-07-31 09:04 | Day surgery (SDC) | payer OTHER ==
[2022-07-31 09:49] LABS: BASO % 0.8 % (0-2.0); EOS % 3.4 % (0-4.5); HEMATOCRIT 28.3 % (32.4-45.2); HEMOGLOBIN 9.7 GM/dL (10.7-15.3); LYMPH % 19.6 % (8-40); MCH 31.4 pg (25.7-33.7); MCHC 34.1 g/dl (32.0-36.0); MEAN CELL VOLUME 91.8 fl (80-96); MEAN PLT VOLUME 8.6 fl (7.5-11.1); MONO % 19.8 % (3.8-10.2); NEUT % 56.4 % (42.8-82.8); PLATELET COUNT 254 10^3/uL (134-434); RBC 3.08 M/mm3 (3.60-5.2); RDW 13.6 % (11.6-15.6); WHITE BLOOD COUNT 5.3 K/mm3 (4.0-10.0)
[2022-07-31 09:56] LABS: POTASSIUM 4.2 mmol/L (3.5-5.1)
[2022-07-31 09:58] LABS: CALCIUM 9.2 mg/dL (8.5-10.1)
[2022-07-31 09:59] LABS: ALBUMIN 3.4 g/dl (3.4-5.0); BLOOD UREA NITROGEN 17.7 mg/dL (7-18)
[2022-07-31] MEDS ORDERED: DEXAMETHASONE SODIUM PHOSPHATE 4 MG, DIPHENHYDRAMINE 25 MG in SODIUM CHLORIDE 100 ML IVPB ONE (10:00)
[2022-07-31] MEDS ORDERED: FAMOTIDINE 20 MG/50 ML IVPB 20 MG/50 ML MG IVPB ONE (10:00)
[2022-07-31 10:01] LABS: BILIRUBIN,DIRECT 0.1 mg/dL (0.0-0.2); CREATININE 1.2 mg/dL (0.55-1.3)
[2022-07-31 10:03] LABS: BILIRUBIN,TOTAL 0.4 mg/dL (0.2-1)
[2022-07-31] MEDS ORDERED: TRASTUZUMAB ANNS IVPB ONE (10:30)
[2022-07-31] MEDS ORDERED: SODIUM CHLORIDE IVPB ONE (10:30)
[2022-07-31] MEDS ORDERED: PACLITAXEL 126 MG in SODIUM CHLORIDE 250 ML IVPB ONE (11:00)
[2022-07-31 18:12] VITALS: BP 130/57; PULSE 64; RESP 18; TEMP 98.4
[2022-07-31] MEDS ORDERED: PORTA CATH FLUSH 10 ML IVPUSH PRN (18:12)
== END 2022-07-31 14:00 | disposition home or self-care (01) ==
LOC: JONCCHEMO 09:04 → J7W 09:08 → JONCCHEMO 14:00
PROVIDERS: ATTEND Specialist
DX: Z51.11 Encounter for antineoplastic chemotherapy (principal); C50.011 Malignant neoplasm of nipple and areola, right female breast
CPT/HCPCS: 36415; 80048; 80076; 85025; 96367; 96413; 96417; Q5117

== ENCOUNTER 2022-08-07 09:13 | Day surgery (SDC) | payer OTHER ==
[2022-08-07 10:09] LABS: EOS % 4.1 % (0-4.5); HEMOGLOBIN 8.9 GM/dL (10.7-15.3); LYMPH % 27.4 % (8-40); MCH 30.8 pg (25.7-33.7); MEAN CELL VOLUME 93.4 fl (80-96); MEAN PLT VOLUME 9.8 fl (7.5-11.1); MONO % 8.1 % (3.8-10.2); NEUT % 59.4 % (42.8-82.8); PLATELET COUNT 229 10^3/uL (134-434); RBC 2.89 M/mm3 (3.60-5.2); RDW 13.4 % (11.6-15.6); WHITE BLOOD COUNT 3.4 K/mm3 (4.0-10.0)
[2022-08-07 10:26] LABS: POTASSIUM 4.3 mmol/L (3.5-5.1)
[2022-08-07 10:28] LABS: CALCIUM 9.6 mg/dL (8.5-10.1)
[2022-08-07 10:29] LABS: ALBUMIN 3.4 g/dl (3.4-5.0); BLOOD UREA NITROGEN 25.8 mg/dL (7-18)
[2022-08-07 10:32] LABS: BILIRUBIN,DIRECT 0.1 mg/dL (0.0-0.2); CREATININE 1.3 mg/dL (0.55-1.3)
[2022-08-07 10:33] LABS: BILIRUBIN,TOTAL 0.5 mg/dL (0.2-1); TOT PROT 6.7 g/dl (6.4-8.2)
[2022-08-07] MEDS ORDERED: FAMOTIDINE 20 MG/50 ML IVPB 20 MG/50 ML MG IVPB ONE (10:45)
[2022-08-07] MEDS ORDERED: DEXAMETHASONE SODIUM PHOSPHATE 4 MG, DIPHENHYDRAMINE 25 MG in SODIUM CHLORIDE 100 ML IVPB ONE (10:45)
[2022-08-07] MEDS ORDERED: SODIUM CHLORIDE IVPB ONE (11:30)
[2022-08-07] MEDS ORDERED: TRASTUZUMAB ANNS IVPB ONE (11:30)
[2022-08-07] MEDS ORDERED: PACLITAXEL 132 MG in SODIUM CHLORIDE 250 ML IVPB ONE (12:00)
[2022-08-07 17:33] VITALS: BP 142/58; PULSE 65; RESP 18; TEMP 98
[2022-08-07] MEDS ORDERED: PORTA CATH FLUSH 10 ML IVPUSH PRN (17:33)
== END 2022-08-07 14:35 | disposition home or self-care (01) ==
LOC: JONCCHEMO 09:13 → J7W 09:15 → JONCCHEMO 14:35
PROVIDERS: ATTEND Specialist
DX: Z51.11 Encounter for antineoplastic chemotherapy (principal); C50.011 Malignant neoplasm of nipple and areola, right female breast
CPT/HCPCS: 36415; 80048; 80076; 85025; 96366; 96413; 96417; Q5117

== ENCOUNTER 2022-08-21 09:23 | Day surgery (SDC) | payer OTHER ==
[2022-08-21] MEDS ORDERED: FAMOTIDINE 20 MG/50 ML IVPB 20 MG/50 ML MG IVPB ONE (09:30)
[2022-08-21] MEDS ORDERED: DEXAMETHASONE SODIUM PHOSPHATE 4 MG, DIPHENHYDRAMINE 25 MG in SODIUM CHLORIDE 100 ML IVPB ONE (09:30)
[2022-08-21 09:54] LABS: BASO % 0.6 % (0-2.0); EOS % 1.9 % (0-4.5); HEMATOCRIT 26.2 % (32.4-45.2); HEMOGLOBIN 8.7 GM/dL (10.7-15.3); LYMPH % 45.4 % (8-40); MCH 30.5 pg (25.7-33.7); MCHC 33.1 g/dl (32.0-36.0); MEAN CELL VOLUME 92.1 fl (80-96); MEAN PLT VOLUME 9.1 fl (7.5-11.1); MONO % 8.6 % (3.8-10.2); NEUT % 43.5 % (42.8-82.8); PLATELET COUNT 241 10^3/uL (134-434); RBC 2.84 M/mm3 (3.60-5.2); RDW 13.9 % (11.6-15.6); WHITE BLOOD COUNT 2.3 K/mm3 (4.0-10.0)
[2022-08-21] MEDS ORDERED: TRASTUZUMAB ANNS IVPB ONE (10:00)
[2022-08-21] MEDS ORDERED: SODIUM CHLORIDE IVPB ONE (10:00)
[2022-08-21 10:20] LABS: POTASSIUM 4.2 mmol/L (3.5-5.1)
[2022-08-21 10:22] LABS: CALCIUM 9.6 mg/dL (8.5-10.1)
[2022-08-21 10:23] LABS: ALBUMIN 3.4 g/dl (3.4-5.0); BLOOD UREA NITROGEN 14.4 mg/dL (7-18)
[2022-08-21 10:26] LABS: BILIRUBIN,DIRECT 0.1 mg/dL (0.0-0.2); CREATININE 1.3 mg/dL (0.55-1.3)
[2022-08-21 10:28] LABS: BILIRUBIN,TOTAL 0.5 mg/dL (0.2-1); TOT PROT 6.8 g/dl (6.4-8.2)
[2022-08-21] MEDS ORDERED: PACLITAXEL 132 MG in SODIUM CHLORIDE 250 ML IVPB ONE (10:30)
[2022-08-21] MEDS ORDERED: PORTA CATH FLUSH 10 ML IVPUSH PRN (16:41)
[2022-08-21 16:42] VITALS: BP 127/55; PULSE 78; RESP 20; TEMP 98.2
== END 2022-08-21 15:00 | disposition home or self-care (01) ==
LOC: J7W 09:23 → JONCCHEMO 09:23
PROVIDERS: ATTEND Specialist
DX: Z51.11 Encounter for antineoplastic chemotherapy (principal); C50.011 Malignant neoplasm of nipple and areola, right female breast; Z17.0 Estrogen receptor positive status [ER+]
CPT/HCPCS: 36415; 80048; 80076; 85025; 96367; 96413; 96417; Q5117

== ENCOUNTER 2022-08-28 09:04 | Day surgery (SDC) | payer OTHER ==
[2022-08-28 09:14] LABS: HEMATOCRIT 24.6 % (32.4-45.2); HEMOGLOBIN 8.2 GM/dL (10.7-15.3); MCH 30.3 pg (25.7-33.7); MCHC 33.3 g/dl (32.0-36.0); MEAN CELL VOLUME 91.3 fl (80-96); MEAN PLT VOLUME 8.6 fl (7.5-11.1); PLATELET COUNT 266 10^3/uL (134-434); RBC 2.69 M/mm3 (3.60-5.2); RDW 14.4 % (11.6-15.6)
[2022-08-28 09:30] LABS: WHITE BLOOD COUNT 1.9 K/mm3 (4.0-10.0)
[2022-08-28 09:39] LABS: CALCIUM 9.5 mg/dL (8.5-10.1)
[2022-08-28 09:40] LABS: ALBUMIN 3.2 g/dl (3.4-5.0); BLOOD UREA NITROGEN 11.6 mg/dL (7-18)
[2022-08-28 09:42] LABS: BILIRUBIN,DIRECT 0.1 mg/dL (0.0-0.2)
[2022-08-28 09:43] LABS: CREATININE 1.3 mg/dL (0.55-1.3)
[2022-08-28 09:45] LABS: BILIRUBIN,TOTAL 0.4 mg/dL (0.2-1)
[2022-08-28 09:46] LABS: TOT PROT 6.4 g/dl (6.4-8.2)
[2022-08-28 09:56] LABS: ANISOCYTOSIS 0; HELMET CELLS 0; HOWELL-JOLLY BODIES 0; MACROCYTOSIS 0; OVALOCYTE 0; ROULEAU 0; SICKELED CELLS 0; TARGET CELLS 0; TEAR DROP CELLS 0; TOXIC GRANULATION 0
[2022-08-28] MEDS ORDERED: FAMOTIDINE 20 MG/50 ML IVPB 20 MG/50 ML MG IVPB ONE (10:00)
[2022-08-28] MEDS ORDERED: DEXAMETHASONE SODIUM PHOSPHATE 4 MG, DIPHENHYDRAMINE 25 MG in SODIUM CHLORIDE 100 ML IVPB ONE (10:00)
[2022-08-28] MEDS ORDERED: SODIUM CHLORIDE 500 ML IV ONE (10:45)
[2022-08-28] MEDS ORDERED: TRASTUZUMAB ANNS IVPB ONE (11:00)
[2022-08-28] MEDS ORDERED: SODIUM CHLORIDE IVPB ONE (11:00)
[2022-08-28 12:18] VITALS: RESP 18; TEMP 98.1
[2022-08-28 15:35] VITALS: BP 126/58; PULSE 78
[2022-08-28] MEDS ORDERED: PORTA CATH FLUSH 10 ML IVPUSH PRN (15:35)
== END 2022-08-28 14:00 | disposition home or self-care (01) ==
LOC: JONCCHEMO 09:04 → J7W 09:05 → JONCCHEMO 14:00
PROVIDERS: ATTEND Specialist
DX: Z51.11 Encounter for antineoplastic chemotherapy (principal); C50.011 Malignant neoplasm of nipple and areola, right female breast; Z17.0 Estrogen receptor positive status [ER+]
CPT/HCPCS: 36415; 80048; 80076; 85025; 96367; 96413; Q5117

== ENCOUNTER 2022-09-25 09:10 | Day surgery (SDC) | payer OTHER ==
[2022-09-25 09:14] LABS: BASO % 1.2 % (0-2.0); EOS % 3.2 % (0-4.5); HEMATOCRIT 27.9 % (32.4-45.2); HEMOGLOBIN 9.1 GM/dL (10.7-15.3); LYMPH % 19.4 % (8-40); MCH 30.8 pg (25.7-33.7); MCHC 32.5 g/dl (32.0-36.0); MEAN CELL VOLUME 94.8 fl (80-96); MEAN PLT VOLUME 8.2 fl (7.5-11.1); MONO % 18.8 % (3.8-10.2); NEUT % 57.4 % (42.8-82.8); PLATELET COUNT 283 10^3/uL (134-434); RBC 2.94 M/mm3 (3.60-5.2); RDW 16.4 % (11.6-15.6); WHITE BLOOD COUNT 5.1 K/mm3 (4.0-10.0)
[2022-09-25 09:56] LABS: ALBUMIN 3.3 g/dl (3.4-5.0); BILIRUBIN,DIRECT 0.1 mg/dL (0.0-0.2); BILIRUBIN,TOTAL 0.3 mg/dL (0.2-1); BLOOD UREA NITROGEN 17.4 mg/dL (7-18); CALCIUM 9.6 mg/dL (8.5-10.1); CREATININE 1.3 mg/dL (0.55-1.3); POTASSIUM 4.6 mmol/L (3.5-5.1); TOT PROT 6.7 g/dl (6.4-8.2)
[2022-09-25] MEDS ORDERED: SODIUM CHLORIDE IVPB ONE ×2 (10:00→10:30)
[2022-09-25] MEDS ORDERED: TRASTUZUMAB ANNS IVPB ONE ×2 (10:00→10:30)
[2022-09-25 15:23] VITALS: BP 115/79; PULSE 69; RESP 18; TEMP 98.1
[2022-09-25] MEDS ORDERED: PORTA CATH FLUSH 10 ML IVPUSH PRN (15:23)
== END 2022-09-25 12:45 | disposition home or self-care (01) ==
LOC: JONCCHEMO 09:10
PROVIDERS: ATTEND Specialist
DX: Z51.11 Encounter for antineoplastic chemotherapy (principal); C50.919 Malignant neoplasm of unspecified site of unspecified female breast; Z17.0 Estrogen receptor positive status [ER+]
CPT/HCPCS: 36415; 80048; 80076; 85025; 96413; Q5117

== ENCOUNTER 2022-10-16 09:22 | Day surgery (SDC) | payer OTHER ==
[2022-10-16 09:48] LABS: BASO % 0.5 % (0-2.0); HEMATOCRIT 29.6 % (32.4-45.2); HEMOGLOBIN 9.8 GM/dL (10.7-15.3); MCH 31.1 pg (25.7-33.7); MCHC 33.1 g/dl (32.0-36.0); MEAN PLT VOLUME 8.8 fl (7.5-11.1); NEUT % 76.5 % (42.8-82.8); PLATELET COUNT 240 10^3/uL (134-434); RBC 3.15 M/mm3 (3.60-5.2); RDW 16.4 % (11.6-15.6); WHITE BLOOD COUNT 7.2 K/mm3 (4.0-10.0)
[2022-10-16 10:05] LABS: POTASSIUM 4.1 mmol/L (3.5-5.1)
[2022-10-16 10:09] LABS: CALCIUM 8.9 mg/dL (8.5-10.1)
[2022-10-16 10:10] LABS: ALBUMIN 3.4 g/dl (3.4-5.0)
[2022-10-16 10:11] LABS: CREATININE 1.1 mg/dL (0.55-1.3)
[2022-10-16 10:12] LABS: BILIRUBIN,DIRECT 0.1 mg/dL (0.0-0.2); BILIRUBIN,TOTAL 0.4 mg/dL (0.2-1); TOT PROT 7.1 g/dl (6.4-8.2)
[2022-10-16] MEDS ORDERED: SODIUM CHLORIDE IVPB ONE (11:00)
[2022-10-16] MEDS ORDERED: TRASTUZUMAB ANNS IVPB ONE (11:00)
[2022-10-16 17:59] VITALS: RESP 18; TEMP 98.2
[2022-10-16 18:01] VITALS: BP 146/55; PULSE 73
[2022-10-16] MEDS ORDERED: PORTA CATH FLUSH 10 ML IVPUSH PRN (18:02)
== END 2022-10-16 12:50 | disposition home or self-care (01) ==
LOC: JONCCHEMO 09:22 → J7W 09:23 → JONCCHEMO 12:50
PROVIDERS: ATTEND Specialist
DX: Z51.11 Encounter for antineoplastic chemotherapy (principal); C50.919 Malignant neoplasm of unspecified site of unspecified female breast; Z17.0 Estrogen receptor positive status [ER+]
CPT/HCPCS: 36415; 80048; 80076; 85025; 96413; Q5117

== ENCOUNTER 2022-11-27 08:54 | Day surgery (SDC) | payer OTHER ==
[2022-11-27 09:27] LABS: BASO % 0.4 % (0-2.0); EOS % 1.4 % (0-4.5); HEMATOCRIT 31.2 % (32.4-45.2); HEMOGLOBIN 10.8 GM/dL (10.7-15.3); MCH 32.1 pg (25.7-33.7); MCHC 34.6 g/dl (32.0-36.0); MEAN CELL VOLUME 92.6 fl (80-96); MEAN PLT VOLUME 8.6 fl (7.5-11.1); MONO % 7.7 % (3.8-10.2); NEUT % 79.5 % (42.8-82.8); PLATELET COUNT 186 10^3/uL (134-434); RBC 3.37 M/mm3 (3.60-5.2); WHITE BLOOD COUNT 7.8 K/mm3 (4.0-10.0)
[2022-11-27 10:01] LABS: POTASSIUM 4.1 mmol/L (3.5-5.1)
[2022-11-27 10:02] LABS: CALCIUM 9.1 mg/dL (8.5-10.1)
[2022-11-27 10:03] LABS: ALBUMIN 3.3 g/dl (3.4-5.0); BLOOD UREA NITROGEN 35.4 mg/dL (7-18)
[2022-11-27 10:06] LABS: BILIRUBIN,DIRECT 0.1 mg/dL (0.0-0.2); CREATININE 1.2 mg/dL (0.55-1.3)
[2022-11-27 10:08] LABS: BILIRUBIN,TOTAL 0.4 mg/dL (0.2-1); TOT PROT 7.3 g/dl (6.4-8.2)
[2022-11-27] MEDS ORDERED: TRASTUZUMAB-ANNS 360 MG in SODIUM CHLORIDE 250 ML IVPB ONE (10:30)
[2022-11-27 13:21] VITALS: BP 122/52; PULSE 70; RESP 18; TEMP 98.2
[2022-11-27] MEDS ORDERED: PORTA CATH FLUSH 10 ML IVPUSH PRN (13:21)
== END 2022-11-27 12:10 | disposition home or self-care (01) ==
LOC: JONCCHEMO 08:54 → J7W 08:58 → JONCCHEMO 12:10
PROVIDERS: ATTEND Specialist
DX: Z51.11 Encounter for antineoplastic chemotherapy (principal); C50.919 Malignant neoplasm of unspecified site of unspecified female breast
CPT/HCPCS: 36415; 80048; 80076; 85025; 96413; Q5117

== ENCOUNTER 2023-01-08 12:30 | Day surgery (SDC) | payer OTHER ==
[2023-01-08 13:03] LABS: BASO % 0.4 % (0-2.0); EOS % 1.2 % (0-4.5); HEMATOCRIT 34.4 % (32.4-45.2); HEMOGLOBIN 11.5 GM/dL (10.7-15.3); LYMPH % 16.6 % (8-40); MCH 30.9 pg (25.7-33.7); MCHC 33.3 g/dl (32.0-36.0); MEAN CELL VOLUME 92.8 fl (80-96); MEAN PLT VOLUME 8.9 fl (7.5-11.1); MONO % 12.1 % (3.8-10.2); NEUT % 69.7 % (42.8-82.8); PLATELET COUNT 180 10^3/uL (134-434); RBC 3.71 M/mm3 (3.60-5.2); RDW 13.9 % (11.6-15.6); WHITE BLOOD COUNT 5.8 K/mm3 (4.0-10.0)
[2023-01-08 13:21] LABS: BLOOD UREA NITROGEN 34.4 mg/dL (7-18); CALCIUM 9.9 mg/dL (8.5-10.1)
[2023-01-08 13:22] LABS: ALBUMIN 3.5 g/dl (3.4-5.0)
[2023-01-08 13:25] LABS: BILIRUBIN,DIRECT 0.2 mg/dL (0.0-0.2); CREATININE 1.3 mg/dL (0.55-1.3)
[2023-01-08 13:26] LABS: BILIRUBIN,TOTAL 0.4 mg/dL (0.2-1); TOT PROT 7.6 g/dl (6.4-8.2)
[2023-01-08] MEDS ORDERED: TRASTUZUMAB-ANNS 360 MG in SODIUM CHLORIDE 250 ML IVPB ONE (15:00)
[2023-01-08 17:39] VITALS: BP 148/56; PULSE 71; RESP 18; TEMP 98
[2023-01-08] MEDS ORDERED: PORTA CATH FLUSH 10 ML IVPUSH PRN (17:39)
== END 2023-01-08 15:45 | disposition home or self-care (01) ==
LOC: JONCCHEMO 12:30 → J7W 12:31 → JONCCHEMO 15:45
PROVIDERS: ATTEND Internal Medicine Hematology & Oncology
DX: Z51.11 Encounter for antineoplastic chemotherapy (principal); C50.919 Malignant neoplasm of unspecified site of unspecified female breast
CPT/HCPCS: 36415; 80048; 80076; 85025; 96413; Q5117

== ENCOUNTER 2023-01-29 08:28 | Day surgery (SDC) | payer OTHER ==
[2023-01-29 09:33] LABS: BASO % 0.5 % (0-2.0); EOS % 1.4 % (0-4.5); HEMATOCRIT 32.9 % (32.4-45.2); LYMPH % 12.7 % (8-40); MCH 31.6 pg (25.7-33.7); MCHC 33.4 g/dl (32.0-36.0); MEAN CELL VOLUME 94.8 fl (80-96); MEAN PLT VOLUME 9.4 fl (7.5-11.1); MONO % 11.4 % (3.8-10.2); PLATELET COUNT 191 10^3/uL (134-434); RBC 3.47 M/mm3 (3.60-5.2); RDW 14.1 % (11.6-15.6); WHITE BLOOD COUNT 7.2 K/mm3 (4.0-10.0)
[2023-01-29 10:45] LABS: POTASSIUM 4.1 mmol/L (3.5-5.1)
[2023-01-29 10:47] LABS: ALBUMIN 3.4 g/dl (3.4-5.0); BLOOD UREA NITROGEN 37.2 mg/dL (7-18); CALCIUM 8.9 mg/dL (8.5-10.1)
[2023-01-29 10:50] LABS: BILIRUBIN,DIRECT 0.2 mg/dL (0.0-0.2); CREATININE 1.3 mg/dL (0.55-1.3)
[2023-01-29 10:52] LABS: BILIRUBIN,TOTAL 0.5 mg/dL (0.2-1); TOT PROT 7.6 g/dl (6.4-8.2)
[2023-01-29] MEDS ORDERED: TRASTUZUMAB-ANNS 360 MG in SODIUM CHLORIDE 250 ML IVPB ONE (11:00)
[2023-01-29 14:02] VITALS: BP 125/50; PULSE 66; RESP 18; TEMP 97.4
[2023-01-29] MEDS ORDERED: PORTA CATH FLUSH 10 ML IVPUSH PRN (14:02)
== END 2023-01-29 12:15 | disposition home or self-care (01) ==
LOC: JONCCHEMO 08:28 → J7W 08:29 → JONCCHEMO 12:15
PROVIDERS: ATTEND Internal Medicine Hematology & Oncology
DX: Z51.11 Encounter for antineoplastic chemotherapy (principal); C50.919 Malignant neoplasm of unspecified site of unspecified female breast
CPT/HCPCS: 36415; 80048; 80076; 85025; 96413; Q5117

== ENCOUNTER 2023-02-19 09:16 | Day surgery (SDC) | payer OTHER ==
[2023-02-19] MEDS ORDERED: TRASTUZUMAB-ANNS 360 MG in SODIUM CHLORIDE 250 ML IVPB ONE (10:00)
[2023-02-19 10:47] LABS: BASO % 0.5 % (0-2.0); HEMATOCRIT 32.8 % (32.4-45.2); LYMPH % 13.3 % (8-40); MCHC 33.4 g/dl (32.0-36.0); MEAN CELL VOLUME 95.8 fl (80-96); MEAN PLT VOLUME 9.1 fl (7.5-11.1); MONO % 10.7 % (3.8-10.2); NEUT % 74.5 % (42.8-82.8); PLATELET COUNT 174 10^3/uL (134-434); RBC 3.42 M/mm3 (3.60-5.2); RDW 14.4 % (11.6-15.6); WHITE BLOOD COUNT 6.1 K/mm3 (4.0-10.0)
[2023-02-19 11:11] LABS: POTASSIUM 4.3 mmol/L (3.5-5.1)
[2023-02-19 11:13] LABS: CALCIUM 10.1 mg/dL (8.5-10.1)
[2023-02-19 11:14] LABS: ALBUMIN 3.3 g/dl (3.4-5.0); BLOOD UREA NITROGEN 36.9 mg/dL (7-18)
[2023-02-19 11:16] LABS: BILIRUBIN,DIRECT 0.1 mg/dL (0.0-0.2)
[2023-02-19 11:17] LABS: CREATININE 1.3 mg/dL (0.55-1.3)
[2023-02-19 11:18] LABS: BILIRUBIN,TOTAL 0.5 mg/dL (0.2-1); TOT PROT 7.4 g/dl (6.4-8.2)
[2023-02-19 14:03] VITALS: RESP 20; TEMP 98.3
[2023-02-19] MEDS ORDERED: PORTA CATH FLUSH 10 ML IVPUSH PRN (14:08)
[2023-02-19 14:09] VITALS: BP 144/50; PULSE 66
== END 2023-02-19 13:30 | disposition home or self-care (01) ==
LOC: JONCCHEMO 09:16 → J7W 09:18 → JONCCHEMO 13:30
PROVIDERS: ATTEND Internal Medicine Hematology & Oncology
DX: Z51.11 Encounter for antineoplastic chemotherapy (principal); C50.919 Malignant neoplasm of unspecified site of unspecified female breast
CPT/HCPCS: 36415; 80048; 80076; 85025; 96413; Q5117

== ENCOUNTER 2023-03-12 13:57 | Day surgery (SDC) | payer OTHER ==
[2023-03-12 11:51] LABS: BASO % 0.4 % (0-2.0); EOS % 0.8 % (0-4.5); HEMATOCRIT 32.9 % (32.4-45.2); HEMOGLOBIN 11.3 GM/dL (10.7-15.3); LYMPH % 14.3 % (8-40); MCH 33.1 pg (25.7-33.7); MCHC 34.3 g/dl (32.0-36.0); MEAN CELL VOLUME 96.5 fl (80-96); MEAN PLT VOLUME 8.9 fl (7.5-11.1); MONO % 10.3 % (3.8-10.2); NEUT % 74.2 % (42.8-82.8); PLATELET COUNT 184 10^3/uL (134-434); RBC 3.41 M/mm3 (3.60-5.2); RDW 14.3 % (11.6-15.6); WHITE BLOOD COUNT 6.5 K/mm3 (4.0-10.0)
[2023-03-12 12:15] LABS: POTASSIUM 4.6 mmol/L (3.5-5.1)
[2023-03-12 12:17] LABS: CALCIUM 9.8 mg/dL (8.5-10.1)
[2023-03-12 12:18] LABS: ALBUMIN 3.3 g/dl (3.4-5.0); BLOOD UREA NITROGEN 35.8 mg/dL (7-18)
[2023-03-12 12:20] LABS: BILIRUBIN,DIRECT 0.2 mg/dL (0.0-0.2)
[2023-03-12 12:21] LABS: CREATININE 1.2 mg/dL (0.55-1.3)
[2023-03-12 12:22] LABS: TOT PROT 7.6 g/dl (6.4-8.2)
[2023-03-12 12:23] LABS: BILIRUBIN,TOTAL 0.4 mg/dL (0.2-1)
[2023-03-12] MEDS ORDERED: TRASTUZUMAB ANNS IVPB ONE (14:00)
[2023-03-12] MEDS ORDERED: SODIUM CHLORIDE IVPB ONE (14:00)
[2023-03-12 16:36] VITALS: RESP 18; TEMP 97.8
[2023-03-12 16:45] VITALS: BP 139/63; PULSE 69
[2023-03-12] MEDS ORDERED: PORTA CATH FLUSH 10 ML IVPUSH PRN (16:45)
== END 2023-03-12 15:00 | disposition home or self-care (01) ==
LOC: JONCCHEMO 13:57 → J7W 13:58 → JONCCHEMO 15:00
PROVIDERS: ATTEND Internal Medicine Hematology & Oncology
DX: Z51.11 Encounter for antineoplastic chemotherapy (principal); C50.919 Malignant neoplasm of unspecified site of unspecified female breast
CPT/HCPCS: 36415; 80048; 80076; 85025; 96413; Q5117

== ENCOUNTER 2023-04-02 09:30 | Day surgery (SDC) | payer OTHER ==
[2023-04-02 09:39] LABS: BASO % 0.5 % (0-2.0); HEMATOCRIT 34.2 % (32.4-45.2); HEMOGLOBIN 11.6 GM/dL (10.7-15.3); LYMPH % 16.5 % (8-40); MCH 33.2 pg (25.7-33.7); MCHC 33.9 g/dl (32.0-36.0); MEAN CELL VOLUME 98.2 fl (80-96); MEAN PLT VOLUME 8.6 fl (7.5-11.1); MONO % 9.9 % (3.8-10.2); NEUT % 72.1 % (42.8-82.8); PLATELET COUNT 180 10^3/uL (134-434); RBC 3.48 M/mm3 (3.60-5.2); RDW 13.8 % (11.6-15.6); WHITE BLOOD COUNT 6.6 K/mm3 (4.0-10.0)
[2023-04-02 10:07] LABS: POTASSIUM 4.4 mmol/L (3.5-5.1)
[2023-04-02 10:10] LABS: CALCIUM 9.5 mg/dL (8.5-10.1)
[2023-04-02 10:11] LABS: ALBUMIN 3.6 g/dl (3.4-5.0); BLOOD UREA NITROGEN 30.2 mg/dL (7-18)
[2023-04-02 10:13] LABS: BILIRUBIN,DIRECT 0.2 mg/dL (0.0-0.2)
[2023-04-02 10:14] LABS: CREATININE 1.4 mg/dL (0.55-1.3)
[2023-04-02 10:15] LABS: BILIRUBIN,TOTAL 0.5 mg/dL (0.2-1); TOT PROT 7.6 g/dl (6.4-8.2)
[2023-04-02] MEDS: SODIUM CHLORIDE IVPB ONE (11:35)
[2023-04-02] MEDS: TRASTUZUMAB ANNS IVPB ONE (11:35)
[2023-04-02] MEDS: PORTA CATH FLUSH 10 ML IVPUSH PRN (12:10)
[2023-04-02 17:06] VITALS: RESP 18; TEMP 98.2
[2023-04-02 17:15] VITALS: BP 130/47; PULSE 62
== END 2023-04-02 12:35 | disposition home or self-care (01) ==
LOC: JONCCHEMO 09:30 → J7W 09:37 → JONCCHEMO 12:35
PROVIDERS: ATTEND Internal Medicine Hematology & Oncology
DX: Z51.11 Encounter for antineoplastic chemotherapy (principal); C50.911 Malignant neoplasm of unspecified site of right female breast
CPT/HCPCS: 36415; 80048; 80076; 85025; 96413; Q5117

== ENCOUNTER 2023-04-23 12:00 | Day surgery (SDC) | payer OTHER ==
[2023-04-23 12:59] LABS: BASO % 0.4 % (0-2.0); EOS % 0.8 % (0-4.5); HEMATOCRIT 34.2 % (32.4-45.2); HEMOGLOBIN 11.8 GM/dL (10.7-15.3); LYMPH % 16.7 % (8-40); MCH 33.5 pg (25.7-33.7); MCHC 34.4 g/dl (32.0-36.0); MEAN CELL VOLUME 97.5 fl (80-96); MONO % 11.1 % (3.8-10.2); PLATELET COUNT 180 10^3/uL (134-434); RBC 3.51 M/mm3 (3.60-5.2); RDW 13.5 % (11.6-15.6); WHITE BLOOD COUNT 6.2 K/mm3 (4.0-10.0)
[2023-04-23 13:41] LABS: POTASSIUM 4.3 mmol/L (3.5-5.1)
[2023-04-23 13:43] LABS: BLOOD UREA NITROGEN 27.9 mg/dL (7-18); CALCIUM 9.6 mg/dL (8.5-10.1)
[2023-04-23 13:44] LABS: ALBUMIN 3.7 g/dl (3.4-5.0)
[2023-04-23 13:45] LABS: BILIRUBIN,DIRECT 0.1 mg/dL (0.0-0.2)
[2023-04-23 13:47] LABS: CREATININE 1.3 mg/dL (0.55-1.3)
[2023-04-23 13:48] LABS: BILIRUBIN,TOTAL 0.5 mg/dL (0.2-1); TOT PROT 7.9 g/dl (6.4-8.2)
[2023-04-23] MEDS: SODIUM CHLORIDE IVPB ONE (14:32)
[2023-04-23] MEDS: TRASTUZUMAB ANNS IVPB ONE (14:32)
[2023-04-23 15:31] VITALS: RESP 18; TEMP 98.9
[2023-04-23 15:36] VITALS: BP 133/46; PULSE 65
[2023-04-23] MEDS ORDERED: PORTA CATH FLUSH 10 ML IVPUSH PRN (15:36)
== END 2023-04-23 15:15 | disposition home or self-care (01) ==
LOC: JONCCHEMO 12:00 → J7W 12:00 → JONCCHEMO 15:15
PROVIDERS: ATTEND Internal Medicine Hematology & Oncology
DX: Z51.11 Encounter for antineoplastic chemotherapy (principal); C50.911 Malignant neoplasm of unspecified site of right female breast
CPT/HCPCS: 36415; 80048; 80076; 85025; 96413; Q5117

== ENCOUNTER 2023-05-14 09:07 | Day surgery (SDC) | payer OTHER ==
[2023-05-14 10:14] VITALS: RESP 18; TEMP 98.2
[2023-05-14 10:31] LABS: BASO % 0.6 % (0-2.0); EOS % 1.1 % (0-4.5); HEMATOCRIT 34.6 % (32.4-45.2); HEMOGLOBIN 11.5 GM/dL (10.7-15.3); LYMPH % 15.1 % (8-40); MCH 32.8 pg (25.7-33.7); MCHC 33.2 g/dl (32.0-36.0); MEAN CELL VOLUME 98.9 fl (80-96); MEAN PLT VOLUME 9.7 fl (7.5-11.1); NEUT % 71.2 % (42.8-82.8); PLATELET COUNT 172 10^3/uL (134-434); RDW 12.8 % (11.6-15.6); WHITE BLOOD COUNT 5.8 K/mm3 (4.0-10.0)
[2023-05-14 10:43] LABS: ALBUMIN 3.5 g/dl (3.4-5.0); CALCIUM 9.6 mg/dL (8.5-10.1)
[2023-05-14 10:44] LABS: BLOOD UREA NITROGEN 35.7 mg/dL (7-18)
[2023-05-14 10:47] LABS: BILIRUBIN,DIRECT 0.2 mg/dL (0.0-0.2); CREATININE 1.3 mg/dL (0.55-1.3)
[2023-05-14 10:48] LABS: TOT PROT 7.6 g/dl (6.4-8.2)
[2023-05-14 10:49] LABS: BILIRUBIN,TOTAL 0.5 mg/dL (0.2-1)
[2023-05-14] MEDS: TRASTUZUMAB ANNS IVPB ONE (12:01)
[2023-05-14] MEDS: SODIUM CHLORIDE IVPB ONE (12:01)
[2023-05-14] MEDS: PORTA CATH FLUSH 10 ML IVPUSH PRN (12:35)
[2023-05-14 15:23] VITALS: BP 157/47; PULSE 69
== END 2023-05-14 13:00 | disposition home or self-care (01) ==
LOC: JONCCHEMO 09:07 → J7W 09:08 → JONCCHEMO 13:00
PROVIDERS: ATTEND Internal Medicine Hematology & Oncology
DX: Z51.11 Encounter for antineoplastic chemotherapy (principal); C50.911 Malignant neoplasm of unspecified site of right female breast
CPT/HCPCS: 36415; 80048; 80076; 85025; 96413; Q5117

== ENCOUNTER 2023-06-04 09:08 | Day surgery (SDC) | payer OTHER ==
[2023-06-04 09:33] LABS: BASO % 0.5 % (0-2.0); EOS % 0.9 % (0-4.5); HEMATOCRIT 33.6 % (32.4-45.2); HEMOGLOBIN 11.1 GM/dL (10.7-15.3); MCH 32.6 pg (25.7-33.7); MCHC 33.1 g/dl (32.0-36.0); MEAN CELL VOLUME 98.7 fl (80-96); MEAN PLT VOLUME 9.3 fl (7.5-11.1); MONO % 9.4 % (3.8-10.2); NEUT % 72.2 % (42.8-82.8); PLATELET COUNT 162 10^3/uL (134-434); RDW 12.8 % (11.6-15.6); WHITE BLOOD COUNT 6.5 K/mm3 (4.0-10.0)
[2023-06-04 10:00] LABS: POTASSIUM 4.3 mmol/L (3.5-5.1)
[2023-06-04] MEDS: PORTA CATH FLUSH 10 ML IVPUSH PRN (10:00)
[2023-06-04 10:02] LABS: ALBUMIN 3.4 g/dl (3.4-5.0); BLOOD UREA NITROGEN 37.2 mg/dL (7-18); CALCIUM 9.2 mg/dL (8.5-10.1)
[2023-06-04 10:05] LABS: BILIRUBIN,DIRECT 0.2 mg/dL (0.0-0.2); CREATININE 1.3 mg/dL (0.55-1.3)
[2023-06-04 10:07] LABS: BILIRUBIN,TOTAL 0.5 mg/dL (0.2-1); TOT PROT 7.3 g/dl (6.4-8.2)
[2023-06-04] MEDS: SODIUM CHLORIDE IVPB ONE (10:55)
[2023-06-04] MEDS: TRASTUZUMAB ANNS IVPB ONE (10:55)
[2023-06-04 16:34] VITALS: BP 143/87; PULSE 85; RESP 16; TEMP 97.1
== END 2023-06-04 11:50 | disposition home or self-care (01) ==
LOC: JONCCHEMO 09:08 → J7W 09:09 → JONCCHEMO 11:50
PROVIDERS: ATTEND Internal Medicine Hematology & Oncology
DX: Z51.11 Encounter for antineoplastic chemotherapy (principal); C50.011 Malignant neoplasm of nipple and areola, right female breast
CPT/HCPCS: 36415; 80048; 80076; 85025; 96413; Q5117

== ENCOUNTER 2023-06-25 09:18 | Day surgery (SDC) | payer OTHER ==
[2023-06-25 09:35] LABS: BASO % 0.7 % (0-2.0); EOS % 1.1 % (0-4.5); HEMATOCRIT 32.5 % (32.4-45.2); HEMOGLOBIN 11.1 GM/dL (10.7-15.3); MCH 33.3 pg (25.7-33.7); MCHC 34.2 g/dl (32.0-36.0); MEAN CELL VOLUME 97.4 fl (80-96); MEAN PLT VOLUME 9.8 fl (7.5-11.1); NEUT % 74.2 % (42.8-82.8); PLATELET COUNT 167 10^3/uL (134-434); RBC 3.33 M/mm3 (3.60-5.2); RDW 13.5 % (11.6-15.6); WHITE BLOOD COUNT 6.7 K/mm3 (4.0-10.0)
[2023-06-25 09:44] LABS: CHLORIDE 107 mmol/L (98-107); POTASSIUM 4.3 mmol/L (3.5-5.1); SODIUM 141 mmol/L (136-145)
[2023-06-25 09:46] LABS: BLOOD UREA NITROGEN 32.4 mg/dL (7-18); CALCIUM 9.2 mg/dL (8.5-10.1)
[2023-06-25 09:48] LABS: ALBUMIN 3.3 g/dl (3.4-5.0); ANION GAP 5 mmol/L (4-13); CO2 29 mmol/L (21-32); GLUCOSE,RANDOM 98 mg/dL (74-106)
[2023-06-25 09:50] LABS: SGPT/ALT 25 U/L (13-61)
[2023-06-25 09:51] LABS: BILIRUBIN,DIRECT 0.2 mg/dL (0.0-0.2); CREATININE 1.3 mg/dL (0.55-1.3); SGOT/AST 21 U/L (15-37)
[2023-06-25 09:52] LABS: ALK PHOS 72 U/L (45-117); BILIRUBIN,TOTAL 0.5 mg/dL (0.2-1); TOT PROT 7.5 g/dl (6.4-8.2)
[2023-06-25] MEDS: TRASTUZUMAB ANNS IVPB ONE (10:59)
[2023-06-25] MEDS: SODIUM CHLORIDE IVPB ONE (10:59)
[2023-06-25] MEDS: PORTA CATH FLUSH 10 ML IVPUSH PRN (11:40)
[2023-06-25 16:43] VITALS: BP 132/79; PULSE 64; RESP 20; TEMP 98.4
== END 2023-06-25 12:00 | disposition home or self-care (01) ==
LOC: JONCCHEMO 09:18 → J7W 09:19 → JONCCHEMO 12:00
PROVIDERS: ATTEND Internal Medicine Hematology & Oncology
DX: Z51.11 Encounter for antineoplastic chemotherapy (principal); C50.011 Malignant neoplasm of nipple and areola, right female breast
CPT/HCPCS: 36415; 80048; 80076; 85025; 96413; Q5117

== ENCOUNTER 2023-11-30 12:06 | Emergency (ER) | payer OTHER ==
[2023-11-30 12:11] VITALS: RESP 18; TEMP 98; BMI 28.1
[2023-11-30 13:03] LABS: BASO % 0.4 % (0-2.0); HEMATOCRIT 37.1 % (32.4-45.2); HEMOGLOBIN 12.6 GM/dL (10.7-15.3); LYMPH % 16.3 % (8-40); MCH 32.6 pg (25.7-33.7); MCHC 33.8 g/dl (32.0-36.0); MEAN CELL VOLUME 96.4 fl (80-96); MONO % 10.4 % (3.8-10.2); NEUT % 71.9 % (42.8-82.8); PLATELET COUNT 187 10^3/uL (134-434); RBC 3.85 M/mm3 (3.60-5.2); RDW 13.8 % (11.6-15.6); WHITE BLOOD COUNT 5.5 K/mm3 (4.0-10.0)
[2023-11-30 13:23] LABS: INR 1.95 (0.83-1.09); PROTHROMBIN TIME (PATIENT) 21.6 SEC (9.7-13.0)
[2023-11-30 13:24] LABS: CHLORIDE 104 mmol/L (98-107); POTASSIUM 4.2 mmol/L (3.5-5.1); SODIUM 136 mmol/L (136-145)
[2023-11-30 13:27] LABS: ALBUMIN 3.6 g/dl (3.4-5.0); ANION GAP 4 mmol/L (4-13); BLOOD UREA NITROGEN 26.1 mg/dL (7-18); CALCIUM 9.5 mg/dL (8.5-10.1); CO2 28 mmol/L (21-32); GLUCOSE,RANDOM 111 mg/dL (74-106); MAGNESIUM 2.4 mg/dL (1.8-2.4)
[2023-11-30 13:30] LABS: CREATININE 1.3 mg/dL (0.55-1.3); PHOSPHOROUS 3.1 mg/dL (2.5-4.9); SGOT/AST 25 U/L (15-37); SGPT/ALT 27 U/L (13-61)
[2023-11-30 13:32] LABS: BILIRUBIN,TOTAL 0.5 mg/dL (0.2-1); TOT PROT 7.8 g/dl (6.4-8.2)
[2023-11-30 13:33] LABS: ALK PHOS 84 U/L (45-117)
[2023-11-30 14:08] LABS: ERYTHROCYTE SEDIMENTATION RATE 85 mm/hr (0-30)
[2023-11-30] MEDS ORDERED: ASPIRIN 81 MG CHEWABLE TABLETS PO ONE (16:46)
[2023-11-30 18:06] VITALS: BP 156/63; PULSE 75
== END 2023-11-30 19:34 | disposition home or self-care (01) ==
LOC: JER 12:06
DX: R42 Dizziness and giddiness (principal); R53.1 Weakness; R51.9 Headache, unspecified; Z20.822 Contact with and (suspected) exposure to COVID-19
CPT/HCPCS: 0241U-QW; 36415; 70450-TC; 71046-TC-FY; 71275-TC; 80053; 83735; 84100; 84484; 85025; 85610; 85651; 85730; 86140; 86850; 86900; 86901; 93005; 93010; 99285-25; Q9967

== ENCOUNTER 2023-12-20 19:39 | Emergency (ER) | payer OTHER ==
[2023-12-20 20:19] VITALS: BP 152/73; PULSE 66; RESP 16; TEMP 98; BMI 26.2
== END 2023-12-20 21:01 | disposition home or self-care (01) ==
LOC: JER 19:39
DX: R10.30 Lower abdominal pain, unspecified (principal); R20.8 Other disturbances of skin sensation
CPT/HCPCS: 93005; 93010; 99283-25

== ENCOUNTER 2024-02-28 01:10 | Emergency (ER) | payer OTHER ==
[2024-02-28 01:31] VITALS: BP 150/70; PULSE 84; RESP 18; TEMP 98; BMI 26.2
[2024-02-28] MEDS ORDERED: predniSONE 20 MG TABLET (UD) ONE (03:57)
[2024-02-28] MEDS ORDERED: ACETAMINOPHEN/CAFFEINE/BUTALBITAL 1 TAB ONE (03:58)
[2024-02-28] MEDS: predniSONE 20 MG TABLET (UD) PO ONE (04:11)
[2024-02-28] MEDS: ACETAMINOPHEN/CAFFEINE/BUTALBITAL 1 TAB PO ONE (04:11)
[2024-02-28 04:13] LABS: BASO % 0.6 % (0-2.0); EOS % 0.8 % (0-4.5); HEMATOCRIT 36.7 % (32.4-45.2); HEMOGLOBIN 12.4 GM/dL (10.7-15.3); LYMPH % 17.5 % (8-40); MCH 32.6 pg (25.7-33.7); MCHC 33.7 g/dl (32.0-36.0); MEAN CELL VOLUME 96.7 fl (80-96); MEAN PLT VOLUME 8.5 fl (7.5-11.1); MONO % 9.3 % (3.8-10.2); NEUT % 71.8 % (42.8-82.8); PLATELET COUNT 189 10^3/uL (134-434); RBC 3.79 M/mm3 (3.60-5.2); RDW 13.5 % (11.6-15.6)
[2024-02-28 04:50] LABS: CHLORIDE 107 mmol/L (98-107); POTASSIUM 4.5 mmol/L (3.5-5.1); SODIUM 139 mmol/L (136-145)
[2024-02-28 04:52] LABS: ALBUMIN 3.8 g/dl (3.4-5.0); ANION GAP 3 mmol/L (4-13); CALCIUM 9.7 mg/dL (8.5-10.1); CO2 29 mmol/L (21-32)
[2024-02-28 04:53] LABS: GLUCOSE,RANDOM 109 mg/dL (74-106)
[2024-02-28 04:56] LABS: CREATININE 1.3 mg/dL (0.55-1.3); SGOT/AST 28 U/L (15-37); SGPT/ALT 31 U/L (13-61)
[2024-02-28 04:57] LABS: BILIRUBIN,TOTAL 0.5 mg/dL (0.2-1)
[2024-02-28 04:59] LABS: ALK PHOS 73 U/L (45-117)
[2024-02-28 05:55] LABS: ERYTHROCYTE SEDIMENTATION RATE 67 mm/hr (0-30)
== END 2024-02-28 06:22 | disposition home or self-care (01) ==
LOC: JER 01:10
DX: R51.9 Headache, unspecified (principal); M31.6 Other giant cell arteritis
CPT/HCPCS: 36415; 80053; 85025; 85651; 86140; 99283-25

== ENCOUNTER 2024-05-07 03:58 | Emergency (ER) | payer OTHER ==
[2024-05-07 04:09] VITALS: BMI 25.4
[2024-05-07] MEDS ORDERED: ACETAMINOPHEN INJECTION 100 ML ONE (04:30)
[2024-05-07 04:50] LABS: ABSOLUTE IMMATURE GRANULOCYTES 0.01 x10^3/uL (0.0-0.031); BASOPHILS # 0.04 x10^3/uL (0.01-0.08); EOSINOPHIL % 0.9 % (0.7-5.8); EOSINOPHILS # 0.07 x10^3/uL (0.04-0.36); HEMATOCRIT 37.8 % (34.1-44.9); HEMOGLOBIN 12.2 g/dL (11.2-15.7); MCHC 32.3 g/dl (32.2-35.5); MEAN CELL VOLUME 98.7 fl (79.4-94.8); MEAN PLT VOLUME 10.6 fl (9.4-12.3); MONOCYTE # 0.69 x10^3/uL (0.24-0.86); MONOCYTE % 9.2 % (4.7-12.5); PLATELET COUNT # 190 x10^3/uL (182-369); RDW 12.5 % (12.5-17.0)
[2024-05-07] MEDS: ACETAMINOPHEN 1000 MG/100 ML BAG IVPB ONE (04:56)
[2024-05-07 05:13] LABS: CHLORIDE 106 mmol/L (98-107); POTASSIUM 4.1 mmol/L (3.5-5.1); SODIUM 139 mmol/L (136-145)
[2024-05-07 05:16] LABS: ANION GAP 7 mmol/L (4-13); BLOOD UREA NITROGEN 19.8 mg/dL (7-18); CALCIUM 9.8 mg/dL (8.5-10.1); CO2 26 mmol/L (21-32); GLUCOSE,RANDOM 110 mg/dL (74-106)
[2024-05-07 05:19] LABS: CREATININE 1.3 mg/dL (0.55-1.3); SGOT/AST 31 U/L (15-37); SGPT/ALT 30 U/L (13-61)
[2024-05-07 05:21] LABS: BILIRUBIN,TOTAL 0.6 mg/dL (0.2-1); TOT PROT 8.3 g/dl (6.4-8.2)
[2024-05-07 05:22] LABS: ALK PHOS 82 U/L (45-117)
[2024-05-07 06:13] LABS: ERYTHROCYTE SEDIMENTATION RATE 53 mm/hr (0-30)
[2024-05-07 09:22] VITALS: BP 165/70; PULSE 75; RESP 16; TEMP 98.6
== END 2024-05-07 09:23 | disposition home or self-care (01) ==
LOC: JER 03:58
PROC: 3E033NZ Introduction of Analgesics, Hypnotics, Sedatives into Peripheral Vein, Percutaneous Approach (ICD-10-PCS; principal; 2024-05-07)
DX: N64.89 Other specified disorders of breast (principal); R51.9 Headache, unspecified
CPT/HCPCS: 36415; 70450-TC; 71260-TC; 80053; 85025; 85651; 86140; 99285-25; J0131